=== PATIENT | male | born 1965 | race Caucasian/White ===

== ENCOUNTER → 2018-05-05 10:26 | Outpatient (CLI) | payer OTHER, SELFPAY ==
[2018-05-05 11:16] LABS: Erythrocyte Sedimentation Rate 25 mm/hr (0-20)
[2018-05-05 11:17] LABS: Absolute Lymphocyte Count 2.13 X10^3/ul (0.83-4.51); Absolute Neutrophil Count 4.9 X10^3/uL (2.0-7.7); Basophil# 0.03 X10^3/uL; Basophil% 0.4 % (0-1); Eosinophil# 0.21 X10^3/uL; Eosinophils% 2.6 % (0-5); Hematocrit 43.3 % (40-54); Lymphocyte # 2.13 X10^3/ul (4.0); Lymphocyte % 26.4 % (19-41); Mean Corp Hgb Conc 34.6 g/gl (32-36); Mean Corpuscular Hgb 29.6 pg (27.0-32.0); Mean Corpuscular Volume 85.6 fL (80-94); Mean Platelet Vol. 10.3 fl (6.2-12.0); Monocyte# 0.75 X10^3/uL; Monocyte% 9.3 % (0-10); Neutrophil # 4.93 X10^3/uL (2.7-7.7); Neutrophil % 61.1 % (47-70); Platelet Count 263 K/mm3 (150-450); RBC Distribution Width CV 14.7 % (11.6-14.6); RBC Distribution Width SD 45.3 fl (35.1-43.9); Red Blood Count 5.06 M/mm3 (4.6-6.2); White Blood Count 8.1 K/mm3 (4.4-11.0)
[2018-05-05 11:19] LABS: POSITIVE COUNT NO; POSITIVE DIFFERENTIAL NO; POSITIVE MORPHOLOGY NO
[2018-05-05 11:37] LABS: CRP 4.04 mg/L (0.0-3.0)
== END ==
PROVIDERS: Family Provider Family Medicine; PCP Family Medicine; Visit Provider Specialist
DX: M17.11 Unilateral primary osteoarthritis, right knee (principal)
CPT/HCPCS: 36415; 85025; 85652; 86140

== ENCOUNTER → 2019-02-09 08:22 | Outpatient (CLI) | payer OTHER, SELFPAY ==
[2016-01-24 08:13] VITALS: BMI 30.6
--- NOTE | 2019-02-09 08:36 | EKG12_ITS ---
Test Reason : PRE-OP Blood Pressure : / mmHG Vent. Rate : 097 BPM Atrial Rate : 097 BPM P-R Int : 160 ms QRS Dur : 088 ms QT Int : 318 ms P-R-T Axes : 057 -18 061 degrees QTc Int : 403 ms Normal sinus rhythm Normal ECG Confirmed by BRANDIE MEDEROS, JOEY ([id number]), slot editor CARLOS HANNAH ([id number] on 02/10/2019 4:05:34 PM Referred By: Troy Adam Confirmed By:JOEY DIEGO MD
[2019-02-09 08:55] LABS: Hematocrit 42.1 % (40-54); Hemoglobin 14.1 g/dl (13.0-16.5); Mean Corp Hgb Conc 33.5 g/gl (32-36); Mean Corpuscular Hgb 30.1 pg (27.0-32.0); Mean Corpuscular Volume 89.8 fL (80-94); Mean Platelet Vol. 9.8 fl (6.2-12.0); Platelet Count 273 K/mm3 (150-450); RBC Distribution Width CV 14.2 % (11.6-14.6); RBC Distribution Width SD 46.3 fl (35.1-43.9); Red Blood Count 4.69 M/mm3 (4.6-6.2); White Blood Count 8.4 K/mm3 (4.4-11.0)
[2019-02-09 08:56] LABS: Scan Indicated on CBC? Y/N NO
[2019-02-09 09:20] LABS: Anion Gap 6 (5-15); BUN 17 mg/dL (7-18); Calcium,Total 8.8 mg/dL (8.5-10.1); Chloride 104 mmol/L (98-107); EST Glomerular Filtration Rate 84 mL/min (>60); Est Glom Filt Rate - Afr Amer 101 mL/min (>60); Glucose 291 mg/dL (74-106); Potassium 4.5 mmol/L (3.5-5.1); Sodium Level 138 mmol/L (136-145)
[2019-02-09 09:28] LABS: Hemoglobin A1c 8.8 % (4.2-6.3)
== END ==
PROVIDERS: Family Provider Family Medicine; PCP Family Medicine; Referring Provider Physician Assistant Surgical; Visit Provider Physician Assistant Surgical
DX: Z01.818 Encounter for other preprocedural examination (principal); Z01.810 Encounter for preprocedural cardiovascular examination
CPT/HCPCS: 36415; 80048; 83036; 85027; 93005

== ENCOUNTER 2019-12-16 09:54 | Inpatient (IN) | payer OTHER, SELFPAY ==
[2019-11-25 10:08] VITALS: BP 127/77; PULSE 86; RESP 16; TEMP 36.8; O2SAT 97; BMI 31.0
[2019-11-25 10:52] LABS: Absolute Lymphocyte Count 2.68 X10^3/uL (0.83-4.51); Basophil# 0.04 X10^3/uL; Basophil% 0.4 % (0-1); Eosinophil# 0.21 X10^3/uL; Eosinophils% 1.9 % (0-5); Hematocrit 45.7 % (40-54); Hemoglobin 15.1 g/dL (13.0-16.5); Lymphocyte # 2.68 X10^3/ul (4.0); Lymphocyte % 24.8 % (19-41); Mean Corpuscular Hgb 28.8 pg (27.0-32.0); Mean Platelet Vol. 9.4 fl (6.2-12.0); Monocyte# 0.79 X10^3/uL; Monocyte% 7.3 % (0-10); NRBC Flagged by Analyzer 0 % (0-5); Neutrophil # 7.03 X10^3/uL (2.7-7.7); Neutrophil % 65.1 % (47-70); Platelet Count 274 K/mm3 (150-450); RBC Distribution Width CV 13.9 % (11.6-14.6); RBC Distribution Width SD 44.3 fl (35.1-43.9); Red Blood Count 5.25 M/mm3 (4.6-6.2); White Blood Count 10.8 K/mm3 (4.4-11.0)
[2019-11-25 11:04] LABS: Anion Gap 5 (5-15); BUN 12 mg/dL (7-18); BUN/Creat Ratio 13.7 RATIO (10-20); Chloride 103 mmol/L (98-107); Creatinine, Serum 0.88 mg/dL (0.70-1.30); EST Glomerular Filtration Rate 97 mL/min (>60); Est Glom Filt Rate - Afr Amer 117 mL/min (>60); Estimated Creatinine Clearance 104.58 ml/min; Glucose 79 mg/dL (74-106); Potassium 3.9 mmol/L (3.5-5.1); Sodium Level 134 mmol/L (136-145)
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
[2019-12-16] VITALS (15 sets, daily range): BP systolic 105–155; BP diastolic 72–84; PULSE 104–120; RESP 16–26; TEMP 36.4–37.5; O2SAT 93–98; BMI 31.0
[2019-12-16 10:30] LABS: Bedside Glucose 110 mg/dL (70-110)
[2019-12-16] MEDS: Scopolamine 1mg/72hr Patch 1 PATCH TRANSDERM. (10:42)
[2019-12-16] MEDS: Gabapentin 600 MG Tablet PO (10:42)
[2019-12-16] MEDS: Acetaminophen 500 MG Tablet 1000 MG PO ×2 (10:42→22:42)
[2019-12-16] MEDS: Celecoxib 200 MG Capsule 400 MG PO (10:42)
[2019-12-16] MEDS: Lactated Ringers 1,000 ML 999 ML IV (10:50)
[2019-12-16] MEDS: Cefazolin 2 GM in 0.9% Normal Saline 100 ML IV ×2 (12:07→15:43)
[2019-12-16] MEDS: Lactated Ringers 1,000 ML 125 ML IV ×3 (14:30→20:07)
--- NOTE | 2019-12-16 15:39 | PCM.OPRPT ---
Report of Operation Date of Procedure: 12/16/19 Pre-Operative Diagnosis: Painful left total knee arthroplasty, aseptic loosening Post-Operative Diagnosis: Painful left total knee arthroplasty, aseptic loosening Surgery/Procedure Performed:: Revision left total knee arthroplasty entire femoral and tibial components as well as patella. Description of Surgical Findings:: Stable knee with good patella tracking frame bender: Arvin Adam Type of Anesthesia:: Spinal Anesthesiologist: Teo Armstrong Special Medications: 2 g Ancef, 1 g TXA at incision, 1 g TXA closure, 10 mg Decadron, joint cocktail (5 mg Duramorph, 30 mL of 0.5% Ropivicaine, 1000 units of epinephrine, 30 mg of Toradol) Specimen's removed: 3 separate specimens were sent to microbiology Estimated Blood Loss (mL): 250 Fluids Replaced: 1400 ml crystalloid Description of Procedure: Implants used: Femur: [] Tibia: [] Poly: [] Patella: [] Brief history operative indications: 54-year-old male with left knee pain after total knee replacement. Patient had original partial knee replacement in 2011 followed by revision to total knee replacement in 2012. Subsequently had evidence of aseptic loosening on radiographs and progressive pain. Action was ruled out and after patient failed conservative treatment we elected to proceed with a revision left total knee replacement. Preoperative discussion included risks of surgery including but not short of infection, blood loss which could require transfusion, DVTs, PEs, nervous damage, infection, arthrofibrosis, general risk of anesthesia including loss of life. Patient demonstrates an understanding and was able to sign informed consent. Procedure: On the date of procedure patient's left lower extremity was marked in the preoperative area. The patient was then taken back to the operating room where the patient was placed on the table in the supine position. All bony prominences were identified a well-padded. Anesthesia assumed control of the C-spine and airway and remained controlled throughout the remainder of the procedure. A tourniquet was placed on the left upper thigh and the leg was prepped in a sterile fashion. The surgeon then scrubbed at this time. Upon reentering the room right lower extremity was draped in a standard orthopedic fashion. A timeout was then called and everyone agreed upon the side, the site, the procedure to be performed, patient's identity and antibiotics given. An Esmarch bandage was used to exsanguinate the extremity and the tourniquet was placed up to 250 mmHg with the knee in flexion. A midline skin incision was made using the previous incision and extending it proximally and distally to identify normal tissue planes. Medial and lateral flaps were developed appropriate releases. The standard medial parapatellar arthrotomy was made and the patella was subluxed laterally. At this time an aggressive synovectomy was performed re-creating the medial gutter first, then the suprapatellar pouch than the lateral gutter. Once this was completed the knee was flexed up an osteotome was used to remove the tibial polyethylene. The remainder of the synovium was debrided. The standard deep MCL release was done and the patella scar pad was resected and lateral releases were performed. Next our attention was directed to the femur. Wear flexible osteotomes and TPS saw were used to break up the implant cement interface. This was done both medially and laterally. After this is adequately lucent bone tamp was used to remove the femur component from the end of the bone. This was done with minimal bone loss. At this time attention was now directed towards the proximal tibia. Possible osteotome and TPS saw were then used to break up the proximal tibia implant interface and stacked osteotomes were used to remove the tibial implant. This was done with minimal bone loss. Our attention was then turned to the tibia where the intramedullary canal was reamed to 15 mm and intramedullary tibial cutting guide was used to make the appropriate tibial cut 90 degrees from the mechanical axis. A drop janny was then used to verify the cut. The proximal tibia was reamed for a size B:. We also elected to place a medial 5 mm tibial augment because patient had a medial uncontained tibial defect from previous surgery. A size 5 tibial base plate was selected. the knee was flexed and the tibial component was pinned into place and the boss reamer was used to ream the proximal medullary canal. The trial implant was impacted in its prepared position. Our attention was then turned back to the femur or the femur intramedullary canal was reamed to 17 mm. At this time a 100 mm x 17 mm intramedullary stem was placed on a 5 mm TC G distal cutting guide. The distal cutting guide was pinned in place at the appropriate joint line using the medial epicondyle to set the joint line. Once this was done the 11 mm tibial trial was put into place and the knee was flexed up to set the appropriate tibial rotation and balance the joint. Once we are happy with the balance of the joint a second pin was placed to hold the rotation in place. Once this was pinned in place anterior cut, anterior chamfer cut, posterior cut and posterior chamfer cuts were made. Based on these cuts we knew we would need a 10 mm distal and 5 mm posterior augment medially, and 10 mm distal and 5 mm posterior augment laterally. The box cutting guide was then pinned into place and the box cut was made using a reciprocating saw. The appropriate trials were then placed on the femur and tibia. A trial polyethylene was trialed to ensure proper balancing and stability of the knee. Patella tracking, was then verified and corrected appropriately as needed. Our attention was then directed to the patella. Patella was removed using a saw and bur to remove the pegs. At this time a 35 mm patella was prepared and the trial button was placed. Patellar tracking was again checked and deemed appropriate. At this time the tourniquet was let down. Hemostasis was obtained and final components were verified and opened, 6 liters of normal saline were irrigated throughout the joint under low-pressure lavage. Then the cement was mixed in a vacuum. Maris Simplex cement with tobramycin was used. The wound was copiously irrigated with normal saline. Prior to cementing the tourniquet was placed back up When the cement was ready the components were cemented into place starting with the tibia, femur with the knee in extension a press-fit patella was used and impacted into place. The trial poly component was placed and the knee was placed in full extension. All excess cement was removed in the process. Once the cement had cured the tracking, alignment and balance were verified and a size 11 mm TS polyethylene component was placed. Once the final components were placed the wound was lavaged with a chlorhexidine solution the wound was copiously irrigated with normal saline solution and the remainder of the periarticular injection was given. The wound was closed in a layer caballero fashion using #1 vicryl interrupted sutures for the arthrotomy, 2-0 interrupted Vicryl for the subcuticular layer and vik for final skin closure. A sterile compressive dressing was then placed. The patient was then awakened from anesthesia, transferred to the [facility] and transferred to the PACU for recovery. Post op plan DVT ppx: Xarelto due to previous DVT, thigh high compression stockings Follow up: in office in 2 weeks for wound check PT: to start POD #0 at hospital, outpatient PT should be arranged. Cultures: We will follow cultures, patient will be on doxycycline for 1 week as we follow cultures Patient will be on montelukast for 90 days due to multiple previous surgeries to help prevent scar tissue formation and arthrofibrosis. My physician assistant associate full professor was a vital part of this case. He was important in appropriate retraction during the case, and protection of soft tissues during bony cuts. His intimate knowledge of the case and my steps aided in safe and expedient completion of the procedure as well as appropriate position of the leg during the case. He was also vital in assisting with closure under my direct supervision. Grafts/Implants Used: [place] - Complications no intra-op complication - Admit VTE Documentation VTE Present on Admission: No VTE Mechan Device Prophylaxis: SCD's, Thigh High [place] Hose VTE Pharm Prophylaxis ordered?: Yes
--- NOTE | 2019-12-16 16:14 | RAD_ITS ---
STUDY: X-RAY - LEFT KNEE REASON FOR EXAM: Male, 54 years old. LEFT KNEE POST OP. TECHNIQUE: 3 view(s) of the knee. COMPARISON: None. FINDINGS: Status post left knee arthroplasty in approximate anatomic alignment. No acute fracture, dislocation or osseous destruction. Postsurgical changes are noted throughout the soft tissues. IMPRESSION: Status post left knee arthroplasty in approximate anatomic alignment.. Electronically Signed: Cirilo Flores, at 18:09 EST Tel , Service support , RAD/Knee 1 or 2 Views
[2019-12-16 16:31] LABS: Bedside Glucose 173 mg/dL (70-110)
[2019-12-16] MEDS: Cefazolin 1 GM/50 ML BAG IV (21:32)
[2019-12-16 22:21] LABS: Bedside Glucose 111 mg/dL (70-110)
[2019-12-16] MEDS: Senna/Docusate Sodium 1 Tablet 2 TABLET PO (22:41)
[2019-12-16] MEDS: Pravastatin 40 MG Tablet PO (22:42)
[2019-12-16] MEDS: Lisinopril 20 MG Tablet PO (22:43)
[2019-12-16] MEDS: Doxycycline 100 MG CAPSULE PO (22:43)
[2019-12-16] MEDS: Ketorolac 15 MG/ML Vial IV (22:46)
[2019-12-16] MEDS: oxyCODONE 5 MG Tablet PO (23:54)
[2019-12-17] VITALS (8 sets, daily range): BP systolic 125–144; BP diastolic 72–106; PULSE 107–118; RESP 16–18; TEMP 36.9–37.3; O2SAT 93–97
[2019-12-17] MEDS: Morphine 2 MG/ML Syringe IV ×2 (03:01→06:13)
[2019-12-17] MEDS: 0.9% Saline Lock 10 ML Syringe IV ×3 (03:02→14:39)
[2019-12-17] MEDS: oxyCODONE 5 MG Tablet PO ×5 (04:18→20:32)
[2019-12-17] MEDS: Cefazolin 1 GM/50 ML BAG IV (04:19)
[2019-12-17 05:42] LABS: Hematocrit 35.6 % (40-54); Hemoglobin 11.7 g/dL (13.0-16.5); Mean Corp Hgb Conc 32.9 g/dL (32-36); Mean Corpuscular Hgb 29.5 pg (27.0-32.0); Mean Corpuscular Volume 89.9 fL (80-94); Mean Platelet Vol. 9.7 fl (6.2-12.0); Platelet Count 226 K/mm3 (150-450); RBC Distribution Width CV 14.1 % (11.6-14.6); RBC Distribution Width SD 46.3 fl (35.1-43.9); Red Blood Count 3.96 M/mm3 (4.6-6.2); White Blood Count 12.4 K/mm3 (4.4-11.0)
[2019-12-17 05:50] LABS: Anion Gap 2 (5-15); BUN 16 mg/dL (7-18); BUN/Creat Ratio 19.4 RATIO (10-20); Calcium,Total 8.4 mg/dL (8.5-10.1); Chloride 103 mmol/L (98-107); Creatinine, Serum 0.82 mg/dL (0.70-1.30); EST Glomerular Filtration Rate 104 mL/min (>60); Est Glom Filt Rate - Afr Amer 126 mL/min (>60); Estimated Creatinine Clearance 112.24 ml/min; Glucose 162 mg/dL (74-106); Potassium 4.5 mmol/L (3.5-5.1); Sodium Level 135 mmol/L (136-145)
[2019-12-17] MEDS: Rivaroxaban 10 MG Tablet PO (06:02)
[2019-12-17] MEDS: Acetaminophen 500 MG Tablet 1000 MG PO ×3 (06:02→20:33)
[2019-12-17] MEDS: Ketorolac 15 MG/ML Vial IV ×2 (06:14→14:40)
[2019-12-17] MEDS: metFORMIN HCl 1,000 MG Tablet 1000 MG PO ×2 (07:49→16:25)
[2019-12-17] MEDS: Ensure Surgery 237 ML LIQUID PO ×2 (07:51→10:56)
[2019-12-17] MEDS: Insulin Lispro 100 UNIT/ML INSULN.PEN SC ×3 (07:51→16:24)
--- NOTE | 2019-12-17 10:40 | CASEMGMT ---
GRECIA [facility]DE Face to Face with patient for initial transition planning/care coordination assessment. RN CM introduced self and role at [facility]. Patient lying in bed, alert and oriented. Patient willing to participate in assessment and is able to answer all questions appropriately. Care providers, pharmacy, and demographics verified. Patient wishes to discharge home and is setup with outpatient therapy at [facility]. Patient states he has no further needs or concerns at this time. CM to follow for discharge planning needs that may arise. PCP: [facility] Specialists: renea Navarrete; Gerosn, psych; [facility]. Preferred Pharmacy: [facility] Insurance: [facility] Prescription Benefit: yes Living Will/HPOA: yes, Kaila Kate LNOK: Living Arrangements: Patient lives with in 1 story home with 1 step to enter the home. Transportation: DME/HHC: Patient has grab bars and walker, and is being setup with new crutches. Patient has outpatient therapy setup with [facility] for Saturday. Disposition Plan: Patient to discharge home with outpatient therapy, family support, and follow-up plans in place. Ching MAGALLANES, RN, CM
[2019-12-17] MEDS: FLUoxetine 20 MG Capsule PO (10:51)
[2019-12-17] MEDS: Famotidine 20 MG Tablet PO (10:51)
[2019-12-17] MEDS: Venlafaxine XR 37.5 MG Capsule PO (10:51)
[2019-12-17] MEDS: Doxycycline 100 MG CAPSULE PO ×2 (10:51→20:33)
[2019-12-17] MEDS: Senna/Docusate Sodium 1 Tablet 2 TABLET PO ×2 (10:52→20:34)
--- NOTE | 2019-12-17 11:08 | PN.ORTHO_ITS ---
Subjective: The patient was sitting in bed upon examination. Patient denies any chest pain, shortness of breath, dizziness, lightheadedness, nausea or vomiting, or calf pain. Patient states he continues to have increased pain in his postoperative left knee. He is complaining of pain laterally along the IT band. He states the numbness and tingling is improving since the spinal block. Patient is requesting nicotine patch. He did bring in his own nicotine patch from home which is 21 mg. Patient has had elevated blood pressure and tachycardia. He denies any chest pain or shortness of breath. His pain has been elevated and does not feel it is controlled on medications. Patient has been on chronic narcotics and takes [place] 10-325 mg at home. No adverse overnight events. Objective: Elevated blood pressure with mild tachycardia and afebrile. Denies any chest pain or shortness of breath. Patient is able to plantarflex and dorsiflex actively. Sensation is intact to light touch to saphenous, sural, superficial and deep peroneal, and tibial distribution. Dressing is clean dry and intact. Negative Homans bilaterally, negative signs and symptoms of DVT. Auscultation of the lungs and heart were performed. Patient was tachycardic but no appreciable murmur. There is no wheezing, rhonchi or rales appreciated on auscultation of the lungs. - Physical Exam Vitals/I&O's: Vital Signs Temp Pulse Resp BP Pulse Ox 99.1 F 109 H 16 133/106 H 93 12/17/19 07:28 12/17/19 07:28 12/17/19 07:28 12/17/19 07:28 12/17/19 08:38 Oxygen Flow Rate (L/min) 2 Oxygen Delivery Method Room Air Weight: 101 kg Body Mass Index (BMI) 31.0 Finger Stick Blood Glucose 173 Intake and Output for Last 24 Hours 12/15/19 12/16/19 12/17/19 23:59 23:59 23:59 Intake Total 2979.58 / 4665.00 4294.40 / 4294.40 Balance 2979.58 / 4665.00 4294.40 / 4294.40 General: Alert, Oriented x3, Cooperative Lungs: Clear to auscultation Cardiovascular: No murmurs, Tachycardic Microbiology Past 72 Hours 12/16/19 12:48 Tissue - Knee Gram Stain - Final 12/16/19 12:44 Tissue - Knee Gram Stain - Final Laboratory Results 12/16/19 16:24: POC Glucose 173 H 12/16/19 22:12: POC Glucose 111 H 12/17/19 05:08: WBC 12.4 H, RBC 3.96 L, Hgb 11.7 L, Hct 35.6 L, MCV 89.9, MCH 29.5, MCHC 32.9, RDW Std Deviation 46.3 H, RDW Coeff of Arjun 14.1, Plt Count 226, MPV 9.7 12/17/19 05:08: Sodium 135 L, Potassium 4.5, Chloride 103, Carbon Dioxide 30.0, Anion Gap 2 L, BUN 16, Creatinine 0.82, Estim Creat Clear Calc 112.24, Est GFR (MDRD) Af Amer 126, Est GFR (MDRD) Non-Af 104, BUN/Creatinine Ratio 19.4, Glucose 162 H, Calcium 8.4 L Current Medications Acetaminophen (Tylenol) 1,000 mg PO Q8 [facility] Last Admin: 12/17/19 06:02 Dose: 1,000 mg Documented by: Doxycycline Monohydrate (Doxycycline) 100 mg PO BID [facility] Last Admin: 12/17/19 10:51 Dose: 100 mg Documented by: Enteral Nutritional Formula (Ensure Surgery) 237 ml PO TIDCM [facility] Last Admin: 12/17/19 10:56 Dose: 237 ml Documented by: Famotidine (Pepcid) 20 mg PO DAILY [facility] Last Admin: 12/17/19 10:51 Dose: 20 mg Documented by: Fluoxetine HCl (Prozac) 20 mg PO DAILY [facility] Last Admin: 12/17/19 10:51 Dose: 20 mg Documented by: Sodium Chloride () 250 mls @ 15 mls/hr IV .[id number] PRN PRN Reason: Saline Flush Insulin Human Lispro (Humalog Kwikpen (Bkc)) 5 unit SC 0800,1200,1700 [facility] Last Admin: 12/17/19 07:51 Dose: 5 u Documented by: Ketorolac Tromethamine (Toradol (Bkc)) 15 mg IV Q6H PRN PRN PRN Reason: Pain Score 1-5/10 Stop: 12/18/19 15:37 Last Admin: 12/17/19 06:14 Dose: 15 mg Documented by: Lisinopril (Zestril) 20 mg PO QHS [facility] Last Admin: 12/16/19 22:43 Dose: 20 mg Documented by: Meloxicam (Mobic) 7.5 mg PO BID [facility] Last Admin: 12/17/19 07:49 Dose: 1,000 mg Documented by: Montelukast Sodium (Singulair) 10 mg PO DAILY@1700 [facility] Last Admin: 12/16/19 21:55 Dose: Not Given Documented by: Morphine Sulfate () 2 - 4 mg IV Q2H PRN PRN PRN Reason: Pain Score 6-10/10 Last Admin: 12/17/19 06:13 Dose: 4 mg Documented by: Nicotine (Nicoderm Cq (Pbkc)) 21 mg TRANSDERM. DAILY [facility] Ondansetron HCl (Zofran) 4 mg IV Q8H PRN PRN PRN Reason: NAUSEA Oxycodone HCl (Oxyir) 5 - 10 mg PO Q4H PRN PRN PRN Reason: Pain Score 4-10/10 Last Admin: 12/17/19 08:20 Dose: 10 mg Documented by: Pravastatin Sodium (Pravachol) 40 mg PO QHS [facility] Last Admin: 12/16/19 22:42 Dose: 40 mg Documented by: Promethazine HCl (Phenergan) 12.5 mg IM Q6H PRN PRN; Protocol PRN Reason: NAUSEA/VOMITING Rivaroxaban (Xarelto) 10 mg PO DAILY@0600 [facility] Last Admin: 12/17/19 06:02 Dose: 10 mg Documented by: Senna/Docusate Sodium (Senokot-S, Neda-Colace) 2 tablet PO BID [facility] Last Admin: 12/17/19 10:52 Dose: 2 tablet Documented by: Sodium Chloride () 10 - 40 ml IV UD PRN PRN Reason: SALINE FLUSH Last Admin: 12/17/19 06:15 Dose: 10 ml Documented by: Venlafaxine HCl (Effexor Xr) 37.5 mg PO DAILY [facility] Last Admin: 12/17/19 10:51 Dose: 37.5 mg Documented by: Medical Necessity - Tobacco Use Smoking Status: Current every day smoker Tobacco Use: Cigarettes, - Assessment/Plan 1. 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 Continue Pain Medications: Tylenol, oxycodone, and OxyIR. Pain medications are not controlling patient's pain. MS Contin 15 mg twice daily will be added for 4 days postoperatively. Patient is chronic pain medication patient. 3. DVT Prophylaxis: Xarelto 2 weeks postoperatively due to previous blood clot 4. PT/OT: Weightbearing as tolerated 5. H & H: 11.7/35.6, asymptomatic 6. Reactive leukocytosis: Currently 12.4, afebrile. Patient did receive Decadron intraoperatively 7. Nicotine dependence: Patient was given home dose of nicotine patch 21 mg. Patient did bring in his own patches but in order was given for hospital dose to be placed. 8. Encouraged Incentive Spirometry 9. Continue antibiotics while following cultures: Currently on doxycycline 1 week postoperatively 10. Disposition: Patient will require additional night stay due to pain control and elevated blood pressure. I do believe patient's heart rate and blood pressure is elevated due to pain control. MS Contin was added and I did discuss with him we will only keep him on this for 4 days postoperatively. We discussed chronic pain medication and postoperative pain control can be difficult with surgery. He voiced understanding. Patient has been on chronic narcotics and current pain medications are not controlling. Plan will be for possible discharge home tomorrow if pain is controlled and patient is medically stable.
[2019-12-17 11:26] LABS: Bedside Glucose 183 mg/dL (70-110)
[2019-12-17] MEDS: morphine SR 15 MG Tablet PO ×2 (11:40→20:36)
--- NOTE | 2019-12-17 14:12 | PCM.PN.HOSP ---
Subjective: 54-year-old male with a history of hypertension and diabetes presents for revision of his left knee. He has had he says 15 surgeries on that knee. Surgery was uneventful however were being consulted because his diastolic blood pressure slightly elevated and he was little bit tachycardic. Vitals/I&O's: Vital Signs Temp Pulse Resp BP Pulse Ox 98.5 F 118 H 18 144/85 H 96 12/17/19 13:30 12/17/19 13:30 12/17/19 13:30 12/17/19 13:30 12/17/19 13:30 Oxygen Flow Rate (L/min) 2 Oxygen Delivery Method Room Air Weight: 222 lb 10.67 oz Body Mass Index (BMI) 31.0 Finger Stick Blood Glucose 173 Intake and Output for Last 24 Hours 12/15/19 12/16/19 12/17/19 23:59 23:59 23:59 Intake Total 2979.58 / 4665.00 4294.40 / 4294.40 Balance 2979.58 / 4665.00 4294.40 / 4294.40 General: Alert, Oriented x3, Cooperative, No apparent distress HEENT: Atraumatic, PERRLA, EOMI, Normocephalic Oral: Moist Mucosa Neck: Supple, No JVD Lungs: Clear to auscultation, Normal air movement, No rhonchi, No wheeze, No rales Cardiovascular: Regular Rhythm, Normal S1, Normal S2, No murmurs, Tachycardic Abdomen: Soft, Non Tender, Non-Distended, No Hepato-splenomegaly Extremities: No edema, Capillary Refill Less than 3 Seconds Skin: No rashes, No breakdown, Incision - Dressing intact Neurological: Neuro grossly intact, Sensory exam intact to light touch and pain Psych/Mental Status: Normal Affect, Appropriate Microbiology Past 72 Hours 12/16/19 13:00 Tissue - Knee Gram Stain - Final 12/16/19 13:00 Tissue - Knee Wound Culture - Preliminary No growth-Final to follow 12/16/19 12:48 Tissue - Knee Gram Stain - Final 12/16/19 12:48 Tissue - Knee Wound Culture - Preliminary No growth-Final to follow 12/16/19 12:44 Tissue - Knee Gram Stain - Final 12/16/19 12:44 Tissue - Knee Wound Culture - Preliminary No growth-Final to follow Laboratory Results 12/16/19 16:24: POC Glucose 173 H 12/16/19 22:12: POC Glucose 111 H 12/17/19 05:08: WBC 12.4 H, RBC 3.96 L, Hgb 11.7 L, Hct 35.6 L, MCV 89.9, MCH 29.5, MCHC 32.9, RDW Std Deviation 46.3 H, RDW Coeff of Arjun 14.1, Plt Count 226, MPV 9.7 12/17/19 05:08: Sodium 135 L, Potassium 4.5, Chloride 103, Carbon Dioxide 30.0, Anion Gap 2 L, BUN 16, Creatinine 0.82, Estim Creat Clear Calc 112.24, Est GFR (MDRD) Af Amer 126, Est GFR (MDRD) Non-Af 104, BUN/Creatinine Ratio 19.4, Glucose 162 H, Calcium 8.4 L 12/17/19 07:46: POC Glucose 183 H Current Medications Acetaminophen (Tylenol) 1,000 mg PO Q8 [facility] Last Admin: 12/17/19 13:52 Dose: 1,000 mg Documented by: Doxycycline Monohydrate (Doxycycline) 100 mg PO BID [facility] Last Admin: 12/17/19 10:51 Dose: 100 mg Documented by: Famotidine (Pepcid) 20 mg PO DAILY [facility] Last Admin: 12/17/19 10:51 Dose: 20 mg Documented by: Fluoxetine HCl (Prozac) 20 mg PO DAILY [facility] Last Admin: 12/17/19 10:51 Dose: 20 mg Documented by: Sodium Chloride () 250 mls @ 15 mls/hr IV .[id number] PRN PRN Reason: Saline Flush Insulin Human Lispro (Humalog Kwikpen (Bk)) 5 unit SC 0800,1200,1700 [facility] Last Admin: 12/17/19 11:25 Dose: 5 u Documented by: Ketorolac Tromethamine (Toradol (Bkc)) 15 mg IV Q6H PRN PRN PRN Reason: Pain Score 1-5/10 Stop: 12/18/19 15:37 Last Admin: 12/17/19 06:14 Dose: 15 mg Documented by: Lisinopril (Zestril) 20 mg PO QHS [facility] Last Admin: 12/16/19 22:43 Dose: 20 mg Documented by: Meloxicam (Mobic) 7.5 mg PO BID [facility] Metformin HCl (Glucophage) 1,000 mg PO BIDCM [facility] Last Admin: 12/17/19 07:49 Dose: 1,000 mg Documented by: Montelukast Sodium (Singulair) 10 mg PO DAILY@1700 [facility] Last Admin: 12/16/19 21:55 Dose: Not Given Documented by: Morphine Sulfate (Ms Contin) 15 mg PO BID [facility] Last Admin: 12/17/19 11:40 Dose: 15 mg Documented by: Nicotine (Nicoderm Cq (Pbkc)) 21 mg TRANSDERM. DAILY [facility] Last Admin: 12/17/19 11:40 Dose: 21 mg Documented by: Nutritional Formula (Lactose Free) (Glucerna Shake) 120 ml PO TIDCM [facility] Ondansetron HCl (Zofran) 4 mg IV Q8H PRN PRN PRN Reason: NAUSEA Oxycodone HCl (Oxyir) 5 - 10 mg PO Q4H PRN PRN PRN Reason: Pain Score 4-10/10 Last Admin: 12/17/19 12:29 Dose: 10 mg Documented by: Pravastatin Sodium (Pravachol) 40 mg PO QHS [facility] Last Admin: 12/16/19 22:42 Dose: 40 mg Documented by: Promethazine HCl (Phenergan) 12.5 mg IM Q6H PRN PRN; Protocol PRN Reason: NAUSEA/VOMITING Rivaroxaban (Xarelto) 10 mg PO DAILY@0600 [facility] Last Admin: 12/17/19 06:02 Dose: 10 mg Documented by: Senna/Docusate Sodium (Senokot-S, Neda-Colace) 2 tablet PO BID [facility] Last Admin: 12/17/19 10:52 Dose: 2 tablet Documented by: Sodium Chloride () 10 - 40 ml IV UD PRN PRN Reason: SALINE FLUSH Last Admin: 12/17/19 06:15 Dose: 10 ml Documented by: Venlafaxine HCl (Effexor Xr) 37.5 mg PO DAILY [facility] Last Admin: 12/17/19 10:51 Dose: 37.5 mg Documented by: STROKE Vital Signs/Narrative: Vital Signs Temp Pulse Resp BP Pulse Ox 12/17/19 13:30 98.5 F 118 H 18 144/85 H 96 Medical Necessity - Tobacco Use Smoking Status: Current every day smoker Tobacco Use: Cigarettes, - Assessment/Plan 1. Revision of left total knee replacement status post 12/16/2019 -Continue with his current pain management, he has seen pain management as an outpatient for and he has been on chronic narcotics for him is pending to control will be challenging -Continue with the MS Contin as well as the oxycodone however I would hold off on making significant adjustments in his pain management during the acute healing process -Xarelto for anticoagulation -Continue with PT/OT 2. HTN/tachycardia/HLD -Blood pressure and tachycardia are likely secondary to pain -Continue with his lisinopril at 20 -Continue with pravastatin 3. DM 2 -Stable he is on his home metformin as well as his insulin, will continue both -Accu-Cheks 4. Anxiety/depression -Continue with Effexor and Prozac -Stable DVT: Xarelto Code Visit Inpatient E&M: 23319 Subs Hosp L2
[2019-12-17] MEDS: Montelukast 10 MG Tablet PO (16:25)
[2019-12-17] MEDS: Glucerna Shake 120 ML LIQUID PO (16:31)
[2019-12-17 16:36] LABS: Bedside Glucose 186 mg/dL (70-110)
[2019-12-17] MEDS: Pravastatin 40 MG Tablet PO (20:33)
[2019-12-17] MEDS: Lisinopril 20 MG Tablet PO (20:34)
[2019-12-18 00:06] LABS: Bedside Glucose 242 mg/dL (70-110)
[2019-12-18] MEDS: oxyCODONE 5 MG Tablet PO ×6 (00:24→22:05)
[2019-12-18 04:00] VITALS: BP 126/86; PULSE 112; RESP 16; TEMP 36.6; O2SAT 94
[2019-12-18] MEDS: Acetaminophen 500 MG Tablet 1000 MG PO ×3 (05:40→22:01)
[2019-12-18] MEDS: Rivaroxaban 10 MG Tablet PO (05:41)
[2019-12-18 05:53] LABS: Hematocrit 34.9 % (40-54); Hemoglobin 11.5 g/dL (13.0-16.5); Mean Corpuscular Hgb 28.6 pg (27.0-32.0); Mean Corpuscular Volume 86.8 fL (80-94); Mean Platelet Vol. 9.6 fl (6.2-12.0); Platelet Count 226 K/mm3 (150-450); RBC Distribution Width CV 13.8 % (11.6-14.6); RBC Distribution Width SD 44.1 fl (35.1-43.9); Red Blood Count 4.02 M/mm3 (4.6-6.2); White Blood Count 10.3 K/mm3 (4.4-11.0)
--- NOTE | 2019-12-18 07:23 | PN.ORTHO_ITS ---
Subjective: The patient was sitting in bed upon examination. Patient denies any chest pain, shortness of breath, dizziness, lightheadedness, nausea or vomiting, or calf pain. Patient continues to complain of pain in the left knee but he states it does feel slightly improved. The numbness is improving and he states he only has numbness in the big toe. He has difficult time with straight leg raise. Complaining of thigh discomfort which could be secondary to tourniquet. No adverse overnight events. Patient has continued to have mild tachycardia but d enies any chest pain, racing heart, shortness of breath. Blood pressure appears to be slightly improving. Medicine has been consulted due to the tachycardia and elevated blood pressure. Patient has already been in contact with his pain management physician and states she is already prescribed Percocet 10 mg / 325 mg. Objective: Vital signs stable and afebrile. Patient is able to plantarflex and dorsiflex actively. Sensation is intact to light touch to saphenous, sural, superficial and deep peroneal, and tibial distribution. Dressing is clean dry and intact. Negative Homans bilaterally, negative signs and symptoms of DVT. - Physical Exam Vitals/I&O's: Vital Signs Temp Pulse Resp BP Pulse Ox 97.8 F 112 H 16 126/86 H 94 12/18/19 04:00 12/18/19 04:00 12/18/19 04:00 12/18/19 04:00 12/18/19 04:00 Oxygen Flow Rate (L/min) 2 Oxygen Delivery Method Room Air Weight: 101 kg Body Mass Index (BMI) 31.0 Finger Stick Blood Glucose 173 Intake and Output for Last 24 Hours 12/16/19 12/17/19 12/18/19 23:59 23:59 23:59 Intake Total 2979.58 / 4665.00 4294.40 / 4294.40 Balance 2979.58 / 4665.00 4294.40 / 4294.40 General: Alert, Oriented x3, Cooperative Microbiology Past 72 Hours 12/16/19 13:00 Tissue - Knee Gram Stain - Final 12/16/19 13:00 Tissue - Knee Wound Culture - Preliminary No growth-Final to follow 12/16/19 12:48 Tissue - Knee Gram Stain - Final 12/16/19 12:48 Tissue - Knee Wound Culture - Preliminary No growth-Final to follow 12/16/19 12:44 Tissue - Knee Gram Stain - Final 12/16/19 12:44 Tissue - Knee Wound Culture - Preliminary No growth-Final to follow Laboratory Results 12/17/19 07:46: POC Glucose 183 H 12/17/19 11:23: POC Glucose 242 H 12/17/19 16:22: POC Glucose 186 H 12/18/19 05:32: WBC 10.3, RBC 4.02 L, Hgb 11.5 L, Hct 34.9 L, MCV 86.8, MCH 28.6, MCHC 33.0, RDW Std Deviation 44.1 H, RDW Coeff of Arjun 13.8, Plt Count 226, MPV 9.6 Current Medications Acetaminophen (Tylenol) 1,000 mg PO Q8 [facility] Last Admin: 12/18/19 05:40 Dose: 1,000 mg Documented by: Doxycycline Monohydrate (Doxycycline) 100 mg PO BID [facility] Last Admin: 12/17/19 20:33 Dose: 100 mg Documented by: Famotidine (Pepcid) 20 mg PO DAILY [facility] Last Admin: 12/17/19 10:51 Dose: 20 mg Documented by: Fluoxetine HCl (Prozac) 20 mg PO DAILY [facility] Last Admin: 12/17/19 10:51 Dose: 20 mg Documented by: Sodium Chloride () 250 mls @ 15 mls/hr IV .[id number] PRN PRN Reason: Saline Flush Insulin Human Lispro (Humalog Kwikpen (Bkc)) 5 unit SC 0800,1200,1700 [facility] Last Admin: 12/17/19 16:24 Dose: 5 u Documented by: Lisinopril (Zestril) 20 mg PO QHS [facility] Last Admin: 12/17/19 20:34 Dose: 20 mg Documented by: Meloxicam (Mobic) 7.5 mg PO BID [facility] Metformin [facility] ([facility]uc[facility]) [facility] Last Admin: 12/17/19 16:25 Dose: 1,000 mg Documented by: Montelukast Sodium (Singulair) 10 mg PO DAILY@1700 [facility] Last Admin: 12/17/19 16:25 Dose: 10 mg Documented by: Morphine Sulfate (Ms Contin) 15 mg PO BID [facility] Last Admin: 12/17/19 20:36 Dose: 15 mg Documented by: Nicotine (Nicoderm Cq (Pbkc)) 21 mg TRANSDERM. DAILY [facility] Last Admin: 12/17/19 11:40 Dose: 21 mg Documented by: Nutritional Formula (Lactose Free) (Glucerna Shake) 120 ml PO TIDCM [facility] Last Admin: 12/17/19 16:31 Dose: 120 ml Documented by: Ondansetron HCl (Zofran) 4 mg IV Q8H PRN PRN PRN Reason: NAUSEA Oxycodone HCl (Oxyir) 5 - 10 mg PO Q4H PRN PRN PRN Reason: Pain Score 4-10/10 Last Admin: 12/18/19 05:41 Dose: 5 mg Documented by: Pravastatin Sodium (Pravachol) 40 mg PO QHS [facility] Last Admin: 12/17/19 20:33 Dose: 40 mg Documented by: Promethazine HCl (Phenergan) 12.5 mg IM Q6H PRN PRN; Protocol PRN Reason: NAUSEA/VOMITING Rivaroxaban (Xarelto) 10 mg PO DAILY@0600 [facility] Last Admin: 12/18/19 05:41 Dose: 10 mg Documented by: Senna/Docusate Sodium (Senokot-S, Neda-Colace) 2 tablet PO BID [facility] Last Admin: 12/17/19 20:34 Dose: 2 tablet Documented by: Sodium Chloride () 10 - 40 ml IV UD PRN PRN Reason: SALINE FLUSH Last Admin: 12/17/19 14:39 Dose: 10 ml Documented by: Venlafaxine HCl (Effexor Xr) 37.5 mg PO DAILY [facility] Last Admin: 12/17/19 10:51 Dose: 37.5 mg Documented by: Medical Necessity - Tobacco Use Smoking Status: Current every day smoker Tobacco Use: Cigarettes, - Assessment/Plan 1. 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 Continue Pain Medications: Tylenol, oxycodone, and OxyIR. Patient required MS Contin due to increased pain. Patient has chronic pain management patient. Patient states he has already contacted his pain management doctor Dr. Pruitt. She is already given him a prescription for Percocet 10-325 mg. I explained to the patient that we will only do the MS Contin for an additional 3 days. Prior to getting the medication filled he is to contact the pain management doctor to make sure she is okay with adding this medication postoperatively due to the increased pain. He voiced understanding and will contact her prior to filling the medication. 3. DVT Prophylaxis: Xarelto 2 weeks postoperatively due to previous blood clot 4. PT/OT: Weightbearing as tolerated 5. H & H: 11.5/34.9, asymptomatic 6. Reactive leukocytosis: Resolved, currently 10.3, afebrile. Patient did receive Decadron intraoperatively 7. Nicotine dependence: Patient was given home dose of nicotine patch 21 mg. Patient did bring in his own patches but in order was given for hospital dose to be placed. 8. Encouraged Incentive Spirometry 9. Continue antibiotics while following cultures: Currently on doxycycline 1 week postoperatively 10. Continue postoperative medical management per medicine: Continue to follow hypertension and mild tachycardia. Will discuss with hospitalist. 11. Disposition: Plan will be for possible discharge home today if cleared by medicine. Patient has had some mild tachycardia and elevated blood pressure but denies any chest pain, shortness of breath, racing heart, calf pain. Prescriptions will be E scribed to right [facility]. We discu ssed in detail his narcotics and will be given a written prescription for the MS Contin. Prior to filling this prescription he is to contact his pain management doctor to see if she is okay with him using this due to the elevated pain levels. He is not to take Tylenol in addition to the Percocet. He will continue with Xarelto for DVT prophylaxis due to previous history of blood clot. He will follow-up per postop instructions. Patient does have outpatient physical therapy established. I have reviewed the [place] [employer] Reporting System (OARRS) report for this patient for refill pattern and other prescriber involvement as part of the appropriate surveillance for the provision of acute and chronic controlled medications. The report was requested and reviewed on the date of this entry and was considered in the prescribing process.
--- NOTE | 2019-12-18 07:41 | PCM.DC.TKR ---
Discharge Diet: 1800 Calorie Control Diet Discharge Activity: May Not Drive May shower in (days): 0 - Turn dressing away from water. Dressing must be intact to skin Ice area for (Minutes): 20 - Every 1-2 hours while awake Weight Bearing Status: Weight bearing as tolerated Elevate: Operative Extremity Additional Activity Instructions:: Wear elastic stockings for 2 weeks after your surgery. Call your doctor if your incision/area has: Continuous Slow Oozing, Sudden Increased Bleeding, Increased Pain/ Swelling, Increased Redness, Foul Smelling Discharge Call your doctor if you observe: Fever of 101 or Higher, Coldness, Increased Pain, Numbness or Tingling, Change in Color, Calf discomfort, Uncontrolled pain Remove Dressing in (days):: 2 - Okay to remove dressing on December 21, 2019 Additional Instructions: Follow orthopedic postop instructions Contact pain management doctor prior to filling the MS Contin. Continue with the Percocet that was prescribed by pain management Dr. Pruitt. Continue with antibiotics for 6 weeks postoperatively. DVT treatment: Hospitalist placed patient on Xarelto 15 mg twice daily for 3 weeks which will then be transitioned to 20 mg after that. Patient is to follow-up with his primary care physician for continued treatment of the bilateral pulmonary emboli. This is his second DVT following surgery. Blood pressure medications: Hospitalist also switched patient to metoprolol due to the tachycardia. Patient will continue with the metoprolol and stop the lisinopril. After following up with his PCP they can continue to adjust and treat his hypertensive medications. Allergies/Adverse Reactions: Allergies cyclobenzaprine HCl [From Flexeril] Adverse Reaction (Verified 12/16/19 18:35) anxious MAKES ANXIOUS Medications to take at Discharge Pravastatin [Pravachol] 40 mg PO QHS 01/17/16 metFORMIN HCl [Glucophage] 1,000 mg PO BIDCM 01/17/16 Desvenlafaxine Succinate [Pristiq] 50 mg PO DAILY 11/25/19 Fluoxetine HCl [Prozac] 20 mg PO DAILY 11/25/19 Insulin Glulisine [Apidra] 5 unit SQ TIDCM 11/25/19 Nicotine [Nicotine Patch] 1 ea TD DAILY 11/25/19 Doxycycline 100 mg PO BID 40 Days #80 cap 12/18/19 Montelukast [Singulair] 10 mg PO DAILY@1700 90 Days #90 tab 12/18/19 Senna/Docusate Sodium [Senokot-S] 2 tab PO BID #10 tab 12/18/19 morphine SR tablet [Ms Contin] 15 mg PO BID 3 Days #6 tab 12/18/19 Insulin Glargine [Lantus SoloStar Pen] 22 units SUBCUT QHS 12/19/19 Metoprolol Tartrate [Lopressor (beta zuleima)] 25 mg PO BID #42 tab 12/19/19 Rivaroxaban [Xarelto] 15 mg PO BIDCM #42 tab 12/19/19 The following prescriptions were given: Doxycycline 100 mg PO BID 40 Days #80 cap Transmission Status: Received by [facility] [facility] Metoprolol Tartrate [Lopressor (beta zuleima)] 25 mg PO BID #42 tab Transmission Status: Pending to [facility] morphine SR tablet [Ms Contin] 15 mg PO BID 3 Days #6 tab Prescription Printed Senna/Docusate Sodium [Senokot-S] 2 tab PO BID #10 tab Transmission Status: Received by [facility] [facility] Montelukast [Singulair] 10 mg PO DAILY@1700 90 Days #90 tab Transmission Status: Received by [facility] Rivaroxaban [Xarelto] 15 mg PO BIDCM #42 tab Transmission Status: Pending to [facility] [facility] Primary Care Physician: Mason Monahan III, MD [Primary Care Provider] - Please follow up with your Primary Care Physician in: Follow-up 1 week with PCP due to pulmonary emboli Test Results: Test results from this visit will be discussed in further detail at your follow-up appointment, if applicable. Please Follow Up With: [facility] When: 12/21/19 @ 8:00 am with Zohreh Please Follow Up With: Troy Adam PA-C When: 12/30/19 @ 9:15 am
[2019-12-18 08:59] LABS: Thyroid Stim Hormone (TSH) 1.23 uIU/mL (0.358-3.74)
[2019-12-18 09:23] VITALS: BP 122/73; PULSE 105; RESP 18; TEMP 36.2; O2SAT 96
[2019-12-18] MEDS: morphine SR 15 MG Tablet PO ×2 (09:24→22:02)
[2019-12-18] MEDS: Doxycycline 100 MG CAPSULE PO ×2 (09:25→22:00)
[2019-12-18] MEDS: Meloxicam 7.5 MG Tablet PO ×2 (09:25→22:00)
[2019-12-18] MEDS: metFORMIN HCl 1,000 MG Tablet 1000 MG PO ×2 (09:25→18:14)
[2019-12-18] MEDS: Senna/Docusate Sodium 1 Tablet 2 TABLET PO ×2 (09:25→22:00)
[2019-12-18] MEDS: FLUoxetine 20 MG Capsule PO (09:26)
[2019-12-18] MEDS: Venlafaxine XR 37.5 MG Capsule PO (09:26)
[2019-12-18] MEDS: Famotidine 20 MG Tablet PO (09:26)
--- NOTE | 2019-12-18 10:33 | PCM.PN.HOSP ---
Subjective: Patient seen and examined. Pain in knee is better controlled and he rates it at 5/10. He was having physical therapy at time of review and states pain has worsened slightly at that point. He admits to palpitations but denies any dizziness, shortness of breath, nausea vomiting or diarrhea. Patient has remained persistently tachycardic since admission; HR has been ranging from 105-120. It was thought to be due to pain. However when 1 pain is well controlled, patient remains tachycardic. Labs and vitals reviewed. Vitals/I&O's: Vital Signs Temp Pulse Resp BP Pulse Ox 97.1 F L 105 H 18 122/73 H 96 12/18/19 09:23 12/18/19 09:23 12/18/19 09:23 12/18/19 09:23 12/18/19 09:23 Oxygen Flow Rate (L/min) 2 Oxygen Delivery Method Room Air Weight: 222 lb 10.67 oz Body Mass Index (BMI) 31.0 Finger Stick Blood Glucose 173 Intake and Output for Last 24 Hours 12/16/19 12/17/19 12/18/19 23:59 23:59 23:59 Intake Total 2979.58 / 4665.00 4294.40 / 4294.40 Balance 2979.58 / 4665.00 4294.40 / 4294.40 General: Alert, Oriented x3, Cooperative, No apparent distress HEENT: Atraumatic, PERRLA, EOMI, Normocephalic Oral: Moist Mucosa Neck: Supple, No JVD, Negative Carotid Bruits Lungs: Clear to auscultation, Normal air movement, No rhonchi, No wheeze, No rales Cardiovascular: Regular rate, Regular Rhythm, Normal S1, Normal S2, No murmurs Abdomen: Bowel Sounds Present, Soft, Non Tender, Non-Distended, No Hepato-splenomegaly Extremities: No clubbing, No cyanosis, No edema, Capillary Refill Less than 3 Seconds Skin: No rashes, No breakdown Musculoskeletal: - - right knee dressing intact Lymphatic: No Cervical, Supraclavicular, or Inguinal Adenopathy Neurological: Cranial nerves II-XII grossly intact, Neuro grossly intact, Motor Exam 5/5 strength throughout Psych/Mental Status: Normal Affect, Appropriate, Alert and oriented to time, place, person, mood and affect Microbiology Past 72 Hours 12/16/19 13:00 Tissue - Knee Gram Stain - Final 12/16/19 13:00 Tissue - Knee Wound Culture - Preliminary No growth-Final to follow 12/16/19 12:48 Tissue - Knee Gram Stain - Final 12/16/19 12:48 Tissue - Knee Wound Culture - Preliminary No growth-Final to follow 12/16/19 12:44 Tissue - Knee Gram Stain - Final 12/16/19 12:44 Tissue - Knee Wound Culture - Preliminary No growth-Final to follow Laboratory Results 12/17/19 07:46: POC Glucose 183 H 12/17/19 11:23: POC Glucose 242 H 12/17/19 16:22: POC Glucose 186 H 12/18/19 05:32: WBC 10.3, RBC 4.02 L, Hgb 11.5 L, Hct 34.9 L, MCV 86.8, MCH 28.6, MCHC 33.0, RDW Std Deviation 44.1 H, RDW Coeff of Arjun 13.8, Plt Count 226, MPV 9.6 12/18/19 05:32: TSH 1.23 Current Medications Acetaminophen (Tylenol) 1,000 mg PO Q8 [facility] Last Admin: 12/18/19 05:40 Dose: 1,000 mg Documented by: Doxycycline Monohydrate (Doxycycline) 100 mg PO BID [facility] Last Admin: 12/18/19 09:25 Dose: 100 mg Documented by: Famotidine (Pepcid) 20 mg PO DAILY [facility] Last Admin: 12/18/19 09:26 Dose: 20 mg Documented by: Fluoxetine HCl (Prozac) 20 mg PO DAILY [facility] Last Admin: 12/18/19 09:26 Dose: 20 mg Documented by: Sodium Chloride () 250 mls @ 15 mls/hr IV .[id number] PRN PRN Reason: Saline Flush Insulin Human Lispro (Humalog Kwikpen (Bkc)) 5 unit SC 0800,1200,1700 [facility] Last Admin: 12/18/19 09:26 Dose: Not Given Documented by: Lisinopril (Zestril) 20 mg PO QHS [facility] Last Admin: 12/17/19 20:34 Dose: 20 mg Documented by: Meloxicam (Mobic) 7.5 mg PO BID [facility] Last Admin: 12/18/19 09:25 Dose: 7.5 mg Documented by: Metformin HCl (Glucophage) 1,000 mg PO BIDCM [facility] Last Admin: 12/18/19 09:25 Dose: 1,000 mg Documented by: Montelukast Sodium (Singulair) 10 mg PO DAILY@1700 [facility] Last Admin: 12/17/19 16:25 Dose: 10 mg Documented by: Morphine Sulfate (Ms Contin) 15 mg PO BID [facility] Last Admin: 12/18/19 09:24 Dose: 15 mg Documented by: Nicotine (Nicoderm Cq (Pbkc)) 21 mg TRANSDERM. DAILY [facility] Last Admin: 12/18/19 09:26 Dose: 21 mg Documented by: Nutritional Formula (Lactose Free) (Glucerna Shake) 120 ml PO TIDCM [facility] Last Admin: 12/18/19 09:26 Dose: Not Given Documented by: Ondansetron HCl (Zofran) 4 mg IV Q8H PRN PRN PRN Reason: NAUSEA Oxycodone HCl (Oxyir) 5 - 10 mg PO Q4H PRN PRN PRN Reason: Pain Score 4-10/10 Last Admin: 12/18/19 10:11 Dose: 10 mg Documented by: Pravastatin Sodium (Pravachol) 40 mg PO QHS [facility] Last Admin: 12/17/19 20:33 Dose: 40 mg Documented by: Promethazine HCl (Phenergan) 12.5 mg IM Q6H PRN PRN; Protocol PRN Reason: NAUSEA/VOMITING Rivaroxaban (Xarelto) 10 mg PO DAILY@0600 [facility] Last Admin: 12/18/19 05:41 Dose: 10 mg Documented by: Senna/Docusate Sodium (Senokot-S, Neda-Colace) 2 tablet PO BID [facility] Last Admin: 12/18/19 09:25 Dose: 2 tablet Documented by: Sodium Chloride () 10 - 40 ml IV UD PRN PRN Reason: SALINE FLUSH Last Admin: 12/17/19 14:39 Dose: 10 ml Documented by: Venlafaxine HCl (Effexor Xr) 37.5 mg PO DAILY [facility] Last Admin: 12/18/19 09:26 Dose: 37.5 mg Documented by: STROKE Vital Signs/Narrative: Vital Signs Temp Pulse Resp BP Pulse Ox 12/18/19 09:23 97.1 F L 105 H 18 122/73 H 96 Medical Necessity - Tobacco Use Smoking Status: Current every day smoker Tobacco Use: Cigarettes, - Assessment/Plan 1. Left total knee revision today is POD 2 pain is fairly well controlled on MS contin and oxycodone, per orthopedics management as per orthopedics incentive spirometer PT/OT on board 2. Sinus tachycardia Patient has been tachycardic since admission with heart rate ranging between 105 and 120. It was thought to be due to pain but pain control is improving but he still remains tachycardic. TSH checked is within normal limits at 1.2. He does have a history of DVT after surgery in 2013. will check D dimer- D dimer was elevated at 1.73, though this can also be explained by surgery Will order CTA of chest to rule out PE- CTA independently reviewed and was suspicious for PE. Discussed with Dr. Pollock and it showed PE in the right upper lobe branches of the pulmonary arteries. will start on therapeutic dose of xarelto- 15mg bic x 21 days, then to continue on 20mg daily. 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 Type 2 diabetes mellitus: On metformin and insulin glulisine 5 units 3 times daily with meals.. Accu-Cheks AC at bedtime. 4. Anxiety and depression: On Effexor and Prozac. Prophylaxis: now on therapeutic anticoagulation o/a of PE Code Visit Inpatient E&M: 12664 Subs Hosp L2
[2019-12-18 11:52] LABS: D-Dimer Quantitative (DVT/PE) 1.73 FEU/ug/m (0.27-0.49)
--- NOTE | 2019-12-18 11:54 | CT_ITS ---
STUDY: CTA CHEST REASON FOR EXAM: Male, 54 years old. ELEV DDI LUDWIN/TACHYCARDIA/RECENT KNEE SURGERY/HX OF PE RADIATION DOSAGE (If Supplied By Facility): CTDIvol = ( 13.35 ) mGy, DLP = ( 555.05 ) mGycm TECHNIQUE: The examination was performed with the intravenous administration of Isovue 370 100ml. Post-processing of the angiographic images was performed, with multiplanar reformation and 3D reconstruction. Individualized dose optimization techniques were used for this CT. COMPARISON: None. FINDINGS: Multiple intraluminal filling defects are seen in the branches of the right upper lobe and right lower lobe pulmonary arteries in keeping with the pulmonary emboli. Less numerous filling defects are also seen in the left upper lobe pulmonary arteries. Normal thoracic aorta and visualized great vessels. There is no demonstrated aortic dissection. Normal heart and pericardium. Normal mediastinum. There are calcified left hilar lymph nodes. Normal visualized trachea and bronchi. The lungs are well expanded. Minimal degree of groundglass appearance in the posterior aspect of the right middle lobe abutting the right major fissure. Normal pleura. Normal chest wall structures. Normal osseous structures. Normal visualized upper abdomen. CT/CTA Chest W/WO Contrast IMPRESSION: Bilateral pulmonary emboli. The referring physician has been notified. Electronically Signed: Luis Pollock, at 13:04 EST , Service support ,
[2019-12-18 14:21] LABS: Bedside Glucose 192 mg/dL (70-110)
[2019-12-18] MEDS: Insulin Lispro 100 UNIT/ML INSULN.PEN SC ×2 (14:21→18:14)
[2019-12-18 15:06] VITALS: BP 136/89; PULSE 117; RESP 18; TEMP 36.7; O2SAT 98
[2019-12-18] MEDS: Rivaroxaban 2.5 MG Tablet 5 MG PO (15:09)
--- NOTE | 2019-12-18 15:56 | CASEMGMT ---
GRECIA CAMPOVERDE NOTE: Anticipate pt will discharge home on Xarelto. Given Xarelto 30-day savings card and instructed on use. Pt voices understanding. Pt states all of his medications are covered under Worker's Comp and that he never has to pay for them, but states will take this in to the pharmacy when picking up his medications. Yodit MAGALLANES RN CM
[2019-12-18] MEDS: Glucerna Shake 120 ML LIQUID PO (18:14)
[2019-12-18] MEDS: Montelukast 10 MG Tablet PO (18:14)
[2019-12-18] MEDS: Rivaroxaban 15 MG Tablet PO (18:16)
[2019-12-18 21:10] VITALS: BP 125/73; PULSE 120; RESP 18; TEMP 37.1; O2SAT 96
[2019-12-18] MEDS: Pravastatin 40 MG Tablet PO (22:00)
[2019-12-18] MEDS: Lisinopril 20 MG Tablet PO (22:03)
[2019-12-19] MEDS: oxyCODONE 5 MG Tablet PO ×3 (02:29→10:37)
[2019-12-19 03:10] VITALS: BP 116/77; PULSE 110; RESP 20; TEMP 36.3; O2SAT 97
[2019-12-19] MEDS: Acetaminophen 500 MG Tablet 1000 MG PO (06:40)
[2019-12-19 06:51] LABS: Hematocrit 33.3 % (40-54); Hemoglobin 10.9 g/dL (13.0-16.5); Mean Corp Hgb Conc 32.7 g/dL (32-36); Mean Corpuscular Hgb 28.7 pg (27.0-32.0); Mean Corpuscular Volume 87.6 fL (80-94); Mean Platelet Vol. 9.6 fl (6.2-12.0); Platelet Count 223 K/mm3 (150-450); RBC Distribution Width CV 13.8 % (11.6-14.6); RBC Distribution Width SD 44.2 fl (35.1-43.9); White Blood Count 9.2 K/mm3 (4.4-11.0)
[2019-12-19 07:46] VITALS: BP 112/66; PULSE 107; RESP 18; TEMP 36.4; O2SAT 96
[2019-12-19] MEDS: Glucerna Shake 120 ML LIQUID PO (08:09)
[2019-12-19] MEDS: metFORMIN HCl 1,000 MG Tablet 1000 MG PO (08:18)
[2019-12-19] MEDS: Insulin Lispro 100 UNIT/ML INSULN.PEN SC ×2 (08:19→12:17)
[2019-12-19] MEDS: Rivaroxaban 15 MG Tablet PO (08:20)
[2019-12-19] MEDS: Doxycycline 100 MG CAPSULE PO (08:20)
[2019-12-19] MEDS: Venlafaxine XR 37.5 MG Capsule PO (08:22)
[2019-12-19] MEDS: Meloxicam 7.5 MG Tablet PO (08:22)
[2019-12-19] MEDS: Senna/Docusate Sodium 1 Tablet 2 TABLET PO (08:22)
[2019-12-19] MEDS: FLUoxetine 20 MG Capsule PO (08:22)
[2019-12-19] MEDS: Famotidine 20 MG Tablet PO (08:22)
[2019-12-19 08:31] LABS: Bedside Glucose 188 mg/dL (70-110)
--- NOTE | 2019-12-19 10:06 | PN_ITS ---
Subjective: Patient seen and examined. He complains of feeling his heart racing this morning but had resolved at time of review. Pain is well controlled. Review of systems is otherwise negative. Labs and vitals reviewed. He still remains tachycardic and heart rate was around 107 this morning. Vitals/I&O's: Vital Signs Temp Pulse Resp BP Pulse Ox 97.5 F L 107 H 18 112/66 96 12/19/19 07:46 12/19/19 07:46 12/19/19 07:46 12/19/19 07:46 12/19/19 07:46 Oxygen Flow Rate (L/min) 2 Oxygen Delivery Method Room Air Weight: 222 lb 10.67 oz Body Mass Index (BMI) 31.0 Finger Stick Blood Glucose 173 Intake and Output for Last 24 Hours 12/17/19 12/18/19 12/19/19 23:59 23:59 23:59 Intake Total 4294.40 / 4294.40 Balance 4294.40 / 4294.40 General: Alert, Oriented x3, Cooperative, No apparent distress HEENT: Atraumatic, PERRLA, EOMI, Normocephalic Oral: Moist Mucosa Neck: Supple, No JVD, Negative Carotid Bruits Lungs: Clear to auscultation, Normal air movement, No rhonchi, No wheeze, No rales Cardiovascular: Regular rate, Regular Rhythm, Normal S1, Normal S2, No murmurs Abdomen: Bowel Sounds Present, Soft, Non Tender, Non-Distended, No Hepato- splenomegaly Extremities: No clubbing, No cyanosis, No edema, Capillary Refill Less than 3 S econds Skin: No rashes, No breakdown Musculoskeletal: - - right knee dressing intact Lymphatic: No Cervical, Supraclavicular, or Inguinal Adenopathy Neurological: Cranial nerves II-XII grossly intact, Neuro grossly intact, Motor Exam 5/5 strength throughout Psych/Mental Status: Normal Affect, Appropriate, Alert and oriented to time, place, person, mood and affect Microbiology Past 72 Hours 12/16/19 12:44 Tissue - Knee Gram Stain - Final 12/16/19 12:44 Tissue - Knee Wound Culture - Preliminary No growth-Final to follow 12/16/19 13:00 Tissue - Knee Gram Stain - Final 12/16/19 13:00 Tissue - Knee Wound Culture - Preliminary No growth-Final to follow 12/16/19 12:48 Tissue - Knee Gram Stain - Final 12/16/19 12:48 Tissue - Knee Wound Culture - Preliminary No growth-Final to follow Laboratory Results 12/18/19 11:25: D-Dimer Quant (PE/DVT) 1.73 H* 12/18/19 14:10: POC Glucose 192 H 12/19/19 06:28: WBC 9.2, RBC 3.80 L, Hgb 10.9 L, Hct 33.3 L, MCV 87.6, MCH 28.7, MCHC 32.7, RDW Std Deviation 44.2 H, RDW Coeff of Arjun 13.8, Plt Count 223, MPV 9.6 12/19/19 08:11: POC Glucose 188 H Current Medications Acetaminophen (Tylenol) 1,000 mg PO Q8 [facility] Last Admin: 12/19/19 06:40 Dose: 1,000 mg Documented by: Doxycycline Monohydrate (Doxycycline) 100 mg PO BID [facility] Last Admin: 12/19/19 08:20 Dose: 100 mg Documented by: Famotidine (Pepcid) 20 mg PO DAILY [facility] Last Admin: 12/19/19 08:22 Dose: 20 mg Documented by: Fluoxetine HCl (Prozac) 20 mg PO DAILY [facility] Last Admin: 12/19/19 08:22 Dose: 20 mg Documented by: Sodium Chloride () 250 mls @ 15 mls/hr IV .[id number] PRN PRN Reason: Saline Flush Insulin Human Lispro (Humalog Kwikpen (Bkc)) 5 unit SC 0800,1200,1700 [facility] Last Admin: 12/19/19 08:19 Dose: 5 u Documented by: Meloxicam (Mobic) 7.5 mg PO BID [facility] Last Admin: 12/19/19 08:22 Dose: 7.5 mg Documented by: [facility] Admin: 12/19/19 08:18 Dose: 1,000 mg Documented by: Metoprolol Tartrate (Lopressor (Beta Ariadna)) 25 mg PO BID [facility] Montelukast Sodium (Singulair) 10 mg PO DAILY@1700 [facility] Last Admin: 12/18/19 18:14 Dose: 10 mg Documented by: Morphine Sulfate (Ms Contin) 15 mg PO BID [facility] Last Admin: 12/18/19 22:02 Dose: 15 mg Documented by: Nicotine (Nicoderm Cq (Pbkc)) 21 mg TRANSDERM. DAILY [facility] Last Admin: 12/19/19 08:22 Dose: 21 mg Documented by: Nutritional Formula (Lactose Free) (Glucerna Shake) 120 ml PO TIDCM [facility] Last Admin: 12/19/19 08:09 Dose: 120 ml Documented by: Ondansetron HCl (Zofran) 4 mg IV Q8H PRN PRN PRN Reason: NAUSEA Oxycodone HCl (Oxyir) 5 - 10 mg PO Q4H PRN PRN PRN Reason: Pain Score 4-10/10 Last Admin: 12/19/19 06:41 Dose: 10 mg Documented by: Pravastatin Sodium (Pravachol) 40 mg PO QHS [facility] Last Admin: 12/18/19 22:00 Dose: 40 mg Documented by: Promethazine HCl (Phenergan) 12.5 mg IM Q6H PRN PRN; Protocol PRN Reason: NAUSEA/VOMITING Rivaroxaban (Xarelto) 15 mg PO BIDCM [facility] Last Admin: 12/19/19 08:20 Dose: 15 mg Documented by: Senna/Docusate Sodium (Senokot-S, Neda-Colace) 2 tablet PO BID [facility] Last Admin: 12/19/19 08:22 Dose: 2 tablet Documented by: Sodium Chloride () 10 - 40 ml IV UD PRN PRN Reason: SALINE FLUSH Last Admin: 12/17/19 14:39 Dose: 10 ml Documented by: Venlafaxine HCl (Effexor Xr) 37.5 mg PO DAILY [facility] Last Admin: 12/19/19 08:22 Dose: 37.5 mg Documented by: STROKE Vital Signs/Narrative: Vital Signs Temp Pulse Resp BP Pulse Ox 12/19/19 07:46 97.5 F L 107 H 18 112/66 96 Medical Necessity - Tobacco Use Smoking Status: Current every day smoker Tobacco Use: Cigarettes, - Assessment/Plan 1. Left total knee revision * today is POD 3 * pain is well controlled * on MS contin and oxycodone, per orthopedics * management as per orthopedics * incentive spirometer * PT/OT on board * 2. Bilateral PE, likely provoked * Patient kept having persistent sinus tachycardia. D-dimer check was elevated which was to be expected in light of him recently having had surgery. * CTA done was positive for bilateral PE in the branches of the right upper and right lower lobe pulmonary artery branches and in the left upper lobe pulmonary arteries. * Patient currently on Xarelto treatment dose for PE. * PE was likely provoked by surgery and he does have a history of provoked PE after surgery. * 3. Sinus tachycardia * Patient still remains tachycardic. Heart rate was 107 this morning. * . Lisinopril and start patient on metoprolol 25 mg twice daily to help with blood pressure control and also tachycardia. * 3. Type 2 diabetes mellitus: On metformin and insulin glulisine 5 units 3 times daily with meals. Accu-Cheks AC at bedtime. 4. Hypertension: Blood pressure well controlled. We will switch lisinopril to metoprolol on account of sinus tachycardia. 5. Hyperlipidemia: On statin. 6. Anxiety and depression: On Effexor and Prozac. DVT Prophylaxis: now on therapeutic anticoagulation o/a of PE Disposition: Stable for DC home today from hospitalist standpoint. Code Visit Inpatient E&M: 08544 Subs Hosp L2
[2019-12-19 10:37] VITALS: BP 112/66; PULSE 107
[2019-12-19] MEDS: Metoprolol Tartrate 25 MG Tablet PO (10:37)
[2019-12-19] MEDS: morphine SR 15 MG Tablet PO (10:37)
--- NOTE | 2019-12-19 12:04 | PCM.PN.ORT ---
Subjective: The patient was sitting in bed with present upon examination. Patient denies any chest pain, shortness of breath, dizziness, lightheadedness, nausea or vomiting, or calf pain. Pain is controlled on medications. No adverse overnight events. Patient had a CTA yesterday due to continued high blood pressure and tachycardia which did reveal bilateral pulmonary emboli. Patient Xarelto was adjusted by the hospitalist. The hospitalist is also adjusting blood pressure medications and was instructed to stop the lisinopril and start metoprolol for the sinus tachycardia. Patient overall is doing well today. Has outpatient physical therapy scheduled for Saturday. - Physical Exam Vitals/I&O's: Vital Signs Temp Pulse Resp BP Pulse Ox 97.5 F L 107 H 18 112/66 96 12/19/19 07:46 12/19/19 10:37 12/19/19 07:46 12/19/19 10:37 12/19/19 07:46 Oxygen Flow Rate (L/min) 2 Oxygen Delivery Method Room Air Weight: 101 kg Body Mass Index (BMI) 31.0 Finger Stick Blood Glucose 173 Intake and Output for Last 24 Hours 12/17/19 12/18/19 12/19/19 23:59 23:59 23:59 Intake Total 4294.40 / 4294.40 Balance 4294.40 / 4294.40 General: Alert, Oriented x3, Cooperative, No apparent distress Microbiology Past 72 Hours 12/16/19 12:44 Tissue - Knee Gram Stain - Final 12/16/19 12:44 Tissue - Knee Wound Culture - Preliminary No growth-Final to follow 12/16/19 13:00 Tissue - Knee Gram Stain - Final 12/16/19 13:00 Tissue - Knee Wound Culture - Preliminary No growth-Final to follow 12/16/19 12:48 Tissue - Knee Gram Stain - Final 12/16/19 12:48 Tissue - Knee Wound Culture - Preliminary No growth-Final to follow Laboratory Results 12/18/19 14:10: POC Glucose 192 H 12/19/19 06:28: WBC 9.2, RBC 3.80 L, Hgb 10.9 L, Hct 33.3 L, MCV 87.6, MCH 28.7, MCHC 32.7, RDW Std Deviation 44.2 H, RDW Coeff of Arjun 13.8, Plt Count 223, MPV 9.6 12/19/19 08:11: POC Glucose 188 H Current Medications Acetaminophen (Tylenol) 1,000 mg PO Q8 [facility] Last Admin: 12/19/19 06:40 Dose: 1,000 mg Documented by: Doxycycline Monohydrate (Doxycycline) 100 mg PO BID [facility] Last Admin: 12/19/19 08:20 Dose: 100 mg Documented by: Famotidine (Pepcid) 20 mg PO DAILY [facility] Last Admin: 12/19/19 08:22 Dose: 20 mg Documented by: Fluoxetine HCl (Prozac) 20 mg PO DAILY [facility] Last Admin: 12/19/19 08:22 Dose: 20 mg Documented by: Sodium Chloride () 250 mls @ 15 mls/hr IV .[id number] PRN PRN Reason: Saline Flush Insulin Human Lispro (Humalog Kwikpen (Bkc)) 5 unit SC 0800,1200,1700 [facility] Last Admin: 12/19/19 08:19 Dose: 5 u Documented by: Meloxicam (Mobic) 7.5 mg PO BID [facility] Last Admin: 12/19/19 08:22 Dose: 7.5 mg Documented by: Metformin HCl (Glucophage) 1,000 mg PO BIDCM [facility] Last Admin: 12/19/19 08:18 Dose: 1,000 mg Documented by: Metoprolol Tartrate (Lopressor (Beta Ariadna)) 25 mg PO BID [facility] Last Admin: 12/19/19 10:37 Dose: 25 mg Documented by: Montelukast Sodium (Singulair) 10 mg PO DAILY@1700 [facility] Last Admin: 12/18/19 18:14 Dose: 10 mg Documented by: Morphine Sulfate (Ms Contin) 15 mg PO BID [facility] Last Admin: 12/19/19 10:37 Dose: 15 mg Documented by: Nicotine (Nicoderm Cq (Pbkc)) 21 mg TRANSDERM. DAILY [facility] Last Admin: 12/19/19 08:22 Dose: 21 mg Documented by: Nutritional Formula (Lactose Free) (Glucerna Shake) 120 ml PO TIDCM [facility] Last Admin: 12/19/19 08:09 Dose: 120 ml Documented by: Ondansetron HCl (Zofran) 4 mg IV Q8H PRN PRN PRN Reason: NAUSEA Oxycodone HCl (Oxyir) 5 - 10 mg PO Q4H PRN PRN PRN Reason: Pain Score 4-10/10 Last Admin: 12/19/19 10:37 Dose: 10 mg Documented by: Pravastatin Sodium (Pravachol) 40 mg PO QHS [facility] Last Admin: 12/18/19 22:00 Dose: 40 mg Documented by: Promethazine HCl (Phenergan) 12.5 mg IM Q6H PRN PRN; Protocol PRN Reason: NAUSEA/VOMITING [facility] Admin: 12/19/19 08:20 Dose: 15 mg Documented by: Senna/Docusate Sodium (Senokot-S, Neda-Colace) 2 tablet PO BID [facility] Last Admin: 12/19/19 08:22 Dose: 2 tablet Documented by: Sodium Chloride () 10 - 40 ml IV UD PRN PRN Reason: SALINE FLUSH Last Admin: 12/17/19 14:39 Dose: 10 ml Documented by: Venlafaxine HCl (Effexor Xr) 37.5 mg PO DAILY [facility] Last Admin: 12/19/19 08:22 Dose: 37.5 mg Documented by: Medical Necessity - Tobacco Use Smoking Status: Current every day smoker Tobacco Use: Cigarettes, - Assessment/Plan 1. S/P revision left total knee arthroplasty entire femoral and tibial components as well as patella POD #3 2. Continue Pain Medications: Tylenol, oxycodone, and OxyIR. Patient required MS Contin due to increased pain. Patient has chronic pain management patient. Patient states he has already contacted his pain management doctor Dr. Pruitt. She is already given him a prescription for Percocet 10-325 mg. I explained to the patient that we will only do the MS Contin for an additional 3 days. Prior to getting the medication filled he is to contact the pain management doctor to make sure she is okay with adding this medication postoperatively due to the increased pain. He voiced understanding and will contact her prior to filling the medication. 3. DVT Prophylaxis: Patient was switched to Xarelto 15 mg for the next 3 weeks which will be followed by Xarelto 20 mg. It was found patient had a pulmonary emboli bilaterally. He is now to schedule follow-up with his primary care physician Dr. Monahan for future management. Discussed with the patient that he may have to go on lifetime anticoagulation with this being his second DVT. 4. PT/OT: Weightbearing as tolerated 5. H & H: 10.9/33.3, asymptomatic 6. Reactive leukocytosis: Resolved 7. Nicotine dependence: Patient was given home dose of nicotine patch 21 mg. Patient did bring in his own patches but in order was given for hospital dose to be placed. 8. Encouraged Incentive Spirometry 9. Continue antibiotics while following cultures: Currently on doxycycline 1 week postoperatively. Patient did have 1 of 3 cultures come back positive for gram-positive cocci. Will continue with the doxycycline postoperatively. 10. Bilateral pulmonary embolism: Patient has been started on Xarelto 15 mg. 11. Continue postoperative medical management per medicine: Continue to follow hypertension and mild tachycardia. Hospitalist switched patient's medication from lisinopril to metoprolol due to the sinus tachycardia. Case was discussed with the hospitalist and she has cleared patient for discharge home. 12. Disposition: Plan will be for discharge home today. Patient has been cleared by medicine. Xarelto has been adjusted for therapeutic dose. Patient will follow-up with PCP for continued treatment of the DVT/pulmonary emboli. Patient will continue with postoperative pain medications as discussed before. He will contact the pain management doctor prior to getting the MS Contin filled. Metoprolol and Xarelto will be called into the primary pharmacy. Patient will follow-up per postop instructions. Outpatient physical therapy will begin on Saturday, December 21, 2019. I have reviewed the [place] Automated Rx Reporting System (OARRS) report for this patient for refill pattern and other prescriber involvement as part of the appropriate surveillance for the provision of acute and chronic controlled medications. The report was requested and reviewed on the date of this entry and was considered in the prescribing process.
--- NOTE | 2019-12-19 12:20 | PCM.DC.SUM ---
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 Subsequently patient had aseptic loosening on radiographs and progressive pain. Patient failed conservative measures. After failing conservative measures, the patient opted to proceed with a revision left total knee replacement. The patient underwent the above-stated procedure on December 16, 2019. Patient did receive perioperative antibiotics. Intraoperatively was uneventful. For details please see dictated operative note. The patient was placed in thigh-high teds, bilateral SCDs, remained stable in recovery. Patient was admitted to the 3rd floor at [facility]. Patient's pain medications needed to be adjusted in which MS Contin was added and alongside extra strength Tylenol and oxycodone. Patient has long history of chronic pain management in the past. Patient also continued to have hypertension with tachycardia. Postoperative day 2 CTA of the chest was ordered which did reveal bilateral pulmonary emboli. Patient was then switched over to therapeutic dose of Xarelto 15 mg. Hospitalist recommends 3-week treatment of Xarelto at 15 mg followed by Xarelto 20 mg thereafter. Patient will follow-up with the primary care physician Dr. Monahan for continued management. Hospitalist also switched patient's blood pressure medication from lisinopril to metoprolol to help with tachycardia. Patient participated in physical therapy. Patient was discharged on postoperative day #3 to home. Patient was given medications stated below. Patient will follow up with [facility] per postop instructions for reassessment. - Physical Exam Vitals/I&O's: Vital Signs Temp Pulse Resp BP Pulse Ox 97.5 F L 107 H 18 112/66 96 12/19/19 07:46 12/19/19 10:37 12/19/19 07:46 12/19/19 10:37 12/19/19 07:46 Oxygen Flow Rate (L/min) 2 Oxygen Delivery Method Room Air Weight: 101 kg Body Mass Index (BMI) 31.0 Finger Stick Blood Glucose 173 Intake and Output for Last 24 Hours 12/17/19 12/18/19 12/19/19 23:59 23:59 23:59 Intake Total 4294.40 / 4294.40 Balance 4294.40 / 4294.40 Microbiology Past 72 Hours 12/16/19 12:44 Tissue - Knee Gram Stain - Final 12/16/19 12:44 Tissue - Knee Wound Culture - Preliminary No growth-Final to follow 12/16/19 13:00 Tissue - Knee Gram Stain - Final 12/16/19 13:00 Tissue - Knee Wound Culture - Preliminary No growth-Final to follow 12/16/19 12:48 Tissue - Knee Gram Stain - Final 12/16/19 12:48 Tissue - Knee Wound Culture - Preliminary No growth-Final to follow Laboratory Results 12/18/19 14:10: POC Glucose 192 H 12/19/19 06:28: WBC 9.2, RBC 3.80 L, Hgb 10.9 L, Hct 33.3 L, MCV 87.6, MCH 28.7, MCHC 32.7, RDW Std Deviation 44.2 H, RDW Coeff of Arjun 13.8, Plt Count 223, MPV 9.6 12/19/19 08:11: POC Glucose 188 H Current Medications Acetaminophen (Tylenol) 1,000 mg PO Q8 [facility] Last Admin: 12/19/19 06:40 Dose: 1,000 mg Documented by: Doxycycline Monohydrate (Doxycycline) 100 mg PO BID [facility] Last Admin: 12/19/19 08:20 Dose: 100 mg Documented by: Famotidine (Pepcid) 20 mg PO DAILY [facility] Last Admin: 12/19/19 08:22 Dose: 20 mg Documented by: Fluoxetine HCl (Prozac) 20 mg PO DAILY [facility] Last Admin: 12/19/19 08:22 Dose: 20 mg Documented by: Sodium Chloride () 250 mls @ 15 mls/hr IV .[id number] PRN PRN Reason: Saline Flush Insulin Human Lispro (Humalog Kwikpen (Bkc)) 5 unit SC 0800,1200,1700 [facility] Last Admin: 12/19/19 12:17 Dose: 5 u Documented by: Meloxicam (Mobic) 7.5 mg PO BID [facility] Last Admin: 12/19/19 08:22 Dose: 7.5 mg Documented by: Metformin [facility] ([facility]ophage) [facility] Last Admin: 12/19/19 08:18 Dose: 1,000 mg Documented by: Metoprolol Tartrate (Lopressor (Beta Ariadna)) 25 mg PO BID [facility] Last Admin: 12/19/19 10:37 Dose: 25 mg Documented by: Montelukast Sodium (Singulair) 10 mg PO DAILY@1700 [facility] Last Admin: 12/18/19 18:14 Dose: 10 mg Documented by: Morphine Sulfate (Ms Contin) 15 mg PO BID [facility] Last Admin: 12/19/19 10:37 Dose: 15 mg Documented by: Nicotine (Nicoderm Cq (Pbkc)) 21 mg TRANSDERM. DAILY [facility] Last Admin: 12/19/19 08:22 Dose: 21 mg Documented by: Nutritional Formula (Lactose Free) (Glucerna Shake) 120 ml PO TIDCM [facility] Last Admin: 12/19/19 08:09 Dose: 120 ml Documented by: Ondansetron HCl (Zofran) 4 mg IV Q8H PRN PRN PRN Reason: NAUSEA Oxycodone HCl (Oxyir) 5 - 10 mg PO Q4H PRN PRN PRN Reason: Pain Score 4-10/10 Last Admin: 12/19/19 10:37 Dose: 10 mg Documented by: Pravastatin Sodium (Pravachol) 40 mg PO QHS [facility] Last Admin: 12/18/19 22:00 Dose: 40 mg Documented by: Promethazine HCl (Phenergan) 12.5 mg IM Q6H PRN PRN; Protocol PRN Reason: NAUSEA/VOMITING Rivaroxaban ([facility]arelto) [facility] Last Admin: 12/19/19 08:20 Dose: 15 mg Documented by: Senna/Docusate Sodium (Senokot-S, Neda-Colace) 2 tablet PO BID [facility] Last Admin: 12/19/19 08:22 Dose: 2 tablet Documented by: Sodium Chloride () 10 - 40 ml IV UD PRN PRN Reason: SALINE FLUSH Last Admin: 12/17/19 14:39 Dose: 10 ml Documented by: Venlafaxine HCl (Effexor Xr) 37.5 mg PO DAILY [facility] Last Admin: 12/19/19 08:22 Dose: 37.5 mg Documented by: Discharge Diet: 1800 Calorie Control Diet Discharge Activity: May Not Drive May shower in (days): 0 - Turn dressing away from water. Dressing must be intact to skin Ice area for (Minutes): 20 - Every 1-2 hours while awake Weight Bearing Status: Weight bearing as tolerated Keep extremity elevated above heart level: Operative Extremity Additional Activity Instructions:: Wear elastic stockings for 2 weeks after your surgery. Call your doctor if your incision/area has: Continuous Slow Oozing, Sudden Increased Bleeding, Increased Pain/ Swelling, Increased Redness, Foul Smelling Discharge Call your doctor if you observe: Fever of 101 or Higher, Coldness, Increased Pain, Numbness or Tingling, Change in Color, Calf discomfort, Uncontrolled pain Remove Dressing in (days):: 2 - Okay to remove dressing on December 21, 2019 Home Medications: Medications to take at Discharge Pravastatin [Pravachol] 40 mg PO QHS 01/17/16 metFORMIN HCl [Glucophage] 1,000 mg PO BIDCM 01/17/16 Desvenlafaxine Succinate [Pristiq] 50 mg PO DAILY 11/25/19 Fluoxetine HCl [Prozac] 20 mg PO DAILY 11/25/19 Insulin Glulisine [Apidra] 5 unit SQ TIDCM 11/25/19 Nicotine [Nicotine Patch] 1 ea TD DAILY 11/25/19 Doxycycline 100 mg PO BID 40 Days #80 cap 12/18/19 Montelukast [Singulair] 10 mg PO DAILY@1700 90 Days #90 tab 12/18/19 Senna/Docusate Sodium [Senokot-S] 2 tab PO BID #10 tab 12/18/19 morphine SR tablet [Ms Contin] 15 mg PO BID 3 Days #6 tab 12/18/19 Insulin Glargine [Lantus SoloStar Pen] 22 units SUBCUT QHS 12/19/19 Metoprolol Tartrate [Lopressor (beta ariadna)] 25 mg PO BID #42 tab 12/19/19 Rivaroxaban [Xarelto] 15 mg PO BIDCM #42 tab 12/19/19 Following Prescrptions Were Given to Patient: Doxycycline 100 mg PO BID 40 Days #80 cap Transmission Status: Received by [facility] Metoprolol Tartrate [Lopressor (beta ariadna)] 25 mg PO BID #42 tab Transmission Status: Pending to [facility] morphine SR tablet [Ms Contin] 15 mg PO BID 3 Days #6 tab Prescription Printed Senna/Docusate Sodium [Senokot-S] 2 tab PO BID #10 tab Transmission Status: Received by [facility] Montelukast [Singulair] 10 mg PO DAILY@1700 90 Days #90 tab Transmission Status: Received by [facility] Rivaroxaban [Xarelto] 15 mg PO BIDCM #42 tab Transmission Status: Pending to [facility] Primary Care Physician: Mason Monahan III, MD [Primary Care Provider] - Please follow up with your Primary Care Physician in: Follow-up 1 week with PCP due to pulmonary emboli Please Follow Up With: [facility] When: 12/21/19 @ 8:00 am with Zohreh Please Follow Up With: Troy Adam PA-C When: 12/30/19 @ 9:15 am Additional Instructions: Follow orthopedic postop instructions Contact pain management doctor prior to filling the MS Contin. Continue with the Percocet that was prescribed by pain management Dr. Pruitt. Continue with antibiotics for 6 weeks postoperatively. DVT treatment: Hospitalist placed patient on Xarelto 15 mg twice daily for 3 weeks which will then be transitioned to 20 mg after that. Patient is to follow-up with his primary care physician for continued treatment of the bilateral pulmonary emboli. This is his second DVT following surgery. Blood pressure medications: Hospitalist also switched patient to metoprolol due to the tachycardia. Patient will continue with the metoprolol and stop the lisinopril. After following up with his PCP they can continue to adjust and treat his hypertensive medications. Medical Necessity - Tobacco Use Smoking Status: Current every day smoker Tobacco Use: Cigarettes, - Meaningful Use Info Meaningful Use Diagnoses (Choose all that apply): None applicable
[2019-12-19 13:10] VITALS: BP 112/66; PULSE 107; RESP 18; TEMP 36.4; O2SAT 96
[2019-12-20 00:31] LABS: Bedside Glucose 199 mg/dL (70-110)
== END 2019-12-19 13:10 | disposition home or self-care (01) | DRG 468 ==
LOC: ACINP 09:54 → MS3 12-17 07:22
PROVIDERS: Student in an Organized Health Care Education/Training Program; Admitting Provider Specialist; Family Provider Family Medicine; PCP Family Medicine; Referring Provider Specialist; Visit Provider Specialist
PROC: 0SPD0JZ Removal of Synthetic Substitute from Left Knee Joint, Open Approach (ICD-10-PCS; principal; 2019-12-16 11:50)
DX: T84.84XA Pain due to internal orthopedic prosthetic devices, implants and grafts, initial encounter (principal); I26.99 Other pulmonary embolism without acute cor pulmonale; T84.033A Mechanical loosening of internal left knee prosthetic joint, initial encounter; F32.9 Major depressive disorder, single episode, unspecified; E11.9 Type 2 diabetes mellitus without complications; Z86.718 Personal history of other venous thrombosis and embolism; F17.210 Nicotine dependence, cigarettes, uncomplicated; Z79.891 Long term (current) use of opiate analgesic; Z79.4 Long term (current) use of insulin; Z79.899 Other long term (current) drug therapy; E78.5 Hyperlipidemia, unspecified; D72.828 Other elevated white blood cell count; I10 Essential (primary) hypertension; F41.9 Anxiety disorder, unspecified; R00.0 Tachycardia, unspecified
CPT/HCPCS: 36415; 71275; 73560; 80048; 82962; 84443; 85025; 85027; 85379; 87015; 87070; 87075; 87081; 87102; 87116; 87205; 87206; 97110; 97116; 97161; 97166; 97530; 97535; 99251; C1776; J7120; Q9967; A4216; G0463; J2405; J3490

== ENCOUNTER → 2020-08-11 | Outpatient (CLI) | payer OTHER, SELFPAY ==
[2020-07-29 11:11] VITALS: BMI 30.1
--- NOTE | 2020-08-11 15:42 | PFTCOMP ---
COMPLETE PULMONARY FUNCTION TEST INTERPRETATION Brief HPI: Patient is a 55 year old male, currently under the care of myself, who presents to [facility] for complete pulmonary function tests secondary to diagnosis of bilateral PE. Respiratory therapist reports good effort and reproducible results. Interpretation: Forced expiration spirometry shows a severe large airways obstructive ventilatory defect with an FEV1 of 43% predicted. There is no significant bronchodilator response by strict ATS criteria. Spirograms are of good quality and plateau slowly, indicating slowly emptying areas of the lungs. The respiratory flow volume loop shows decreased expiratory flow rates at all lung volumes consistent with airway obstruction. Lung volumes by body plethysmography show an elevated total lung capacity at 8.51 L, 121% predicted. FRC and RV are elevated out of proportion. Lung volume measurements are consistent with hyperinflation and air-trapping. Diffusion capacity by carbon monoxide is normal at 88% predicted. The airway resistance is elevated. No previous pulmonary function tests were available for review. Impression: Irreversible severe large airways obstructive ventilatory defect resulting in air trapping with hyperinflation
== END | disposition home or self-care (01) ==
LOC: PSN 07:55
PROVIDERS: PCP Family Medicine; Referring Provider Internal Medicine Critical Care Medicine; Visit Provider Internal Medicine Critical Care Medicine
DX: T84.81XA Embolism due to internal orthopedic prosthetic devices, implants and grafts, initial encounter (principal)
CPT/HCPCS: 94060; 94726; 94729

== ENCOUNTER 2021-02-10 08:00 | Outpatient (RCR) | payer OTHER, SELFPAY ==
[2020-07-29 11:11] VITALS: BMI 30.1
--- NOTE | 2021-01-06 08:55 | HP.PTEVAL ---
Patient's Visit Information MIKI COLMENARES is a 55 year old M referred to Physical Therapy by Dr. Sung Navarrete MD with a diagnosis of Knee sprains, meniscal tear, chondromalacia. Date of Evaluation: 01/06/21 Physical Therapist: Mike Sims, DPT, OCS, CSCS - Visit Plan Frequency: 3-5x/week Duration: 4-6 Weeks Plan: 3-5x/week x 4-6 weeks for work conditioning [id number] at least two hours each for... quad, LE, postural and general strength adn CV strength program withotu increasing knee pain. L knee ROM. quad stretching. 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 Scheduled 3x/week to start but may increase per tolerance to 4-5x week as January approaches. - Subjective Havent worked in 10 years due to 13 knee surgeries adn 4 knee replacements. They keep coming loose. Has 3 TKA in left adn partial in R. Last surgery was one year ago in L knee and needed janny taken out in tibia. Had pulmonary empbolism at the time. L knee feeling good. Much atrophy in quad. Weak. R quad is atrophy and more painful. SORe daily most of time when doing something. Sitting is 4/10 and steps are 7/10. Can walk it off quickly. Sleep is interrupted as has a hard time getting comfortable on right knee. Legs very tired adn hurt, not a sharp pain. Feels like legs weigh 100# each. 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 Does some leg lifts at home for exercise. Basic ADLs getting done at home with minimal problems. Biggest thing is wakness in legs and steps which are painful in the right knee and squatting to get up off floor. Can't bend knees to pick stuff off the ground. Looking to go back to work but they will find him a dofferent vocation after he goes through work conditioning. Has standing one hour day restriction for work. 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 - Pain R knee Pain Intensity (Out of 10): 4 Pain Intensity Range: 0, 7 - Objective Walks I without obvious gait deficits today. Trasnfers without UE I bed and chair. Steps are wisam and some pain on R ascending and worse descending. Hesitant and weak to push body weight up or lower slowly. quads tight B but HS, gastroc, piriformis and ITB are all ok. Hip and ankle aROM WFL adn without pain. 112 L knee flexion. 128 R knee flexion. 0 ext B , no quad lag with SLR B. reflexes 2/3 patella and achilles. Sensation LE WNL to gross light touch. Hard for patient to bend at knees to strip picker box with proper technique due to knee pain and weakness putting extra stress ont he back. Strength knees ext B 4- and flexion 4/5. Hip abd and ext 4- and flexion 4. ankles 4+ B. Many different scars from incisions on L knee. Patella seem to be moving well B. Weakness in quads specifically adn legs generally is main deficit along with quad tightness B. - Balance Scores Functional Gait Assessment Score: 28 % Disability: 6.6700 - Goals Goal 1:: Tolerate 2-3 hours of exercise without increased pain to get to FCE if needed. Goal Time Frame: 4-6 Weeks Goal 2:: Pt feel 75% stronger in LE and ascend and descend steps without hesitation. Goal Time Frame: 4-6 Weeks Goal 3:: squat to strip picker box from floor with good technique without pain Goal Time Frame: 4-6 Weeks Goal 4:: LEFS score of 60/80 Goal Time Frame: 4-6 Weeks - Rehabilitation Potential Physical Therapy Diagnosis: Long history of B knee pain and weakness. Rehabilitation Potential: Fair - Anticipated Interventions Patient/Client Instruction: Educate patient on: Condition, Plan of Care For the Purpose of:: To decrease pain, To increase ROM, To improve muscle performance and motor function Therapeutic Exercise to Include: Strength training, Postural training, Flexibilty training, Gait and locomotor training For the Purpose of:: To decrease pain, To increase ROM, To improve muscle performance and motor function, To increase tolerance to activity/condition/position, To improve ability of physical actions for home/community/work/leisure Thank you for the opportunity to evaluate your patient. For Medicare and Medicare HMO plans, please review the plan of care and approve it. It will need to be FAXED BACK to us at [phone] for Medicare purposes. For Medicare only, by signing this I certify the plan of care. Please let me know if there are questions or concerns regarding this plan of care. Physician Signature: Date:
--- NOTE | 2021-02-10 10:10 | HP.PTDCSUM_ITS ---
It has been my pleasure to treat MIKI COLMENARES referred by Dr. Sung Navarrete MD, with the diagnosis of Knee sprains, meniscal tear, chondromalacia for a total of 13 visit(s). Discharge Date: 02/10/21 Please see the following information for a summary of their discharge status. Subjective: Workout has felt good. 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 Strength in legs is i mproving. Knees can hurt at times. Working hard. Got down on knees yesterday. Pain in knees up to 10. Much better overall. R knee still can be weak on steps. Straightening R knee sometimes clunks. Still get s numbnes sin last three fingers on R UE at times if he puts his hand under his head at night especially or with some of the UE exercises in gym. Started as some pain in upper back and R scapula. 310 intermittently and worse with posture being poor or driving. Has appointment with doctor for middle of February. 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 Plans to continue ex at [facility] adn feels comfortable doing that. R knee Pain Intensity (Out of 10): 5 % Improvement: 50 Objective/Function: Cervical aROM 60 R rotation and 65 L no pain. extension is 50 degrees adn slight R neck pain. - c/s compression test. strength UE symmtericala dn without myotomal problems. Sensation UE WNL to gross light touch today. reflexes bi and tri are 2/3. + Tinel's on R ulnar nerve elbow, tender there also. Consistent with complaints of last 3 digit numbness with elbow bent activities/positions. Pt to have this checked out by doctor in February. Knee ROM is functional. Some clunks on R knee with full extension intermittently but improved pain adn stronger. R knee 4+/5 adn L knee 4 ext. Flexion is 4+ B. Trasnfers are I chair and mat. Steps are slow and functionally wek L descending but safe and steady. Overall made good progress. He says Solid [employer]el Machine Operator says he is now done with work conditioning. He would benefit from continued ex in community gym and may go to his local recreation center to continue. Goal 1:: Tolerate 2-3 hours of exercise without increased pain to get to [facility] if needed. Goal Progress: Goal Met, LE Goal 2:: Pt feel 75% stronger in LE and ascend and descend steps without hesitation. Goal Progress: 50% Goal 3:: squat to grain picker box from floor with good technique without pain Goal Progress: Goal Met Goal 4:: LEFS score of 60/80 Goal Progress: improving. Plan: d/c. Discharge Comments: Pt says he is done with work conditioning according to candle molder machine jadielcih is consistent with approval timing. He would benefit from continuing wrokout in community gym and seems willing. If there are questions or concerns regarding this patient's physical therapy, please feel free to call me at [phone]. Thank you for the referral of this patient. Sincerely, Mike Sims, DPT, OCS, CSCS
== END 2021-02-10 19:00 | disposition home or self-care (01) ==
LOC: PT 08:00
PROVIDERS: PCP Family Medicine; Referring Provider Specialist; Visit Provider Specialist
DX: S83.242D Other tear of medial meniscus, current injury, left knee, subsequent encounter (principal); S83.92XD Sprain of unspecified site of left knee, subsequent encounter; M94.262 Chondromalacia, left knee; M23.42 Loose body in knee, left knee; M17.12 Unilateral primary osteoarthritis, left knee; M65.862 Other synovitis and tenosynovitis, left lower leg; S83.282D Other tear of lateral meniscus, current injury, left knee, subsequent encounter
CPT/HCPCS: 97162

== ENCOUNTER 2022-02-14 13:40 | Outpatient (CLI) | payer OTHER, SELFPAY ==
--- NOTE | 2022-02-14 15:11 | NEURO ---
NCS and/or EMG Patient Report Ordering Doctor: Yehuda Live DATE OF SERVICE: 02/14/22 Yehuda presents for electrodiagnostic testing of the right upper limb. Reports numbness and tingling in the first 4 digits of the right hand. Electrodiagnostic findings: Right median motor nerve demonstrates prolonged distal latency with reduced amplitude and reduced conduction velocity. Normal right ulnar motor response. Absent right median sensory latency at the wrist and palm. Borderline prolonged right ulnar sensory latency. On needle EMG, all muscles tested in the right upper limb, as well as right cervical paraspinals showed no evidence of denervation with normal motor unit action potentials. Electrodiagnostic impression: This is an abnormal study in the right upper limb. 1. Electrodiagnostic findings demonstrate right-sided median mononeuropathy. This is consistent with a moderate right carpal tunnel syndrome.
== END 2022-02-14 23:59 | disposition home or self-care (01) ==
PROVIDERS: PCP Family Medicine; Referring Provider Orthopaedic Surgery; Visit Provider Orthopaedic Surgery
DX: M47.22 Other spondylosis with radiculopathy, cervical region (principal); R20.2 Paresthesia of skin
CPT/HCPCS: 95886; 95910

== ENCOUNTER 2022-04-24 08:12 | Emergency (ER) | payer OTHER, SELFPAY ==
[2022-04-24 08:13] VITALS: BP 115/77; PULSE 110; RESP 18; TEMP 36.6; O2SAT 98; BMI 21.2
--- NOTE | 2022-04-24 08:41 | CT_ITS ---
STUDY: CT ABDOMEN AND PELVIS WITH CONTRAST REASON FOR EXAM: Male, 56 years old. Abdominal pain and left lower quadrant swelling . Weight loss. -- IV PO Contrast RADIATION DOSAGE (If Supplied By Facility): CTDIvol = ( 7.66 ) mGy, DLP = ( 430.41 ) mGycm TECHNIQUE: Transaxial images were obtained from the dome of the diaphragm to the symphysis pubis with oral contrast. Oral and amp; IV Readi-CAT and amp; 100mL Isovue-300 was administered. Sagittal and coronal images were reconstructed. Individualized dose optimization techniques were used for this CT. COMPARISON: None. FINDINGS: The visualized lung bases are unremarkable. The visualized portions of the heart are within normal limits. Normal liver. Normal gallbladder and extrahepatic biliary system. There are multiple benign calcified granulomata of the spleen. Normal pancreas. Normal bilateral adrenal glands. Normal right kidney. Normal left kidney. Normal visualized stomach. Normal small intestine. Normal colon. The appendix is visualized and appears normal. There is scattered atherosclerotic calcification of the abdominal aorta, without a demonstrated aneurysm. Normal inferior vena cava. Normal retroperitoneum. Normal urinary bladder. There are prostatic calcifications. There is evidence of prior right inguinal hernia repair with a mesh. Normal osseous structures. CT/Abdomen/Pelvis WITH Contrast IMPRESSION: No acute abnormality is seen. Electronically Signed: Luis Pollock MD at 11:00 EDT ,
--- NOTE | 2022-04-24 08:44 | EDS_ITS ---
HPI HPI - GI History of Present Illness Chief Complaint: Abd Pain Detail of Chief Complaint: Abdominal swelling and constipation Informant: patient Narrative Narrative: Patient presents to the emergency department with complaint of swelling to the left lower quadrant of his abdomen that he noticed several days ago. Patient states that he was at [facility] last week and was admitted for 4 days for unexplained weight loss and wasting of his thigh muscles. Patient had been diabetic and came off all his medications because his A1c had normalized and his blood sugars were stable however subsequently was found last week to be again with elevated A1c's and significant signs of diabetes. No etiology for the weight loss was otherwise found. Patient tells me he had scans and evaluations for cancer which all were unremarkable. Patient is on rivaroxaban for history of PEs. Patient also in pain management and does take hydrocodone for pain which she has been on for a long time and no adjustments in his medications of been made. Patient has been taken MiraLAX. Patient is having watery stools but no formed stools. Patient describes pain in his left lower quadrant with bending and certain movements related to the swelling that he noted in that area. Prior similar symptoms: No PFSH PFSH Medical History (Updated 04/24/22 @ 11:[address] Abram Key, DO) Acute venous embolism and thrombosis of deep vessels of distal lower extremity Diabetes mellitus type 2, uncomplicated Family history not obtainable due to adoption Hyperlipidemia Injury of left deep peroneal nerve Migraine variant, intractable Osteoarthritis Proteinuria Pulmonary embolism Home Medications metformin 1,000 mg tablet 1,000 mg PO BIDCM diabetes 01/17/16 [History Last Taken Unknown] pravastatin 40 mg tablet 40 mg PO QHS cholesterol 01/17/16 [History Last Taken Unknown] desvenlafaxine succinate 50 mg tablet,extended release 24 hr 50 mg PO DAILY depression 11/25/19 [History Last Taken Unknown] insulin glulisine U-100 100 unit/mL subcutaneous solution 5 unit SQ TIDCM diabetes 11/25/19 [History Last Taken Unknown] sennosides 8.6 mg-docusate sodium 50 mg tablet 2 tab PO BID #10 tabs 12/18/19 [Rx Last Taken Unknown] insulin glargine 100 unit/mL (3 mL) subcutaneous pen 22 units subcut QHS diabetes 12/19/19 [History Last Taken Unknown] metoprolol tartrate 25 mg tablet 25 mg PO BID #42 tabs 12/19/19 [Rx Last Taken Unknown] fluoxetine 20 mg capsule 40 mg PO DAILY depression 01/06/20 [History Last Taken Unknown] hydrocodone 7.5 mg-acetaminophen 750 mg tablet tab PO 01/06/20 [History Last Taken Unknown] rivaroxaban 20 mg tablet (Xarelto) 20 mg PO DAILY #30 tabs 07/29/20 [Rx Last Taken Unknown] umeclidinium 62.5 mcg-vilanterol 25 mcg/actuation powdr for inhalation (Anoro Ellipta) 1 inh inhalation QDAY #60 ea 02/10/21 [Rx Last Taken Unknown] Allergy/AdvReac Type Severity Reaction Status Date / Time cyclobenzaprine HCl AdvReac anxious Verified 04/24/22 08:15 [From Flexeril] Surgical History (Reviewed 02/10/21 @ 11:15 by Hanna Mason THERAPY ADMINISTRATIVE ASSISTANT, THERAPY ADMINISTRATIVE ASSISTANT-C) H/O hernia repair History of total knee replacement (TKR) Social History (Updated 02/10/21 @ 14:01 by Hanna Mason THERAPY ADMINISTRATIVE ASSISTANT, THERAPY ADMINISTRATIVE ASSISTANT-C) Smoking Status: Current every day smoker tobacco type: cigarettes Tobacco: How many years used: 15 alcohol intake: current alcohol intake frequency: a few times a month ROS ROS ED Review of Systems ROS Unobtainable: other Constitutional Constitutional ED: Reports lethargy; Denies chills, fever(s), sweats or weight loss Eyes Eyes: Denies blurry vision, change in vision or diplopia ENT ENT ED: Denies rhinorrhea or sore throat Cardiovascular Cardiovascular: Reports chest pain and racing heartbeat; Denies orthopnea Respiratory/Chest Respiratory/Chest: Reports dyspnea and dyspnea on exertion; Denies cough, orthopnea or sputum Gastrointestinal Gastrointestinal: Reports abdominal pain and constipation; Denies diarrhea, nausea or vomiting Genitourinary Genitourinary ED: Denies dysuria, hematuria or urinary frequency Musculoskeletal Musculoskeletal: Denies arthralgias, back pain, myalgias or neck pain Integumentary Denies abscess, Abrasions or rash Neurologic Neurologic: Denies headache(s) or weakness Psychiatric Psychiatric: Denies anxiety, depression or suicidal thoughts Endocrine Endocrinology: Denies polydipsia, polyphagia or polyuria Hematologic/Lymphatic Hematologic/Lymphatic: Denies easy bleeding, easy bruising or lymphadenopathy Allergic/Immunologic Allergic/Immunologic ED: Denies mouth swelling, tongue swelling or urticaria EXAM Physical Exam Const Vital Signs: 04/24/22 08:13 04/24/22 10:46 Temperature 97.9 F Temperature Source Temporal Pulse Rate 110 H 94 Respiratory Rate 18 14 Blood Pressure 115/77 113/71 Blood Pressure Mean 89 85 Pulse Ox 98 98 Oxygen Delivery Method Room Air Room Air Positive well nourished and well developed General Appearance ED: well developed and NAD HEENT Reports TM's clear and moist mucous membranes normocephalic and atraumatic; Negative for trauma or tenderness Tympanic Membrane ED: Yes TM's clear Eyes PERRL and EOMs intact bilaterally General Eye ED: Negative for pale conjunctiva or scleral icterus Neck no lymphadenopathy, supple and no JVD General: Negative for tenderness Chest Wall inspection of chest normal and palpation of chest normal Chest: Negative for tenderness Resp normal respiratory effort and clear to auscultation bilaterally Effort and Inspection: Negative for respiratory distress or pain with movement Auscultation: Negative for rhonchi, wheezes or diminished lung sounds Cardio regular rate, regular rhythm, S1 normal heart sound, S2 normal heart sound and no murmurs Peripheral Pulses: pulses 2+ throughout GI normal to inspection, nondistended, normoactive bowel sounds, soft to palpation, non-distended and no masses GI Narrative: Patient does have asymmetry noted to the left abdominal wall with some soft tissue swelling over the left lateral abdominal wall. Area is minimally tender and is not consistent with a hernia. There is no erythema or warmth noted. There is no ecchymosis or bruising noted. There is no rebound, rigidity, or peritoneal signs. Rectal exam was performed and there was no evidence of rectal impaction he had some small amount of brown stool that was soft within the rectal vault. Back/Spine no CVA tenderness and no thoracic nor lumbar tenderness Extremity normal to inspection General Extremety ED: Negative for edema General Extremity: Negative for edema Neuro oriented x3, CN's II-XII intact bilaterally, no sensory deficits noted and gait normal Sensorium / Orientation: awake, alert, oriented to person, oriented to place and oriented to time Motor Exam: strength 5/5 throughout and strength abnormal Psych mental status grossly normal Skin no rashes or lesions noted and no wounds MDM MDM MDM Narrative Medical decision making narrative: IV line established on arrival. Lab work was normal. CT scan with IV and p.o. contrast essentially showed nothing acute. On my interpretation I did note he had significant amount of stool through the right side of the colon and left colon as well. At this point I discussed with patient potentially doing a so apsuds enema versus using magnesium citrate at home. Patient does not want to do the enema and would prefer the magnesium citrate to see if things get get moving more. Patient advised to follow-up with his primary care physician within next 3 to 5 days. He is to return if worsening abdominal pain, fever, vomiting, or condition should worsen anyway. Lab Data Attestation: I reviewed the patient's lab results. Labs: Laboratory Results - last 24 hr 04/24/22 04/24/22 04/24/22 08:30 08:30 08:46 WBC 9.1 RBC 4.91 Hgb 14.6 Hct 44.0 MCV 89.6 MCH 29.7 MCHC 33.2 RDW Std Deviation 46.4 H RDW Coeff of Arjun 14.1 Plt Count 320 MPV 9.6 Immature Gran % (Auto) 0.300 Neut % (Auto) 65.7 Lymph % (Auto) 26.3 Brooke % (Auto) 6.6 Eos % (Auto) 0.8 Baso % (Auto) 0.3 Absolute Neuts (auto) 6.0 Absolute Lymphs (auto) 2.40 Nucleated RBC % 0 Sodium 138 Potassium 4.2 Chloride 103 Carbon Dioxide 30.0 Anion Gap 5 BUN 18 Creatinine 0.78 Estim Creat Clear Calc 102.80 Est GFR (MDRD) Af Amer 132 Est GFR (MDRD) Non-Af 109 BUN/Creatinine Ratio 23.0 H Glucose 150 H Lactic Acid 1.5 Calcium 9.6 Total Bilirubin 0.70 AST 10 L ALT 20 Alkaline Phosphatase 87 Total Protein 6.9 Albumin 3.3 Globulin 3.6 Albumin/Globulin Ratio 0.9 Radiography Diagnostic Testing: Clinical Impression(s) from Imaging Studies Abdomen/Pelvis CT 04/24/22 08:41 IMPRESSION: No acute abnormality is seen. Electronically Signed: Luis Pollock MD at 11:00 EDT , Discharge Plan Triage Chief Complaint: Abd Pain ED Provider: Abram Key Dx/Rx/DC Orders Clinical Impression: Constipation, Abdominal pain Instructions: Abdominal Pain, ED Constipation (Adult) Prescriptions: No Action hydrocodone 7.5 mg-acetaminophen 750 mg tablet 7.5-750 mg tablet PO Xarelto 20 mg tablet 20 mg PO DAILY Qty: 30 11RF Rx Instructions: must administer with evening meal Anoro Ellipta 62.5-25 mcg/actuation blister with device 1 inh INHALATION QDAY Qty: 60 3RF pravastatin 40 MG tablet 40 mg PO QHS Label Comments: TYPE II DIABETES metformin 1,000 MG tablet 1,000 mg PO BIDCM insulin glulisine U-100 100 UNIT/ML solution 5 unit SQ TIDCM desvenlafaxine succinate 50 MG tablet 50 mg PO DAILY sennosides-docusate sodium 1 TABLET tablet 2 tab PO BID Qty: 10 0RF Rx Instructions: Take until first bowel movement, then as needed insulin glargine 100 UNITS/ML insulin pen 22 units subcut QHS metoprolol tartrate 25 MG tablet 25 mg PO BID Qty: 42 0RF fluoxetine 20 mg capsule 40 mg PO DAILY Primary Care Provider: Kale Rodríguez Referrals: Kale Rodríguez DO [Primary Care Provider] - 3-5 Days Disposition Disposition: Home, Self Care
[2022-04-24] MEDS: 0.9% Normal Saline 1,000 ML 125 ML IV (08:50)
[2022-04-24 09:03] LABS: Basophil# 0.03 X10^3/uL; Basophil% 0.3 % (0-1); Eosinophil# 0.07 X10^3/uL; Eosinophils% 0.8 % (0-5); Hemoglobin 14.6 g/dL (13.0-16.5); Lymphocyte % 26.3 % (19-41); Mean Corp Hgb Conc 33.2 g/dL (32-36); Mean Corpuscular Hgb 29.7 pg (27.0-32.0); Mean Corpuscular Volume 89.6 fL (80-94); Mean Platelet Vol. 9.6 fl (6.2-12.0); Monocyte% 6.6 % (0-10); NRBC Flagged by Analyzer 0 % (0-5); Neutrophil % 65.7 % (47-70); Platelet Count 320 K/mm3 (150-450); RBC Distribution Width CV 14.1 % (11.6-14.6); RBC Distribution Width SD 46.4 fl (35.1-43.9); Red Blood Count 4.91 M/mm3 (4.6-6.2); White Blood Count 9.1 K/mm3 (4.4-11.0)
[2022-04-24 09:16] LABS: ALB/GLOB Ratio 0.9 RATIO (0.9-2.4); AST(SGOT) 10 U/L (15-37); Alanine Aminotransfer ALT/SGPT 20 U/L (16-61); Albumin, Serum 3.3 g/dL (3.2-5.0); Alkaline Phosphatase 87 U/L (45-117); Anion Gap 5 (5-15); BUN 18 mg/dL (7-18); Calcium,Total 9.6 mg/dL (8.5-10.1); Chloride 103 mmol/L (98-107); Creatinine, Serum 0.78 mg/dL (0.70-1.30); EST Glomerular Filtration Rate 109 mL/min (>60); Est Glom Filt Rate - Afr Amer 132 mL/min (>60); Globulin 3.6 g/dL (2.2-4.2); Glucose 150 mg/dL (74-106); Potassium 4.2 mmol/L (3.5-5.1); Protein, Total 6.9 g/dL (6.4-8.2); Sodium Level 138 mmol/L (136-145)
[2022-04-24 09:33] LABS: Lactic Acid 1.5 mmol/L (0.4-1.9)
[2022-04-24 10:46] VITALS: BP 113/71; PULSE 94; RESP 14; O2SAT 98
[2022-04-24] MEDS: Magnesium Citrate 300 ML PO (11:39)
== END 2022-04-24 11:45 | disposition home or self-care (01) ==
PROVIDERS: Emergency Provider Emergency Medicine; PCP Family Medicine; Visit Provider Emergency Medicine
DX: K59.00 Constipation, unspecified (principal); E11.9 Type 2 diabetes mellitus without complications; F17.210 Nicotine dependence, cigarettes, uncomplicated; R19.00 Intra-abdominal and pelvic swelling, mass and lump, unspecified site; R10.9 Unspecified abdominal pain; E78.5 Hyperlipidemia, unspecified; Z86.718 Personal history of other venous thrombosis and embolism; Z86.711 Personal history of pulmonary embolism
CPT/HCPCS: 74177; 80053; 83605; 85025; 96360; 96361; 99283; J7030; Q9967; A4216

== ENCOUNTER 2022-05-30 16:01 | Emergency (ER) | payer OTHER, SELFPAY ==
[2022-05-30 16:02] VITALS: BP 75/60; PULSE 125; RESP 16; TEMP 36; O2SAT 98; BMI 21.2
[2022-05-30 16:07] VITALS: BP 105/74; PULSE 118; RESP 18; O2SAT 96
--- NOTE | 2022-05-30 16:21 | EKG12_ITS ---
Test Reason : Blood Pressure : / mmHG Vent. Rate : 091 BPM Atrial Rate : 091 BPM P-R Int : 154 ms QRS Dur : 092 ms QT Int : 330 ms P-R-T Axes : 065 032 058 degrees QTc Int : 405 ms Normal sinus rhythm Normal ECG Confirmed by BRISA MEDEROS, GAYLE ([id number]), dictionary editor MEGAN TITUS ([id number]) on 05/31/2022 1:27:52 PM Referred By: Confirmed By:GAYLE LEDEZMA MD
[2022-05-30] MEDS: 0.9% Normal Saline 1,000 ML 1000 ML IV (16:27)
[2022-05-30 16:35] LABS: Absolute Lymphocyte Count 1.88 X10^3/uL (0.83-4.51); Absolute Neutrophil Count 5.1 X10^3/uL (2.0-7.7); Basophil# 0.02 X10^3/uL; Basophil% 0.3 % (0-1); Eosinophil# 0.02 X10^3/uL; Eosinophils% 0.3 % (0-5); Hematocrit 42.6 % (40-54); Hemoglobin 14.7 g/dL (13.0-16.5); Lymphocyte # 1.88 X10^3/ul (0.83-4.51); Lymphocyte % 24.7 % (19-41); Mean Corp Hgb Conc 34.5 g/dL (32-36); Mean Corpuscular Hgb 29.6 pg (27.0-32.0); Mean Corpuscular Volume 85.9 fL (80-94); Mean Platelet Vol. 9.4 fl (6.2-12.0); Monocyte# 0.58 X10^3/uL; Monocyte% 7.6 % (0-10); NRBC Flagged by Analyzer 0 % (0-5); Neutrophil # 5.08 X10^3/uL (2.7-7.7); Neutrophil % 66.7 % (47-70); Platelet Count 282 K/mm3 (150-450); RBC Distribution Width CV 13.5 % (11.6-14.6); RBC Distribution Width SD 42.4 fl (35.1-43.9); Red Blood Count 4.96 M/mm3 (4.6-6.2); White Blood Count 7.6 K/mm3 (4.4-11.0)
--- NOTE | 2022-05-30 16:38 | EDS_ITS ---
HPI History of Present Illness Chief Complaint: Hypotension Informant: patient Narrative Narrative: Patient is a 56 year old male with histroy of IDDM and chronic pain. Patient has had a 90 pound weight loss over the last year and was actually admitted at [facility] for evaluation of this at the end of March. Patient notes has had decreased appetite and is going through episodes of constipation where then he has to take large amount of laxatives and then he has significant diarrhea for the 24 hours. He has not seen GI. He notes he is not been eating or drinking much over the past few days he is up and feeling well. He is feeling constipated again and feels that there is fullness and ache of the left side of his abdomen. Patient was seen in our ER April 24 for the same fullness and constipation on the left side of his abdomen. He had a CT of his abdomen and pelvis which showed no acute process and was discharged home with MiraLAX. Patient initially went to urgent care today because he has been feeling lightheaded and dizzy for couple days and is having tingling sensation over his abdomen. Urgent care found him to be hypotensive and sent him to the emergency room for further evaluation. Patient has no acute complaints at this time [facility] Medical History (Updated 05/30/22 @ 20:[address] Gilda Smion, DO) Acute venous embolism and thrombosis of deep vessels of distal lower extremity Diabetes mellitus type 2, uncomplicated Family history not obtainable due to adoption Hyperlipidemia Injury of left deep peroneal nerve Migraine variant, intractable Osteoarthritis Proteinuria Pulmonary embolism Home Medications insulin glargine 100 unit/mL (3 mL) subcutaneous pen 22 units subcut QHS d iabetes 12/19/19 [History Last Taken Unknown] umeclidinium 62.5 mcg-vilanterol 25 mcg/actuation powdr for inhalation (Anoro Ellipta) 1 inh inhalation QDAY #60 ea 02/10/21 [Rx Last Taken Unknown] gabapentin 300 mg capsule 300 mg PO QHS 05/30/22 [History Last Taken Unknown] insulin lispro 100 unit/mL subcutaneous solution (Humalog U-100 Insulin) 10 unit subcut TID 05/30/22 [History Last Taken Unknown] lactulose 10 gram/15 mL oral solution (Enulose) 15 ml PO DAILY #237 mL 05/30/22 [Rx Last Taken Unknown] metoclopramide HCl 5 mg tablet (Reglan) 5 mg PO Q8 #30 tabs 05/30/22 [Rx Last Taken Unknown] oxycodone-acetaminophen 10 mg-325 mg tablet 1 tab PO Q6H PRN Pain 05/30/22 [History Last Taken Unknown] Allergy/AdvReac Type Severity Reaction Status Date / Time cyclobenzaprine HCl AdvReac anxious Verified 04/24/22 08:15 [From Flexeril] Surgical History H/O hernia repair History of total knee replacement (TKR) Social History (Updated 02/10/21 @ 14:01 by Hanna Mason APPLICATION SUPPORT CONSULTANT, APPLICATION SUPPORT CONSULTANT-C) Smoking Status: Current every day smoker tobacco type: cigarettes Tobacco: How many years used: 15 alcohol intake: current alcohol intake frequency: a few times a month ROS ROS ED Constitutional Constitutional ED: Reports weight loss; Denies chills or fever(s) Eyes Eyes: Denies change in vision ENT ENT ED: Denies rhinorrhea or sore throat Cardiovascular Cardiovascular: Denies chest pain or palpitations Respiratory/Chest Respiratory/Chest: Denies cough Gastrointestinal Gastrointestinal: Reports abdominal pain and constipation; Denies diarrhea, nausea or vomiting Genitourinary Genitourinary ED: Denies dysuria, hematuria or urinary frequency Musculoskeletal Musculoskeletal: Reports back pain; Denies arthralgias or myalgias Integumentary Denies rash Neurologic Neurologic: Denies headache(s) or weakness Psychiatric Psychiatric: Denies anxiety EXAM Physical Exam Const Vital Signs: 05/30/22 16:02 05/30/22 16:07 05/30/22 18:18 Temperature 96.8 F L Temperature Source Temporal Pulse Rate 125 H 118 H 87 Respiratory Rate 16 18 13 Blood Pressure 75/60 L 105/74 156/97 H Blood Pressure Mean 65 84 116 Pulse Ox 98 96 98 Oxygen Delivery Method Room Air Room Air Room Air Positive well developed Constitutional Narrative: Thin General Appearance ED: well developed and NAD HEENT Reports dry mucous membranes Negative for trauma Mouth ED: Yes dry mucous membranes Mouth: dry mucous membranes Eyes PERRL and EOMs intact bilaterally Neck supple and no JVD Chest Wall inspection of chest normal Resp normal respiratory effort and clear to auscultation bilaterally Cardio regular rate, regular rhythm and no murmurs GI normal to inspection, nondistended, normoactive bowel sounds, non-tender, non- distended and no masses Back/Spine no CVA tenderness Extremity normal to inspection General Extremety ED: Negative for edema or tenderness General Extremity: Negative for edema Neuro oriented x3 and no sensory deficits noted Motor Exam: strength 5/5 throughout Psych mental status grossly normal Skin no rashes or lesions noted and no wounds General Skin Exam: Negative for jaundice MDM MDM MDM Narrative Medical decision making narrative: Patient is evaluated for low blood pressure. He has had issues with constipation and sounds like he has been abusing laxatives. Additionally he is hypotensive in the emergency room and is given a liter of IV fluids. He has no further hypotension and states he feels much better. Work-up is largely negative. His CBC, CMP, troponin and lactate are normal. He does not have findings consistent with shock. He is hyperglycemic with a glucose of 242 however he has a normal anion gap. Urinalysis does show 5 ketones so is possible he is mildly dehydrated. Patient's abdominal discomfort and constipation is chronic. He is already had a CT of this which did not show any acute process. I do not think this needs to be repeated. I do question if he has gastroparesis especially given his history of diabetes mellitus. Will be started on Reglan as well as lactulose to help with his constipation. Is given referral for GI. Is counseled to follow-up with his primary care doctor as well. Patient verbalizes agreement understand this plan. Discharged home in stable and improved condition. Lab Data Attestation: I reviewed the patient's lab results. Labs: Laboratory Results - last 24 hr 05/30/22 05/30/22 05/30/22 16:20 16:20 16:20 WBC 7.6 RBC 4.96 Hgb 14.7 Hct 42.6 MCV 85.9 MCH 29.6 MCHC 34.5 RDW Std Deviation 42.4 RDW Coeff of Arjun 13.5 Plt Count 282 MPV 9.4 Immature Gran % (Auto) 0.400 Neut % (Auto) 66.7 Lymph % (Auto) 24.7 Pepin % (Auto) 7.6 Eos % (Auto) 0.3 Baso % (Auto) 0.3 Absolute Neuts (auto) 5.1 Absolute Lymphs (auto) 1.88 Nucleated RBC % 0 Sodium 136 Potassium 3.8 Chloride 104 Carbon Dioxide 26.0 Anion Gap 6 BUN 13 Creatinine 0.78 Estim Creat Clear Calc 102.80 Est GFR (MDRD) Af Amer 133 Est GFR (MDRD) Non-Af 110 BUN/Creatinine Ratio 16.6 Glucose 242 H Lactic Acid 1.5 Calcium 9.6 Total Bilirubin 0.80 AST 6 L ALT 19 Alkaline Phosphatase 88 Troponin I High Sens 4 Total Protein 7.1 Albumin 3.5 Globulin 3.6 Albumin/Globulin Ratio 1.0 Lipase 37 L Urine Color Urine Clarity Urine pH Ur Specific [place] Urine Protein Urine Glucose (UA) Urine Ketones Urine Occult Blood Urine Nitrite Urine Bilirubin Urine Urobilinogen Ur Leukocyte Esterase Urine RBC Urine WBC Ur Squamous Epith Cells Urine Bacteria Hyaline Casts Urine Mucus 05/30/22 18:30 WBC RBC Hgb Hct MCV MCH MCHC RDW Std Deviation RDW Coeff of Arjun Plt Count MPV Immature Gran % (Auto) Neut % (Auto) Lymph % (Auto) Pep[place] % (Auto) Eos % (Auto) Baso % (Auto) Absolute Neuts (auto) Absolute Lymphs (auto) Nucleated RBC % Sodium Potassium Chloride Carbon Dioxide Anion Gap BUN Creatinine Estim Creat Clear Calc Est GFR (MDRD) Af Amer Est GFR (MDRD) Non-Af BUN/Creatinine Ratio Glucose Lactic Acid Calcium Total Bilirubin AST ALT Alkaline Phosphatase Troponin I High Sens Total Protein Albumin Globulin Albumin/Globulin Ratio Lipase Urine Color Yellow Urine Clarity Clear Urine pH 7.0 Ur Specific [place] 1.010 Urine Protein 30 H Urine Glucose (UA) 50 H Urine Ketones 5 H Urine Occult Blood Negative Urine Nitrite Negative Urine Bilirubin Negative Urine Urobilinogen Normal Ur Leukocyte Esterase Negative Urine RBC 0 SEEN Urine WBC 0 SEEN Ur Squamous Epith Cells 0 SEEN Urine Bacteria 0 SEEN Hyaline Casts 5-10 SEEN Urine Mucus 0 SEEN Rhythm Strip Rhythm Strip: Sinus Rhythm Rate: 91 Ectopy: None EKG Initial EKG: Attestation: I personally reviewed and interpreted this EKG as follows: Interpretation: Sinus Rhythm Comments: Normal sinus rhythm at a rate of 91 Normal axis Normal intervals Normal ST segments Discharge Plan Triage Chief Complaint: Hypotension Other Complaint: Abd Pain ED Provider: Gilda Simon Dx/Rx/DC Orders Clinical Impression: Dehydration, Chronic constipation, Abdominal pain, Low BP Instructions: ED Constipation (Adult), ED Dehydration (Adult) Prescriptions: New lactulose [Enulose] 10 gram/15 mL solution 15 ml PO DAILY Qty: 237 0RF Rx Instructions: can take up to 3 times a day for constipation metoclopramide HCl [Reglan] 5 mg tablet 5 mg PO Q8 Qty: 30 0RF Rx Instructions: before meals No Action Anoro Ellipta 62.5-25 mcg/actuation blister with device 1 inh INHALATION QDAY Qty: 60 3RF insulin glargine 100 UNITS/ML insulin pen 22 units subcut QHS oxycodone-acetaminophen 10-325 mg Tablet 1 tab PO Q6H PRN (Reason: Pain) gabapentin 300 mg capsule 300 mg PO QHS insulin lispro [Humalog U-100 Insulin] 100 unit/mL solution 10 unit subcut TID Primary Care Provider: Klae Rodríguez Referrals: Kale Rodríguez DO [Primary Care Provider] - FriendKana DO [Med Staff - Active Staff] - As soon as possible Activity Restrictions/Additional Instructions: I suspect you are dehydrated which is why you are having low blood pressures. Make sure you are drinking plenty of fluids. You were given IV fluids in the ER. You been prescribed medication to help with your bowel movements as well as hopefully to improve your bowel transit. If you find these medicines helpful, please follow-up with your primary care doctor as well as GI for further treatment and evaluation. Disposition Disposition: Home, Self Care Discharge Date/Time: 05/30/22 20:43
[2022-05-30 16:57] LABS: AST(SGOT) 6 U/L (15-37); Alanine Aminotransfer ALT/SGPT 19 U/L (16-61); Albumin, Serum 3.5 g/dL (3.2-5.0); Alkaline Phosphatase 88 U/L (45-117); Anion Gap 6 (5-15); BUN 13 mg/dL (7-18); BUN/Creat Ratio 16.6 RATIO (10-20); Calcium,Total 9.6 mg/dL (8.5-10.1); Chloride 104 mmol/L (98-107); Creatinine, Serum 0.78 mg/dL (0.70-1.30); EST Glomerular Filtration Rate 110 mL/min (>60); Est Glom Filt Rate - Afr Amer 133 mL/min (>60); Globulin 3.6 g/dL (2.2-4.2); Glucose 242 mg/dL (74-106); Lipase 37 U/L (73-393); Potassium 3.8 mmol/L (3.5-5.1); Protein, Total 7.1 g/dL (6.4-8.2); Sodium Level 136 mmol/L (136-145); Troponin-I HS 4 pg/mL (3.0-78.0)
[2022-05-30 17:04] LABS: Lactic Acid 1.5 mmol/L (0.4-1.9)
[2022-05-30 18:18] VITALS: BP 156/97; PULSE 87; RESP 13; O2SAT 98
[2022-05-30 18:38] LABS: Bacteria 0 SEEN /hpf (None Seen); Mucous, Urine 0 SEEN /hpf (<or=2+); Red Blood Cells-Urine 0 SEEN /hpf (0-5); Squamous Epithelial Cells - UA 0 SEEN /hpf (0-5); White Blood Cells 0 SEEN /hpf (0-5)
[2022-05-30 18:44] LABS: Color, Urine Yellow (Yellow); Glucose, Dipstick 50 mg/dl (Normal); Ketone-Dipstick 5 mg/dl (Negative); Leukocyte Esterase-Dipstick Negative /ul (Negative); Nitrite-Dipstick Negative (Negative); Occult Blood-Urine Negative /ul (Negative); Protein-Dipstick 30 mg/dl (Negative); Urine Bilirubin Dipstick Negative (Negative); Urine Clarity Clear (Clear); Urine Urobilinogen Normal (Normal)
[2022-05-30 18:58] LABS: Hyaline Cast 5-10 SEEN /lpf (0-5)
== END 2022-05-30 20:43 | disposition home or self-care (01) ==
LOC: ED 16:48
PROVIDERS: Emergency Provider Emergency Medicine; PCP Family Medicine; Visit Provider Emergency Medicine
DX: K59.09 Other constipation (principal); E11.65 Type 2 diabetes mellitus with hyperglycemia; Z79.4 Long term (current) use of insulin; E86.0 Dehydration; G89.29 Other chronic pain; F55.2 Abuse of laxatives; F17.210 Nicotine dependence, cigarettes, uncomplicated; I95.9 Hypotension, unspecified; M19.90 Unspecified osteoarthritis, unspecified site; Z79.899 Other long term (current) drug therapy
CPT/HCPCS: 80053; 81001; 83605; 83690; 84484; 85025; 93005; 96360; 99283

== ENCOUNTER 2025-01-21 10:27 | Inpatient (IN) | payer OTHER, SELFPAY ==
[2025-01-21] VITALS (8 sets, daily range): BP systolic 125–162; BP diastolic 85–106; PULSE 78–92; RESP 14–20; TEMP 36.1–36.9; O2SAT 95–100; BMI 23.5; BMI 23.3
--- NOTE | 2025-01-21 10:53 | RAD_ITS ---
EXAM: XR Right Foot Complete, 3 or More Views CLINICAL INDICATION: INFECTION TECHNIQUE: Frontal, lateral and oblique views of the right foot. COMPARISON: No relevant prior studies available. FINDINGS: BONES/JOINTS: No obvious radiographic evidence of osteomyelitis. However, if clinical suspicion remains high, further evaluation with 3 phase bone scan or MRI is recommended. No acute fracture. No dislocation. No erosive changes to the osseous structures. SOFT TISSUES: Soft tissue swelling. No radiopaque foreign body. RAD/Foot min 3 Views IMPRESSION: No obvious radiographic evidence of osteomyelitis. However, if clinical suspici on remains high, further evaluation with 3 phase bone scan or MRI is recommended. Reading [facility]
[2025-01-21 11:17] LABS: Erythrocyte Sedimentation Rate 88 mm/hr (0-20)
[2025-01-21 11:20] LABS: Absolute Lymphocyte Count 1.71 X10^3/uL (0.83-4.51); Absolute Neutrophil Count 9.6 X10^3/uL (2.0-7.7); Basophil# 0.04 X10^3/uL; Basophil% 0.3 % (0-1); Eosinophil# 0.11 X10^3/uL; Eosinophils% 0.9 % (0-5); Hematocrit 38.5 % (40-54); Lymphocyte # 1.71 X10^3/ul (0.83-4.51); Lymphocyte % 13.7 % (19-41); Mean Corp Hgb Conc 33.8 g/dL (32-36); Mean Corpuscular Hgb 29.4 pg (27.0-32.0); Mean Corpuscular Volume 87.1 fL (80-94); Monocyte# 1.02 X10^3/uL; Monocyte% 8.2 % (0-10); NRBC Flagged by Analyzer 0 % (0-5); Neutrophil # 9.55 X10^3/uL (2.7-7.7); Neutrophil % 76.4 % (47-70); Platelet Count 421 K/mm3 (150-450); RBC Distribution Width CV 13.6 % (11.6-14.6); RBC Distribution Width SD 43.8 fl (35.1-43.9); Red Blood Count 4.42 M/mm3 (4.6-6.2); White Blood Count 12.5 K/mm3 (4.4-11.0)
--- NOTE | 2025-01-21 11:26 | EX.ED.DYSGE1 ---
HPI History of Present Illness Chief Complaint: Wound Narrative Narrative: Chief complaint and HPI: Right foot infection. 59-year-old diabetic male with past medical history of knee replacements, HLD presents for evaluation of right foot infection. Patient is on insulin for his diabetes. He states he has never followed with a manager talent. He denies peripheral neuropathy. Patient states he has had a ongoing callus on the plantar surface of his right foot. He states in October the callus fell out. He states yesterday he noticed swelling and purulent drainage from the foot. He states the day it became more erythematous. He denies any fever, chills, pain, nausea, vomiting. Review of systems: See HPI Medications: As listed on the chart Allergies: As listed on the chart PFSH: Per chart Vital signs: As listed on the chart. Reviewed. Physical exam: Gen: A&O x3, NAD Head: Normocephalic, atraumatic Eyes: No sclera icterus, conjunctiva clear ENT: Moist mucous membranes CV: RRR, no murmurs, no peripheral edema Resp: Lungs CTA BL, no w/r/c GI: Abd soft, non-distended, non-tender, no r/r/g Musc: Full ROM, no deformity, right lower extremity is swollen, erythematous, warm-mostly around the first toe-erythema is streaking up the foot-there is a small opening in the skin that is draining purulent material-foot is nontender, DP/PT pulses palpable, compartments soft, good capillary refill, No crepitus or bullae Skin: Warm, dry Neuro: Alert, oriented, grossly intact, sensation intact Psych: Cooperative, appropriate mood and affect [facility] Medical History (Updated 01/21/25 @ 16:[address] Yehuda Staples, DPRosalio) Osteoarthritis Pulmonary embolism Family history not obtainable due to adoption Proteinuria Migraine variant, intractable Injury of left deep peroneal nerve Hyperlipidemia Diabetes mellitus type 2, uncomplicated Acute venous embolism and thrombosis of deep vessels of distal lower extremity Home Medications ?Medication ?Instructions ?Recorded ?Last Taken ?Type insulin glargine 100 unit/mL (3 22 units subcut QHS diabetes 12/19/19 01/20/25 History mL) subcutaneous pen gabapentin 300 mg capsule 600 mg PO BID 05/30/22 01/21/25 History insulin lispro 100 unit/mL 10 unit subcut TID 05/30/22 Unknown History subcutaneous solution (Humalog U-100 Insulin) acetaminophen 325 mg tablet 650 mg PO Q12H PRN pain 01/21/25 01/21/25 History buprenorphine HCl 450 mcg buccal 450 mcg buccal Q12H 01/21/25 01/21/25 History film ([place]) Allergy/AdvReac Type Severity Reaction Status Date / Time cyclobenzaprine HCl (From AdvReac anxious Verified 01/21/25 10:28 Flexeril) Surgical History H/O hernia repair History of total knee replacement (TKR) Social History (Updated 02/10/21 @ 14:01 by Hanna Mason LIFE SCIENCES DIRECTOR, LIFE SCIENCES DIRECTOR-C) Smoking Status: Former smoker Tobacco: How many years used: 15 alcohol intake: current alcohol intake frequency: a few times a month EXAM Physical Exam Const Vital Signs: 01/21/25 10:27 01/21/25 11:27 01/21/25 12:00 Temperature 96.9 F L 96.9 F L 98.1 F Temperature Source Temporal Temporal Oral Pulse Rate 78 78 90 Respiratory Rate 14 14 15 Blood Pressure 150/87 H 150/87 H 142/87 H Blood Pressure Mean 108 108 105 Pulse Ox 98 98 100 Oxygen Delivery Method Room Air Room Air Room Air MDM MDM MDM Narrative Medical decision making narrative: 59-year-old diabetic male with past medical history of knee replacements, HLD presents for evaluation of right foot infection. Patient is a diabetic. Differential diagnosis includes but is not limited to cellulitis, osteomyelitis, hyperglycemia, electrolyte abnormality. Patient states he is not in any pain therefore pain medicine not given. NS bolus, Zosyn, vancomycin ordered. Infectious workup ordered including x-ray of the foot. CBC with leukocytosis of 12.5. No anemia. BMP with signs of dehydration but no JOVITA. Hyperglycemia. ESR 88. CRP 147. Lactic acid negative. X-ray of the foot was personally viewed and interpreted by me, ED physician. No fracture or dislocation. Per radiology no obvious evidence of osteomyelitis. Recommend MRI if high suspicion. I spoke with podiatry Dr. Staples. Agrees with admission and continuing antibiotics. Will see the patient in consult. Recommended obtaining culture from purulence. Hospital admission with MRI. Culture ordered. Dr. Sherman accepted admission and was made aware of MRI to be ordered. Patient was updated of all the results of her and understand the plan. Impression: 1. Right diabetic foot cellulitis 2. Hyperglycemia, history of DM 3. Dehydration Lab Data Labs: Laboratory Results - last 24 hr 01/21/25 11:00 WBC 12.5 H RBC 4.42 L Hgb 13.0 Hct 38.5 L MCV 87.1 MCH 29.4 MCHC 33.8 RDW Std Deviation 43.8 RDW Coeff of Arjun 13.6 Plt Count 421 MPV 9.0 Immature Gran % (Auto) 0.500 Neut % (Auto) 76.4 H Lymph % (Auto) 13.7 L [place] % (Auto) 8.2 Eos % (Auto) 0.9 Baso % (Auto) 0.3 Absolute Neuts (auto) 9.6 H Absolute Lymphs (auto) 1.71 Nucleated RBC % 0 ESR 88 H Sodium 130 L Potassium 4.6 Chloride 94 L Carbon Dioxide 26.9 Anion Gap 9 BUN 12 Creatinine 0.80 Estim Creat Clear Calc 108.51 Est GFR (MDRD) Non-Af 103 BUN/Creatinine Ratio 15.4 Glucose 310 H Lactic Acid 1.0 Calcium 9.2 C-React Prot Ext Range 147.00 H Radiography Diagnostic Testing: Clinical Impression(s) from Imaging Studies Foot X-Ray 01/21/25 10:53 IMPRESSION: No obvious radiographic evidence of osteomyelitis. However, if clinical suspicion remains high, further evaluation with 3 phase bone scan or MRI is recommended. Reading Location: [facility] Discharge Plan Disposition Disposition: Acute Care Hospital [facility] Discharge Date/Time: 01/21/25 14:38
[2025-01-21 11:46] LABS: Anion Gap 9 (5-15); BUN 12 mg/dL (4-19); BUN/Creat Ratio 15.4 RATIO (10-20); Calcium,Total 9.2 mg/dL (7.6-11.0); Carbon Dioxide 26.9 mmol/L (21.0-32.0); Chloride 94 mmol/L (98-108); EST Glomerular Filtration Rate 103 (>60); Estimated Creatinine Clearance 108.51 ml/min (50-250); Glucose 310 mg/dL (70-99); Potassium 4.6 mmol/L (3.3-5.1); Sodium Level 130 mmol/L (133-145)
[2025-01-21] MEDS: 0.9% Normal Saline (1000mL) 1,000 ML 1000 ML IV (11:49)
[2025-01-21] MEDS: Piperacil/Tazobactam 4.5 GM in 0.9% Normal Saline (100mL MB+) 100 ML IV (11:49)
--- NOTE | 2025-01-21 12:52 | HP.PCM.HOS_ITS ---
HPI - General General Date of Admission: 01/21/25 Date of Service: 01/21/25 Chief Complaint: Right heel wound HPI Narrative MIKI COLMENARES, is a 59 M who presented to the emergency department [facility] on 01/21/2025 with chief complaint of right heel diabetic foot wound. Patient had a callus there that had slowly transition to wound. He states it was opened in September and it close but feels like it possibly just closed superficially and may be undermining during that process. He said recently opened back up and has been more problematic with drainage and irritation. He had no fever or chills. He does not follow routinely with a communications manager. Patient reports that he prior to presentation ER worsening swelling and purulent drainage from the foot. He said it also became erythematous. Patient is a diabetic at baseline is on insulin. Vital signs on presentation showed a temperature of 96.9, heart rate 78, respiratory rate 14, blood pressure was 150/87 and pulse ox was 98% room air. CBC on presentation showed a white count of 12.5. Hemoglobin is normal. There is a left shift with a 76.4% neutrophilia. Chemistry panel showed mild hyponatremia however he was markedly hyperglycemic on presentation with a blood sugar of 310. Lactic acid was 1.0. CRP was elevated 147 and ESR was 88. Foot x-ray showed no obvious radiographic evidence of osteomyelitis but did show soft tissue swelling and no foreign object. He was given vancomycin and Zosyn emergency department and admitted to medical surgical. FORMERLY [facility], [facility]–1983 Medical History Osteoarthritis Pulmonary embolism Family history not obtainable due to adoption Proteinuria Migraine variant, intractable Injury of left deep peroneal nerve Hyperlipidemia Diabetes mellitus type 2, uncomplicated Acute venous embolism and thrombosis of deep vessels of distal lower extremity Home Medications ?Medication ?Instructions ?Recorded ?Last Taken ?Type insulin glargine 100 unit/mL (3 22 units subcut QHS di abetes 12/19/19 01/20/25 History mL) subcutaneous pen gabapentin 300 mg capsule 600 mg PO BID 05/30/2201/21 History insulin lispro 100 unit/mL 10 unit subcut TID 05/30/22 Unknown History subcutaneous solution (Humalog U-100 Insulin) acetaminophen 325 mg tablet 650 mg PO Q12H PRN pain 01/21/25 History buprenorphine HCl 450 mcg buccal 450 mcg buccal Q12H 0 01/21/25 01/21/25 History film (Belbuca) Allergy/AdvReac Type Severity Reaction Status Date / Time cyclobenzaprine HCl (From AdvReac anxious Verified 01/21/25 10:28 Flexeril) Family History (Updated 01/21/25 @ 19:[address] Miroslava Sherman DO) Other COPD (chronic obstructive pulmonary disease) Diabetes Hypertension Surgical History (Updated 01/21/25 @ 19:[address] Miroslava Sherman, ) H/O hernia repair History of total knee replacement (TKR) Social History (Updated 01/21/25 @ 19:[address] Miroslava Sherman DO) household members: spouse housing: house Smoking Status: Former smoker quit date: 01/07/25 Tobacco: How many years used: 15 alcohol intake: current alcohol intake frequency: a few times a month ROS Constitutional Constitutional: Denies anorexia, change in weight, chills, fatigue, fever(s), malaise, night sweats, weakness or other Eyes Eyes: Denies blurry vision, change in eye color, change in vision, discharge from eye(s), double vision, erythema, eye pain, loss of vision or other ENT HEENT: Denies abnormal hearing, dysphagia, ear pain, epistaxis, headache(s), hearing loss, nasal congestion, nasal discharge, post nasal drip, sinus pressure, sore throat or other Cardiovascular Cardiovascular: Denies chest pain, claudication, dyspnea on exertion, edema, lightheadedness, orthopnea, palpitations, paroxysmal nocturnal dyspnea, rapid heart rate, syncope or other Respiratory/Chest Respiratory/Chest: Denies cough, dyspnea, excessive phlegm production, hemoptysis, productive cough, shortness of breath at rest, shortness of breath with exertion, wheezing or other Gastrointestinal Gastrointestinal: Denies abdominal pain, coffee ground emesis, constipation, diarrhea, dyspepsia, hematemesis, hematochezia, loose stools, melena, nausea, vomiting or other Genitourinary Genitourinary: Denies burning urination, difficulty urinating, dysuria, hematuria, nocturia, urinary frequency, urinary hesitancy, urinary incontinence, urinary urgency or other Musculoskeletal Musculoskeletal: Reports back pain, joint pain and joint stiffness; Denies arthralgias, joint swelling, myalgias, neck pain or other Integumentary Integumentary: Reports new lesions and wounds; Denies dry skin, jaundice, lesions, pruritus, rash or other Neurologic Neurologic: Denies abnormal gait, abnormal speech, confusion, disequilibrium, dizziness, focal weakness, headache(s), numbness, paresthesias, seizure-like activity, seizures, syncope, tingling, tremor(s) or other Psychiatric Psychiatric: Denies anxiety, depression, homicidal ideation, suicidal ideation or other Endocrine Endocrinology: Denies change in body appearance, cold intolerance, excessive sweating, heat intolerance, polydipsia, polyuria or other Hematologic/Lymphatic Hematologic/Lymphatic: Denies anemia, easy bleeding, easy bruising, lymphadenopathy or other Allergic/Immunologic Allergic/Immunologic: Denies rhinitis, hives, eczemia, asthma or other Vital Signs Vital Signs Vital Signs: 01/21/25 10:27 01/21/25 11:27 01/21/25 12:00 Temperature 96.9 F L 96.9 F L 98.1 F Temperature Source Temporal Temporal Oral Pulse Rate 78 78 90 Respiratory Rate 14 14 15 Blood Pressure 150/87 H 150/87 H 142/87 H Blood Pressure Mean 108 108 105 Pulse Ox 98 98 100 Oxygen Delivery Method Room Air Room Air Room Air Weight Weight: 76.5 kg Body Mass Index (BMI) 23.5 Physical Exam Const alert, oriented x3, no apparent distress, average body habitus, healthy appearing and well nourished Constitutional Narrative: Very pleasant, middle-aged, white male, lying in bed flat, appears comfortable currently, nontoxic General Appearance: cooperative HEENT normocephalic, head/scalp atraumatic, hearing grossly normal bilaterally and moist oral mucous membranes HEENT Narrative: Dentition is poor, Mallampati is 2, no thrush Resp normal respiratory effort, no retractions, no use of accessory muscles and clear to auscultation bilaterally Resp Narrative: Diffusely diminished but clear Auscultation: Negative for rales, rhonchi or wheezes Cardio regular rate, regular rhythm, S1 normal heart sound, S2 normal heart sound, no murmurs, no rub, no gallops and no clicks GI normal to inspection, nondistended, normoactive bowel sounds, soft to palpation and non-tender Extremity no clubbing, cyanosis or edema Extremity Narrative: Right lower extremity with postoperative dressing in place. Cap refill good. Neuro oriented x3, moves all extremities and no focal motor deficits Speech: speech normal Psych affect normal Psych Narrative: Very pleasant, eye contact is good and patient interacts appropriately Results Lab / Micro Data 01/21/25 11:00 01/21/25 11:00 Labs: Laboratory Results - last 24 hr 01/21/25 11:00: WBC 12.5 H, RBC 4.42 L, Hgb 13.0, Hct 38.5 L, MCV 87.1, MCH 29.4, MCHC 33.8, RDW Std Deviation 43.8, RDW Coeff of Arjun 13.6, Plt Count 421, MPV 9.0, Immature Gran % (Auto) 0.500, Neut % (Auto) 76.4 H, Lymph % (Auto) 13.7 L, Metcalfe % (Auto) 8.2, Eos % (Auto) 0.9, Baso % (Auto) 0.3, Absolute Neuts (auto) 9.6 H, Absolute Lymphs (auto) 1.71, Nucleated RBC % 0, ESR 88 H, Sodium 130 L, Potassium 4.6, Chloride 94 L, Carbon Dioxide 26.9, Anion Gap 9, BUN 12, Creatinine 0.80, Estim Creat Clear Calc 108.51, Est GFR (MDRD) Non-Af 103, BUN/Creatinine Ratio 15.4, Glucose 310 H, Lactic Acid 1.0, Calcium 9.2, C-React Prot Ext Range 147.00 H Imaging Radiology Impression Foot X-Ray 01/21/25 10:53 IMPRESSION: No obvious radiographic evidence of osteomyelitis. However, if clinical suspicion remains high, further evaluation with 3 phase bone scan or MRI is recommended. Reading Location: [facility] Assessment & Plan Assessment/Plan (1) Diabetic foot ulcer: (2) Hyperglycemia due to type 2 diabetes mellitus: (3) Leukocytosis: (4) Tobacco abuse: PLAN: Plan Right foot diabetic foot ulcer -Check MRI to rule out osteomyelitis with markedly elevated ESR and CRP -Vascular studies per podiatry -Cultures -Vancomycin and Zosyn -Weightbearing per podiatry -Podiatry consult -Wound care consult -ID consult Leukocytosis -Suspect secondary to the above -Management per above Hyponatremia -Pseudohyponatremia due to hyperglycemia on presentation DM-2 with hyperglycemia Can check hemoglobin A1c -Continue home insulin with glargine 22 units at at bedtime -SSI with Accu-Cheks as ordered -Carb controlled diet History of DVT -Provoked after knee surgery -Not currently anticoagulated -Monitor Osteoarthritis -Status post 5 total knee arthroplasties -Patient had some med failure issues but no infection -Has chronic pain and sees pain management -Continue home buprenorphine -As needed oxycodone available Neuropathy -Continue home gabapentin History of hyperlipidemia -Patient is currently not on any medication -Recommend outpatient follow-up Elevated blood pressure -Patient does not have documented history of hypertension -Will monitor blood pressures and if remains elevated add HARSHAD inhibitor or ARB given his history of diabetes as this will be of benefit with renal protection Tobacco abuse Patient quit 2 weeks ago -Nicotine patches available -Encouraged ongoing cessation DVT prophylaxis -Enoxaparin 40 mg daily CODE STATUS -Full code as verified on admission Charges/Coding Visit Charges Inpatient E&M: 69608 Init Hosp L2
[2025-01-21] MEDS: Vancomycin HCl 2,000 MG in 0.9% Normal Saline (500mL Bag) 500 ML 250 MG IV (12:55)
--- NOTE | 2025-01-21 13:22 | CASEMGMT ---
Care Management Face to Face with patient for initial transition planning/care coordination assessment in the ED.? This sql report writer introduced self and role at [facility]. Patient alert and oriented. Patient willing to participate in assessment and is able to answer all questions appropriately.? Care providers, pharmacy, and demographics verified. Admitting Diagnosis: Diabetic foot ulcer Other diagnosis history: osteoarthritis, diabetes, acute venous embolism PCP: none, was given [facility] provider list Specialists: ?Pain management center, [facility] Preferred Pharmacy: [facility] Insurance: [employer] Prescription Benefit: yes Living Will/HPOA: ?yes LNOK: Living Arrangements: Lives with in ran home, 2 steps to enter. Patient is independent with ADLs and IADLs Transportation: Patient drives DME: walker, wheelchair HHC: ?none SNF/Rehab: none Community Resources: none Behavioral Health History: none Patient goals: Patient wishes to discharge home, denies need for home health care at this time. Patient denies any further needs or concerns at this time. Disposition Plan: admission to acute; RN CM/SW to follow for discharge planning needs that may arise. Xenia Valera, DEAN OF FACULTY, [employer]ISH[employer]
--- NOTE | 2025-01-21 14:58 | PHA.PHARE_ITS ---
Consult Antibiotic Management Pharmacy has been consulted to manage selected antibiotic: Vancomycin Type of Intervention Type of Consult: New start Suspected Infection Suspected Infection: Skin/Soft tissue Prior Doses of Antibiotics Prior Doses of Antibiotics Received/Current Regimen: Vancomycin 2000 mg IV x 1 given 01/22 @ 1030, patient also on piperacillin/tazoba ctam 3.375 grams Q8H Labs Labs: Sodium 130 mmol/L (133-145) L 01/21/25 11:00 Potassium 4.6 mmol/L (3.3-5.1) 01/21/25 11:00 Chloride 94 mmol/L (98-108) L 01/21/25 11:00 Carbon Dioxide 26.9 mmol/L (21.0-32.0) 01/21/25 11:00 Anion Gap 9 (5-15) 01/21/25 11:00 BUN 12 mg/dL (4-19) 01/21/25 11:00 Creatinine 0.80 mg/dL (0.70-1.20) 01/21/25 11:00 Est GFR (MDRD) Non-Af 103 (>60) 01/21/25 11:00 BUN/Creatinine Ratio 15.4 RATIO (10-20) 01/21/25 11:00 Glucose 310 mg/dL (70-99) H 01/21/25 11:00 Dosing Weight Weight used for dosin kg Estimated Creatinine Clearance Estimated Creatinine Clearance: ~ 109 Goal Trough Goal Trough: 15-20 mcg/mL Pharmacy Plan for Drug Dosing Pharmacy Plan for Drug Dosing: Vancomycin 2000 mg IV x 1 followed by 1000 mg IV Q8H Pharmacy Service will continue to monitor and adjust dosing as required. Follow-Up Labs Follow-Up Labs: Trough: Vancomycin Date/Time Labs Ordered Labs to be done on [date and time ordered]: 01/22/25 @ 1030
--- NOTE | 2025-01-21 15:18 | WOUNDNOTE ---
wound photo: right plantar foot
--- NOTE | 2025-01-21 15:19 | WOUNDNOTE ---
wound photo: right dorsal foot
--- NOTE | 2025-01-21 15:33 | ART_ITS ---
Reason For Study Reason For Study: Ulcer Procedure A bilateral lower extremity continuous wave Doppler with analog waveform analysis,segmental pressures,and ankle brachial indexes without exercise. Left Segmental Pressures Left posterior tibial artery = 131mmHg. Left dorsalis pedis artery = 134mmHg. Left digit = 112 mmHg. The left dorsalis pedis waveforms are triphasic. The left posterior tibial artery waveforms are triphasic. Right Segmental Pressures Right brachial= 118mmHg. Right posterior tibial artery = 129mmHg. Right dorsalis pedis artery = 147mmHg. Right digit = 96 mmHg. The right dorsalis pedis waveforms are triphasic. The right posterior tibial artery waveforms are triphasic. Indices The right ankle brachial index by the dorsalis pedis is 1.25. The right ankle brachial index by the posterior tibial artery is 1.09. The right digital-brachial index is 0.81. The left ankle brachial index by the dorsalis pedis is 1.14. The left ankle brachial index by the posterior tibial artery is 1.11. The left digital-brachial index is 0.95. VL/Lower Ext Art Exam w/o Exercis Interpretation Summary Triphasic Doppler waveforms are noted at ankle level bilaterally. Pulse-volume recordings appear satisfactory at all levels bilaterally. Resting ankle-brachial indices are normal bilaterally. Digi octavio-brachial indices are normal bilaterally. There is no evidence of significant arterial occlusive disease in the lower ext remities bilaterally. Ordering Physician: Yehuda Staples Performed By: Ching Rodrigues RVT
--- NOTE | 2025-01-21 15:39 | MRI_ITS ---
EXAM: MRI of the right foot without and with intravenous contrast. CLINICAL HISTORY: Right foot infection, near the plantar and dorsal aspect of the 1st metatarsal head. Swelling and drainage. COMPARISON: Right foot radiographs 01/21/2025 TECHNIQUE: Multiplanar, multisequence MRI images of the right foot were obtained without and with intravenous contrast. 15 cc Clariscan IV contrast was administered. FINDINGS: The nonweightbearing alignment of the tarsal bones is maintained. The Lisfranc ligament is intact. Moderate degenerative changes of the included tarsal metatarsal joints. Moderate degenerative changes of the interphalangeal and MTP joints, greatest involving the 1st MTP joint. The major flexor and extensor tendons are intact. There is moderately extensive abnormal increased STIR signal involving the soft tissues and subcutaneous fat of the mid to distal right foot. 7 mm transverse dimension wound/soft tissue defect plantar right foot, near the head of the 1st metatarsal. There is some patchy abnormal increased T2/stir signal involving the proximal 3rd and 4th metatarsals, without discrete fracture line. There is moderate abnormal marrow edema involving the proximal phalanx of the 1st toe, and mild patchy marrow edema of the distal 1st metatarsal. The bones of the remaining toes appear normal in signal. On the postcontrast images, there is diffuse patchy enhancement of the soft tissues and subcutaneous fat of the mid to distal right foot, greatest involving the plantar aspect. There is abnormal peripherally enhancing fluid collection involving the soft tissues/deep subcutaneous fat near the head of the 1st metatarsal on images 5-9 of the sagittal postcontrast images. The area of peripherally enhancing fluid signal extends to and may involve the flexor hallucis longus tendon sheath. There is also abnormal probable sinus tract extending from a small superficial abscess medial plantar aspect of the right foot to the medial skin surface on images 18-20 of the axial postcontrast images. There is some patchy abnormal enhancement of the proximal phalanx right 1st toe. There is also a serpiginous probable small abscess involving the dorsal subcutaneous tissues/fat near a soft tissue wound of the 1st MTP joint (images 10-11 sagittal postcontrast images measuring 2 cm AP x 7 cm craniocaudad. MRI/Lower Ext No Joint W/WO Cont IMPRESSION: Diffuse abnormal edema/enhancement of the mid to distal right foot, concerning for cellulitis/infection. There is probable osteomyelitis involving the proximal phalanx right 1st toe as well as the dista l 1st metatarsal. There are soft tissue wounds of the dorsal and plantar soft tissues as well as a sinus tract extending to the medial skin surface of the distal right foot. There are peripherally enhancing probable abscesses of the dorsal and plantar aspects of the right foot near the 1st MTP joint, greatest at the plantar aspect. The suspected kamini ntar abscess near the 1st MTP joint appears to extend to and partially involve the sheath or tendon of the flexor hallucis lo ngus. Reading [facility]
--- NOTE | 2025-01-21 16:47 | PCM.CONS.GEN ---
Assessment & Plan Assessment/Plan (1) Cellulitis of foot, right: (2) Diabetic polyneuropathy: (3) Type 2 diabetes mellitus with foot ulcer: PLAN: Plan Evaluation performed. Reviewed diagnostic data. There is diabetic ulcer with abscess formation right foot. Reviewed right foot xrays from today - no gas in tissues, no evidence of osteomyelitis. MRI has been ordered right foot for further evaluation. Ordered LEAS for further evaluation of LE arterial flow. A culture of right foot wound has been obtained and results pending - patient is on Vancomycin and Zosyn. Discussed debridement of ulceration and incision and drainage of right foot with patient today which was completed bedside today as noted below. No weightbearing right foot. Keep right foot elevated. Podiatry will continue to follow, thank you for consultation. Right foot ulcer debridement and incision and drainage: Discussed with patient in detail, reviewed possible benefits and risks, and alternative options. Patient elected to proceed with the procedure, the consent form was reviewed with him and he freely signed it. After consent was obtained the skin was cleansed with 70% isopropyl alcohol right foot, using a 10 blade the ulceration was debrided down to and including fascia layer sub 1st metatarsal phalangeal joint (MTPJ) in excisional fashion, area debrided measured 1cm x 0.8cm including fascia layer, also there is visible abscess to dorsal and medial 1st MTPJ which was incised using a 10 blade, there was immediate purulence that was released, all of this drained out and the loculations of the abscess were broken up using a hemostat, the abscess extended to the fascia layer, did not probe to bone. The sites were flushed with normal saline solution, a gauze, kerlix and natalia dressing was applied. Keep clean, dry and intact, ok to re-inforce with gauze and kerlix as needed by nursing. Patient tolerated well with no complications. No anesthesia was needed due to patient's peripheral neuroapthy. He was resting in his hospital bed the entire time, A+Ox3 and NAD. HPI Consult Data Date of Consult: 01/21/25 HPI Narrative Reason for Consultation: Right foot infection HPI Narrative: MIKI COLMENARES, is a 59 M who presents with wound, drainage, redness and infection right foot. He relates he developed a callus on the bottom of his right foot, relates it fell off 2 months ago, relates there is a wound there, relates just recently foot became swollen and red, and there is drainage coming out. He has diabetes but does not follow with physician currently, relates he has not had a ha1c test in awhile. 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 He relates he is an his can help him out but she travels a lot and gone for a week at a time. He denies any pain to his foot. He has been admitted for further management. He has been started on IV antibiotics Vancomycin and Zosyn. He relates to history of multiple knee surgeries. [facility] Medical History (Updated 01/21/25 @ 16:[address] Miki Staples, MARLEE) Osteoarthritis Pulmonary embolism Family history not obtainable due to adoption Proteinuria Migraine variant, intractable Injury of left deep peroneal nerve Hyperlipidemia Diabetes mellitus type 2, uncomplicated Acute venous embolism and thrombosis of deep vessels of distal lower extremity Home Medications ?Medication ?Instructions ?Recorded ?Last Taken ?Type insulin glargine 100 unit/mL (3 22 units subcut QHS diabetes 12/19/19 01/20/25 History mL) subcutaneous pen gabapentin 300 mg capsule 600 mg PO BID 05/30/22 01/21/25 History insulin lispro 100 unit/mL 10 unit subcut TID 05/30/22 Unknown History subcutaneous solution (Humalog U-100 Insulin) acetaminophen 325 mg tablet 650 mg PO Q12H PRN pain 01/21/25 01/21/25 History buprenorphine HCl 450 mcg buccal 450 mcg buccal Q12H 01/21/25 01/21/25 History film (Belbuca) Allergy/AdvReac Type Severity Reaction Status Date / Time cyclobenzaprine HCl (From AdvReac anxious Verified 01/21/25 10:28 Flexeril) Surgical History H/O hernia repair History of total knee replacement (TKR) Social History (Updated 02/10/21 @ 14:01 by Hanna Mason [employer], [employer]-C) Smoking Status: Former smoker Tobacco: How many years used: 15 alcohol intake: current alcohol intake frequency: a few times a month Physical Exam Const alert, oriented x3 and no apparent distress Constitutional Narrative: Right foot with sub 1st metatarsal head ulceration probing to fascia layer, there is nonviable tissue to and including fascia layer, there is significant erythema and edema to foot, there is visible abscess formation to dorsal 1st MTPJ and to medial forefoot as well with purulent drainage, there is no POP c/w peripheral neuropathy right foot, DP and PT pulses intact right foot with CFT < 3 seconds to all toes. Left foot: no open lesions, no cellulitis, no erythema, no ecchymosis, no visible abscess, CFT < 2 seconds and pedal pulses are intact, sensation decreased c/w chronic peripheral neuropathy. Calf soft and supple bilateral lower extremity with no calf edema. Lab / Micro Data 01/21/25 11:00 01/21/25 11:00 Labs: Laboratory Results - last 24 hr 01/21/25 11:00: WBC 12.5 H, RBC 4.42 L, Hgb 13.0, Hct 38.5 L, MCV 87.1, MCH 29.4, MCHC 33.8, RDW Std Deviation 43.8, RDW Coeff of Arjun 13.6, Plt Count 421, MPV 9.0, Immature Gran % (Auto) 0.500, Neut % (Auto) 76.4 H, Lymph % (Auto) 13.7 L, Dawes % (Auto) 8.2, Eos % (Auto) 0.9, Baso % (Auto) 0.3, Absolute Neuts (auto) 9.6 H, Absolute Lymphs (auto) 1.71, Nucleated RBC % 0, ESR 88 H, Sodium 130 L, Potassium 4.6, Chloride 94 L, Carbon Dioxide 26.9, Anion Gap 9, BUN 12, Creatinine 0.80, Estim Creat Clear Calc 108.51, Est GFR (MDRD) Non-Af 103, BUN/Creatinine Ratio 15.4, Glucose 310 H, Lactic Acid 1.0, Calcium 9.2, C-React Prot Ext Range 147.00 H Micro: Microbiology 01/21/25 13:01 Wound - Right Foot Skin and Soft Tissue MRSA/MSSA (PCR - Final Staphylococcus aureus Imaging Radiology Impression Foot X-Ray 01/21/25 10:53 IMPRESSION: No obvious radiographic evidence of osteomyelitis. However, if clinical suspicion remains high, further evaluation with 3 phase bone scan or MRI is recommended. Reading [facility]
[2025-01-21] MEDS: Insulin Lispro 100 UNIT/ML INSULN.PEN SC ×2 (16:49→20:47)
[2025-01-21 16:55] LABS: Bedside Glucose 191 mg/dL (74-106)
[2025-01-21] MEDS: 0.9% Normal Saline (100mL Bag) 100 ML 15 ML IV (18:49)
[2025-01-21] MEDS: Gabapentin 600 MG Tablet PO (18:49)
[2025-01-21] MEDS: Vancomycin IV 1,000 MG/200 ML BAG 200 MG IV (18:50)
[2025-01-21] MEDS: 0.9% Saline Lock 10 ML Syringe IV (18:50)
[2025-01-21] MEDS: Acetaminophen 325 MG Tablet 650 MG PO (18:53)
[2025-01-21] MEDS: Insulin Glargine-YFGN 100 UNIT/ML Pen 22 UNIT SC (20:47)
[2025-01-21] MEDS: Piperacil/Tazobactam 3.375 GM in 0.9% Normal Saline (50mL MB+) 50 ML IV (20:48)
[2025-01-21 22:04] LABS: Bedside Glucose 179 mg/dL (74-106)
[2025-01-22] MEDS: oxyCODONE 5 MG Tablet PO (01:39)
[2025-01-22 02:01] VITALS: BP 128/73; PULSE 85; RESP 16; TEMP 36.6; O2SAT 97
[2025-01-22] MEDS: Vancomycin IV 1,000 MG/200 ML BAG 200 MG IV ×3 (03:23→22:31)
[2025-01-22] MEDS: 0.9% Saline Lock 10 ML Syringe IV ×2 (03:23→06:07)
[2025-01-22] MEDS: Gabapentin 600 MG Tablet PO ×2 (06:06→17:13)
[2025-01-22 06:07] LABS: Absolute Lymphocyte Count 1.79 X10^3/uL (0.83-4.51); Absolute Neutrophil Count 6.1 X10^3/uL (2.0-7.7); Basophil# 0.04 X10^3/uL; Basophil% 0.4 % (0-1); Eosinophil# 0.17 X10^3/uL; Eosinophils% 1.9 % (0-5); Hematocrit 35.6 % (40-54); Hemoglobin 11.9 g/dL (13.0-16.5); Lymphocyte # 1.79 X10^3/ul (0.83-4.51); Mean Corp Hgb Conc 33.4 g/dL (32-36); Mean Corpuscular Hgb 29.1 pg (27.0-32.0); Monocyte# 0.77 X10^3/uL; Monocyte% 8.6 % (0-10); NRBC Flagged by Analyzer 0 % (0-5); Neutrophil # 6.12 X10^3/uL (2.7-7.7); Neutrophil % 68.5 % (47-70); Platelet Count 398 K/mm3 (150-450); RBC Distribution Width CV 13.6 % (11.6-14.6); RBC Distribution Width SD 43.3 fl (35.1-43.9); Red Blood Count 4.09 M/mm3 (4.6-6.2); White Blood Count 8.9 K/mm3 (4.4-11.0)
[2025-01-22] MEDS: Piperacil/Tazobactam 3.375 GM in 0.9% Normal Saline (50mL MB+) 50 ML IV ×3 (06:07→23:52)
[2025-01-22] MEDS: Acetaminophen 325 MG Tablet 650 MG PO ×2 (06:14→17:14)
[2025-01-22 06:34] LABS: Bedside Glucose 133 mg/dL (74-106)
[2025-01-22 06:52] LABS: Phosphorus 3.2 mg/dL (2.7-4.5)
[2025-01-22 07:02] LABS: ALB/GLOB Ratio 0.8 RATIO (0.9-2.4); AST(SGOT) 10 U/L (<=37); Alanine Aminotransfer ALT/SGPT 12 U/L (<=46); Albumin, Serum 3.2 g/dL (3.5-5.0); Alkaline Phosphatase 99 U/L (40-129); Anion Gap 10 (5-15); BUN 8 mg/dL (4-19); BUN/Creat Ratio 11.9 RATIO (10-20); Calcium,Total 8.9 mg/dL (7.6-11.0); Carbon Dioxide 23.9 mmol/L (21.0-32.0); Chloride 101 mmol/L (98-108); Creatinine, Serum 0.63 mg/dL (0.70-1.20); EST Glomerular Filtration Rate 111 (>60); Estimated Creatinine Clearance 137.78 ml/min (50-250); Glucose 158 mg/dL (70-99); Potassium 4.1 mmol/L (3.3-5.1); Protein, Total 7.2 g/dL (5.9-8.4); Sodium Level 135 mmol/L (133-145); Total Bilirubin 0.27 mg/dL (0.00-1.30)
[2025-01-22 07:10] LABS: Hemoglobin A1c 12.2 % (<=5.6)
--- NOTE | 2025-01-22 07:10 | PN.HOSP_ITS ---
Reason for Visit Reason for Visit: Right diabetic foot wound Subjective Subjective No issues overnight. We reviewed his MRI. Current plan is for conservative management if at all possible he would like, sparing therapy if at all possible. Objective Data Objective Data Vital Signs: Vital Signs Temp Pulse Resp BP Pulse Ox O2 Del Method 98 F 85 16 128/73 H 97 Room Air 01/22/25 02:01 01/22/25 02:01 01/22/25 02:01 01/22/25 02:01 01/22/25 02:01 01/22/25 02:01 Oxygen Delivery Method Room Air Weight: 75.9 kg Body Mass Index (BMI) 23.3 Intake & Output: Intake and Output for Last 24 Hours 01/20/25 01/21/25 01/22/25 23:59 23:59 23:59 Intake Total 1855.00 / 1855.00 314.75 / 314.75 Output Total 700 / 700 450 / 450 Balance 1155.00 / 1155.00 -135.25 / -135.25 Lab / Micro Data 01/22/25 05:20 01/22/25 05:20 Labs: Laboratory Results - last 24 hr 01/21/25 11:00: WBC 12.5 H, RBC 4.42 L, Hgb 13.0, Hct 38.5 L, MCV 87.1, MCH 29.4, MCHC 33.8, RDW Std Deviation 43.8, RDW Coeff of Arjun 13.6, Plt Count 421, MPV 9.0, Immature Gran % (Auto) 0.500, Neut % (Auto) 76.4 H, Lymph % (Auto) 13.7 L, Christian % (Auto) 8.2, Eos % (Auto) 0.9, Baso % (Auto) 0.3, Absolute Neuts (auto) 9.6 H, Absolute Lymphs (auto) 1.71, Nucleated RBC % 0, ESR 88 H, Sodium 130 L, Potassium 4.6, Chloride 94 L, Carbon Dioxide 26.9, Anion Gap 9, BUN 12, Creatinine 0.80, Estim Creat Clear Calc 108.51, Est GFR (MDRD) Non-Af 103, BUN/Creatinine Ratio 15.4, Glucose 310 H, Lactic Acid 1.0, Calcium 9.2, C-React Prot Ext Range 147.00 H 01/21/25 16:29: POC Glucose 191 H 01/21/25 20:45: POC Glucose 179 H 01/22/25 05:20: WBC 8.9, RBC 4.09 L, Hgb 11.9 L, Hct 35.6 L, MCV 87.0, MCH 29.1, MCHC 33.4, RDW Std Deviation 43.3, RDW Coeff of Arjun 13.6, Plt Count 398, MPV 9.0, Immature Gran % (Auto) 0.600, Neut % (Auto) 68.5, Lymph % (Auto) 20.0, Christian % (Auto) 8.6, Eos % (Auto) 1.9, Baso % (Auto) 0.4, Absolute Neuts (auto) 6.1, Absolute Lymphs (auto) 1.79, Nucleated RBC % 0, Sodium 135, Potassium 4.1, Chloride 101, Carbon Dioxide 23.9, Anion Gap 10, BUN 8, Creatinine 0.63 L, Estim Creat Clear Calc 137.78, Est GFR (MDRD) Non-Af 111, BUN/Creatinine Ratio 11.9, G lucose 158 H, Calcium 8.9, Phosphorus 3.2, Magnesium 2.0, Total Bilirubin 0.27, AST 10, ALT 12, Alkaline Phosphatase 99, Total Protein 7.2, Albumin 3.2 L, Globulin 4.0, Albumin/Globulin Ratio 0.8 L 01/22/25 06:08: POC Glucose 133 H Micro: Microbiology 01/21/25 13:01 Wound - Right Foot Gram Stain - Final 01/21/25 13:01 Wound - Right Foot Skin and Soft Tissue MRSA/MSSA (PCR - Final Staphylococcus aureus Radiography Diagnostic Testing: Radiology Impression Foot X-Ray 01/21/25 10:53 IMPRESSION: No obvious radiographic evidence of osteomyelitis. However, if clinical suspicion remains high, further evaluation with 3 phase bone scan or MRI is recommended. Reading Location: [facility] Lower Extremity MRI 01/21/25 15:39 IMPRESSION: Diffuse abnormal edema/enhancement of the mid to distal right foot, concerning for cellulitis/infection. There is probable osteomyelitis involving the proximal phalanx right 1st toe as well as the distal 1st metatarsal. There are soft tissue wounds of the dorsal and plantar soft tissues as well as a sinus tract extending to the medial skin surface of the distal right foot. There are peripherally enhancing probable abscesses of the dorsal and plantar aspects of the right foot near the 1st MTP joint, greatest at the plantar aspect. The suspected plantar abscess near the 1st MTP joint appears to extend to and partially involve the sheath or tendon of the flexor hallucis longus. Reading [facility] Physical Exam Const alert, oriented x3, no apparent distress, average body habitus, healthy appearing and well nourished Constitutional Narrative: Very pleasant, middle-aged, white male, lying in bed flat, appears comfortable currently, nontoxic General Appearance: cooperative HEENT normocephalic, head/scalp atraumatic and moist oral mucous membranes HEENT Narrative: Dentition is poor, Mallampati is 2, no thrush Resp normal respiratory effort, no retractions, no use of accessory muscles and clear to auscultation bilaterally Resp Narrative: Diffusely diminished but clear Auscultation: Negative for rales, rhonchi or wheezes Cardio regular rate, regular rhythm, S1 normal heart sound, S2 normal heart sound, no murmurs, no rub, no gallops and no clicks GI normal to inspection, nondistended, normoactive bowel sounds, soft to palpation and non-tender Extremity no clubbing, cyanosis or edema Extremity Narrative: Right lower extremity with postoperative dressing in place-wound care pictures reviewed Neuro oriented x3, moves all extremities and no focal motor deficits Speech: speech normal Psych affect normal Psych Narrative: Very pleasant, eye contact is good and patient interacts appropriately Assessment & Plan Assessment/Plan (1) Diabetic foot ulcer: (2) Hyperglycemia due to type 2 diabetes mellitus: (3) Leukocytosis: (4) Tobacco abuse: PLAN: Plan Right foot diabetic foot ulcer -MRI is suggestive of further abscess and osteomyelitis of the first toe--> current plan is watchful waiting hopeful for conservative management success -Vascular studies are still pending read but have been performed -Cultures showing MSSA thus far -Continue vancomycin and Zosyn for now on till more finalized cultures are available -Patient is to be nonweightbearing until further instructed by podiatry -Podiatry is following-appreciate input -Wound care is following-appreciate care -ID is following appreciate input Leukocytosis -Resolved Hyponatremia -Resolved DM-2 with hyperglycemia -Hemoglobin A1c is 12.2 -Fasting blood sugar this morning is 158 -Continue 22 units at at bedtime of basal insulin -SSI with Accu-Cheks as ordered -May need to add prandial insulin depending on trends -Carb controlled diet History of DVT -Provoked after knee surgery -Not currently anticoagulated -Monitor Osteoarthritis -Status post 5 total knee arthroplasties -Patient had some med failure issues but no infection -Has chronic pain and sees pain management -Continue home buprenorphine -As needed oxycodone available Neuropathy -Continue home gabapentin History of hyperlipidemia -Patient is currently not on any medication -Recommend outpatient follow-up Elevated blood pressure -Blood pressures are overall better today -Continue to monitor for antihypertensive needs Tobacco abuse -Patient quit 2 weeks ago -Nicotine patches available -Encouraged ongoing cessation DVT prophylaxis -Enoxaparin 40 mg daily CODE STATUS -Full code as verified on admission Charges/Coding Visit Charges Inpatient E&M: 12741 Subs Hosp L2
--- NOTE | 2025-01-22 07:36 | PN_ITS ---
Subjective Subjective Patient was seen this morning for follow up on his right foot. He is resting in bed watching TV. He has no new complaints, WBC normal today, no fever. Objective Data Objective Data Vital Signs: Vital Signs Temp Pulse Resp BP Pulse Ox O2 Del Method 98 F 85 16 128/73 H 97 Room Air 01/22/25 02:01 01/22/25 02:01 01/22/25 02:01 01/22/25 02:01 01/22/25 02:01 01/22/25 02:01 Oxygen Delivery Method Room Air Weight: 75.9 kg Body Mass Index (BMI) 23.3 Intake & Output: Intake and Output for Last 24 Hours 01/20/25 01/21/25 01/22/25 23:59 23:59 23:59 Intake Total 1855.00 / 1855.00 314.75 / 314.75 Output Total 700 / 700 450 / 450 Balance 1155.00 / 1155.00 -135.25 / -135.25 Lab / Micro Data 01/22/25 05:20 01/22/25 05:20 Labs: Laboratory Results - last 24 hr 01/21/25 11:00: WBC 12.5 H, RBC 4.42 L, Hgb 13.0, Hct 38.5 L, MCV 87.1, MCH 29.4, MCHC 33.8, RDW Std Deviation 43.8, RDW Coeff of Arjun 13.6, Plt Count 421, MPV 9.0, Immature Gran % (Auto) 0.500, Neut % (Auto) 76.4 H, Lymph % (Auto) 13.7 L, [place] % (Auto) 8.2, Eos % (Auto) 0.9, Baso % (Auto) 0.3, Absolute Neuts (auto) 9.6 H, Absolute Lymphs (auto) 1.71, Nucleated RBC % 0, ESR 88 H, Sodium 130 L, Potassium 4.6, Chloride 94 L, Carbon Dioxide 26.9, Anion Gap 9, BUN 12, Creatinine 0.80, Estim Creat Clear Calc 108.51, Est GFR (MDRD) Non-Af 103, BUN/Creatinine Ratio 15.4, Glucose 310 H, Lactic Acid 1.0, Calcium 9.2, C-React Prot Ext Range 147.00 H 01/21/25 16:29: POC Glucose 191 H 01/21/25 20:45: POC Glucose 179 H 01/22/25 05:20: WBC 8.9, RBC 4.09 L, Hgb 11.9 L, Hct 35.6 L, MCV 87.0, MCH 29.1, MCHC 33.4, RDW Std Deviation 43.3, RDW Coeff of Arjun 13.6, Plt Count 398, MPV 9.0, Immature Gran % (Auto) 0.600, Neut % (Auto) 68.5, Lymph % (Auto) 20.0, [place] % (Auto) 8.6, Eos % (Auto) 1.9, Baso % (Auto) 0.4, Absolute Neuts (auto) 6.1, Absolute Lymphs (auto) 1.79, Nucleated RBC % 0, Sodium 135, Potassium 4.1, Chloride 101, Carbon Dioxide 23.9, Anion Gap 10, BUN 8, Creatinine 0.63 L, Estim Creat Clear Calc 137.78, Est GFR (MDRD) Non-Af 111, BUN/Creatinine Ratio 11.9, G lucose 158 H, Hemoglobin A1c 12.2, Calcium 8.9, Phosphorus 3.2, Magnesium 2.0, Total Bilirubin 0.27, AST 10, ALT 12, Alkaline Phosphatase 99, Total Protein 7.2, Albumin 3.2 L, Globulin 4.0, Albumin/Globulin Ratio 0.8 L 01/22/25 06:08: POC Glucose 133 H Micro: Microbiology 01/21/25 13:01 Wound - Right Foot Gram Stain - Final 01/21/25 13:01 Wound - Right Foot Skin and Soft Tissue MRSA/MSSA (PCR - Final Staphylococcus aureus Radiography Diagnostic Testing: Radiology Impression Foot X-Ray 01/21/25 10:53 IMPRESSION: No obvious radiographic evidence of osteomyelitis. However, if clinical suspicion remains high, further evaluation with 3 phase bone scan or MRI is recommended. Reading Location: [facility] Lower Extremity MRI 01/21/25 15:39 IMPRESSION: Diffuse abnormal edema/enhancement of the mid to distal right foot, concerning for cellulitis/infection. There is probable osteomyelitis involving the proximal phalanx right 1st toe as well as the distal 1st metatarsal. There are soft tissue wounds of the dorsal and plantar soft tissues as well as a sinus tract extending to the medial skin surface of the distal right foot. There are peripherally enhancing probable abscesses of the dorsal and plantar aspects of the right foot near the 1st MTP joint, greatest at the plantar aspect. The suspected plantar abscess near the 1st MTP joint appears to extend to and partially involve the sheath or tendon of the flexor hallucis longus. Reading Location: [facility] Physical Exam Const alert, oriented x3 and no apparent distress Constitutional Narrative: Right foot: ulcer sub 1st met head, open incision dorsal and medial 1st MTPJ, there is some purulence but much less than yesterday, erythema and edema is improved, no visible abscess, no maloder, no streaking - overall foot appears improved today, no evidence of acute ischemia, pedal pulses intact, no POP or pain on ROM to foot or ankle. Calf soft and supple with no calf pain bilateral. Assessment & Plan Assessment/Plan (1) Cellulitis of foot, right: (2) Diabetic polyneuropathy: (3) Type 2 diabetes mellitus with foot ulcer: PLAN: Plan Evaluation performed. Reviewed diagnostic data. Reviewed right foot MRI images and radiology report. There is evidence of osteomyelitis to right 1st toe and distal 1st metatarsal, and abscess. This was discussed with patient. Today clinically his right foot does appear improved. Bedside debridement and I+D was completed. Discussed options for osteomyelitis and remaining infection - discussed antibiotics, wound care, and surgical options (amputation). He would like to proceed with attempts at limb salvage at this time, clinically foot is improved today, at this time we can continue to monitor and treat without surgery but he understands we may need to proceed with amputation. Ordered LEAS for further evaluation of LE arterial flow. A culture of right foot wound has been obtained and results pending - patient is on Vancomycin and Zosyn. No weightbearing right foot. Keep right foot elevated. Podiatry will continue to follow
--- NOTE | 2025-01-22 08:29 | WOUNDNOTE ---
Dr Staples had been in this am to see patient. dressing was changed. will plan to change dressing again this afternoon.
[2025-01-22 09:07] VITALS: BP 107/69; PULSE 79; RESP 18; TEMP 36.9; O2SAT 97
[2025-01-22] MEDS: Enoxaparin 40 MG/0.4 ML Syringe SC (09:15)
--- NOTE | 2025-01-22 10:16 | PCM.CONS.GEN ---
Assessment & Plan Assessment/Plan (1) Cellulitis of foot, right: PLAN: Diabetic foot infection with osteo - wound cx pending, podiatry following. PCR (+) MSSA. Cont empiric vanc/zosyn. Will follow, thank you (2) Diabetic polyneuropathy: (3) Osteomyelitis: HPI Consult Data Date of Consult: 01/22/25 HPI Narrative Reason for Consultation: foot infection HPI Narrative: MIKI COLMENARES, is a 59 M with DM neuropathy, presented with one week R heel progressive wound infection with redness, swelling, mild drainage. No pain. Did have some associated nausea and loss of appetite. No known inciting events. No recent abx. Came to ED, admitted on vanc/zosyn, feeling better this AM. Had bedside I&D by Dr. Staples. Full ROS performed and neg except as noted above. [facility] Medical History Osteoarthritis Pulmonary embolism Family history not obtainable due to adoption Proteinuria Migraine variant, intractable Injury of left deep peroneal nerve Hyperlipidemia Diabetes mellitus type 2, uncomplicated Acute venous embolism and thrombosis of deep vessels of distal lower extremity Home Medications ?Medication ?Instructions ?Recorded ?Last Taken ?Type insulin glargine 100 unit/mL (3 22 units subcut QHS diabetes 12/19/19 01/20/25 History mL) subcutaneous pen gabapentin 300 mg capsule 600 mg PO BID 05/30/22 01/21/25 History insulin lispro 100 unit/mL 10 unit subcut TID 05/30/22 Unknown History subcutaneous solution (Humalog U-100 Insulin) acetaminophen 325 mg tablet 650 mg PO Q12H PRN pain 01/21/25 01/21/25 History buprenorphine HCl 450 mcg buccal 450 mcg buccal Q12H 01/21/25 01/21/25 History film ([place]) Allergy/AdvReac Type Severity Reaction Status Date / Time cyclobenzaprine HCl (From AdvReac anxious Verified 01/21/25 10:28 Flexeril) Family History (Updated 01/21/25 @ 19:[address] Miroslava Sherman DO) Other COPD (chronic obstructive pulmonary disease) Diabetes Hypertension Surgical History (Updated 01/21/25 @ 19:[address] Miroslava Sherman DO) H/O hernia repair History of total knee replacement (TKR) Social History (Updated 01/21/25 @ 19:[address] Miroslava Sherman, DO) household members: spouse housing: house Smoking Status: Former smoker quit date: 01/07/25 Tobacco: How many years used: 15 alcohol intake: current alcohol intake frequency: a few times a month Physical Exam Const alert, oriented x3 and no apparent distress General Appearance: cooperative HEENT normocephalic and head/scalp atraumatic Eyes PERRL and EOMs intact bilaterally Neck supple and No nodes Resp normal air movement and clear to auscultation bilaterally Cardio regular rate and regular rhythm GI soft to palpation, non-tender and non-distended Extremity General Extremity: Negative for edema Skin Skin Narrative: R foot wrapped Neuro CN's II-XII intact bilaterally Lab / Micro Data Attestation: I reviewed the patient's lab results. 01/22/25 05:20 01/22/25 05:20 Labs: Laboratory Results - last 24 hr 01/21/25 11:00: WBC 12.5 H, RBC 4.42 L, Hgb 13.0, Hct 38.5 L, MCV 87.1, MCH 29.4, MCHC 33.8, RDW Std Deviation 43.8, RDW Coeff of Arjun 13.6, Plt Count 421, MPV 9.0, Immature Gran % (Auto) 0.500, Neut % (Auto) 76.4 H, Lymph % (Auto) 13.7 L, [place] % (Auto) 8.2, Eos % (Auto) 0.9, Baso % (Auto) 0.3, Absolute Neuts (auto) 9.6 H, Absolute Lymphs (auto) 1.71, Nucleated RBC % 0, ESR 88 H, Sodium 130 L, Potassium 4.6, Chloride 94 L, Carbon Dioxide 26.9, Anion Gap 9, BUN 12, Creatinine 0.80, Estim Creat Clear Calc 108.51, Est GFR (MDRD) Non-Af 103, BUN/Creatinine Ratio 15.4, Glucose 310 H, Lactic Acid 1.0, Calcium 9.2, C-React Prot Ext Range 147.00 H 01/21/25 16:29: POC Glucose 191 H 01/21/25 20:45: POC Glucose 179 H 01/22/25 05:20: WBC 8.9, RBC 4.09 L, Hgb 11.9 L, Hct 35.6 L, MCV 87.0, MCH 29.1, MCHC 33.4, RDW Std Deviation 43.3, RDW Coeff of Arjun 13.6, Plt Count 398, MPV 9.0, Immature Gran % (Auto) 0.600, Neut % (Auto) 68.5, Lymph % (Auto) 20.0, [place] % (Auto) 8.6, Eos % (Auto) 1.9, Baso % (Auto) 0.4, Absolute Neuts (auto) 6.1, Absolute Lymphs (auto) 1.79, Nucleated RBC % 0, Sodium 135, Potassium 4.1, Chloride 101, Carbon Dioxide 23.9, Anion Gap 10, BUN 8, Creatinine 0.63 L, Estim Creat Clear Calc 137.78, Est GFR (MDRD) Non-Af 111, BUN/Creatinine Ratio 11.9, Glucose 158 H, Hemoglobin A1c 12.2, Calcium 8.9, Phosphorus 3.2, Magnesium 2.0, Total Bilirubin 0.27, AST 10, ALT 12, Alkaline Phosphatase 99, Total Protein 7.2, Albumin 3.2 L, Globulin 4.0, Albumin/Globulin Ratio 0.8 L 01/22/25 06:08: POC Glucose 133 H Micro: Microbiology 01/21/25 13:01 Wound - Right Foot Gram Stain - Final 01/21/25 13:01 Wound - Right Foot Skin and Soft Tissue MRSA/MSSA (PCR - Final Staphylococcus aureus Imaging Radiology Impression Foot X-Ray 01/21/25 10:53 IMPRESSION: No obvious radiographic evidence of osteomyelitis. However, if clinical suspicion remains high, further evaluation with 3 phase bone scan or MRI is recommended. Reading Location: [facility] Lower Extremity MRI 01/21/25 15:39 IMPRESSION: Diffuse abnormal edema/enhancement of the mid to distal right foot, concerning for cellulitis/infection. There is probable osteomyelitis involving the proximal phalanx right 1st toe as well as the distal 1st metatarsal. There are soft tissue wounds of the dorsal and plantar soft tissues as well as a sinus tract extending to the medial skin surface of the distal right foot. There are peripherally enhancing probable abscesses of the dorsal and plantar aspects of the right foot near the 1st MTP joint, greatest at the plantar aspect. The suspected plantar abscess near the 1st MTP joint appears to extend to and partially involve the sheath or tendon of the flexor hallucis longus. Reading Location: [facility]
[2025-01-22 11:30] LABS: Bedside Glucose 168 mg/dL (74-106)
[2025-01-22] MEDS: Insulin Lispro 100 UNIT/ML INSULN.PEN SC ×3 (12:27→23:03)
[2025-01-22 12:47] LABS: Vancomycin, Trough Level 14.8 ug/mL (5.0-15.0)
--- NOTE | 2025-01-22 13:07 | WOUNDNOTE ---
wound photo: right foot
--- NOTE | 2025-01-22 13:08 | WOUNDNOTE ---
wound photo: right plantar foot
--- NOTE | 2025-01-22 13:08 | WOUNDNOTE ---
wound photo: right dorsal foot
--- NOTE | 2025-01-22 13:40 | PCM.RX.CS ---
Consult Antibiotic Management Pharmacy has been consulted to manage selected antibiotic: Vancomycin Type of Intervention Type of Consult: Follow-up Suspected Infection Suspected Infection: Skin/Soft tissue Prior Doses of Antibiotics Prior Doses of Antibiotics Received/Current Regimen: Vancomycin 1000 mg Q8H last dose given 01/22 @ 0323 Labs Labs: Sodium 135 mmol/L (133-145) 01/22/25 05:20 Potassium 4.1 mmol/L (3.3-5.1) 01/22/25 05:20 Chloride 101 mmol/L (98-108) 01/22/25 05:20 Carbon Dioxide 23.9 mmol/L (21.0-32.0) 01/22/25 05:20 Anion Gap 10 (5-15) 01/22/25 05:20 BUN 8 mg/dL (4-19) 01/22/25 05:20 Creatinine 0.63 mg/dL (0.70-1.20) L 01/22/25 05:20 Est GFR (MDRD) Non-Af 111 (>60) 01/22/25 05:20 BUN/Creatinine Ratio 11.9 RATIO (10-20) 01/22/25 05:20 Glucose 158 mg/dL (70-99) H 01/22/25 05:20 Vancomycin Trough 14.8 ug/mL (5.0-15.0) 01/22/25 10:12 Microbiology Microbiology: Microbiology 01/21/25 13:01 Wound - Right Foot Gram Stain - Final 01/21/25 13:01 Wound - Right Foot Wound Culture - Preliminary 01/21/25 13:01 Wound - Right Foot Skin and Soft Tissue MRSA/MSSA (PCR - Final Staphylococcus aureus Dosing Weight Weight used for dosin kg Estimated Creatinine Clearance Estimated Creatinine Clearance: ~ 138 Goal Trough Goal Trough: 15-20 mcg/mL Pharmacy Plan for Drug Dosing Pharmacy Plan for Drug Dosing: Vancomycin trough = 14.8, continue current dosing, trough tomorrow. Pharmacy Service will continue to monitor and adjust dosing as required. Follow-Up Labs Follow-Up Labs: Trough: Vancomycin Date/Time Labs Ordered Labs to be done on [date and time ordered]: 01/23 @ 0105
[2025-01-22 15:49] VITALS: BP 124/78; PULSE 85; RESP 18; TEMP 37.1; O2SAT 98
[2025-01-22 16:49] LABS: Bedside Glucose 221 mg/dL (74-106)
[2025-01-22 20:53] VITALS: BP 136/84; PULSE 79; RESP 15; TEMP 36.8; O2SAT 98
[2025-01-22] MEDS: Insulin Glargine-YFGN 100 UNIT/ML Pen 22 UNIT SC (23:04)
[2025-01-22 23:23] LABS: Bedside Glucose 279 mg/dL (74-106)
[2025-01-23 03:38] VITALS: BP 104/63; PULSE 83; RESP 15; TEMP 36.6; O2SAT 95
[2025-01-23] MEDS: Vancomycin IV 1,000 MG/200 ML BAG 200 MG IV ×3 (05:19→21:14)
[2025-01-23] MEDS: Gabapentin 600 MG Tablet PO ×2 (05:47→18:17)
[2025-01-23] MEDS: Acetaminophen 325 MG Tablet 650 MG PO ×2 (05:47→18:17)
[2025-01-23 06:00] VITALS: BMI 23.3
[2025-01-23] MEDS: Piperacil/Tazobactam 3.375 GM in 0.9% Normal Saline (50mL MB+) 50 ML IV ×3 (06:31→21:17)
[2025-01-23] MEDS: Insulin Lispro 100 UNIT/ML INSULN.PEN SC ×4 (06:35→16:15)
[2025-01-23 06:55] LABS: Bedside Glucose 193 mg/dL (74-106)
--- NOTE | 2025-01-23 09:19 | PCM.PN.HOSP ---
Reason for Visit Reason for Visit: Right diabetic foot wound Subjective Subjective Patient states he did not sleep well last night. Denies any significant pain. Discussed with Dr. Staples and plan is for probable discharge on Saturday as long as his foot continues to look improved. Will likely need IV antibiotics at discharge but will need await ID input. Discussed with patient. This may be problematic as he does not have a primary care physician and home health care will be difficult to set up without PCP. Objective Data Objective Data Vital Signs: Vital Signs Temp Pulse Resp BP Pulse Ox O2 Del Method 97.9 F 83 15 104/63 95 Room Air 01/23/25 03:38 01/23/25 03:38 01/23/25 03:38 01/23/25 03:38 01/23/25 03:38 01/23/25 07:44 Oxygen Delivery Method Room Air Weight: 75.8 kg Body Mass Index (BMI) 23.3 Intake & Output: Intake and Output for Last 24 Hours 01/21/25 01/22/25 01/23/25 23:59 23:59 23:59 Intake Total 1855.00 / 1855.00 814.75 / 814.75 750 / 750 Output Total 700 / 700 2100 / 2100 2000 / 2000 Balance 1155.00 / 1155.00 -1285.25 / -1285.25 -1250 / -1250 Lab / Micro Data 01/22/25 05:20 01/22/25 05:20 Labs: Laboratory Results - last 24 hr 01/22/25 10:12: Vancomycin Trough 14.8 01/22/25 11:07: POC Glucose 168 H 01/22/25 16:28: POC Glucose 221 H 01/22/25 23:01: POC Glucose 279 H 01/23/25 06:33: POC Glucose 193 H Micro: Microbiology 01/21/25 13:01 Wound - Right Foot Gram Stain - Final 01/21/25 13:01 Wound - Right Foot Wound Culture - Preliminary 01/21/25 13:01 Wound - Right Foot Skin and Soft Tissue MRSA/MSSA (PCR - Final Staphylococcus aureus Radiography Diagnostic Testing: Radiology Impression Extremity Arterial Study 01/21/25 15:33 Interpretation Summary Triphasic Doppler waveforms are noted at ankle level bilaterally. Pulse-volume recordings appear satisfactory at all levels bilaterally. Resting ankle-brachial indices are normal bilaterally. Digital-brachial indices are normal bilaterally. There is no evidence of significant arterial occlusive disease in the lower extremities bilaterally. Ordering Physician: Yehuda Staples Performed By: Ching Rodrigues RVT Physical Exam Const alert, oriented x3, no apparent distress, average body habitus and well nourished Constitutional Narrative: Very pleasant, middle-aged, white male, lying in bed flat, appears comfortable currently, nontoxic General Appearance: cooperative HEENT head/scalp atraumatic Head and Scalp: normocephalic Psych Psych Narrative: Affect is a bit flat today or patient appears tired, very pleasant, eye contact is good and patient interacts appropriately Assessment & Plan Assessment/Plan (1) Diabetic foot ulcer: (2) Hyperglycemia due to type 2 diabetes mellitus: (3) Leukocytosis: (4) Tobacco abuse: PLAN: Plan Right foot diabetic foot ulcer -MRI is suggestive of further abscess and osteomyelitis of the first toe--> current plan is watchful waiting hopeful for conservative management success -Vascular studies are still pending read but have been performed -Cultures continue to be consistent with MSSA with sensitivities pending -Continue vancomycin and Zosyn and await further ID input or sensitivities for narrowing -Patient is to be nonweightbearing until further instructed by podiatry -Podiatry is following-appreciate input--> discussed with Dr. Staples and plan is for discharge to home likely on Saturday if clinically remained stable -Wound care is following-appreciate care -ID is following appreciate input DM-2 with hyperglycemia -Hemoglobin A1c is 12.2 -Fasting blood sugar this morning is 150 -Continue 22 units at at bedtime of basal insulin -Add Humalog prandial 5 units 3 times daily -Continue SSI with Accu-Cheks as ordered -Carb controlled diet History of DVT -Provoked after knee surgery -Not currently anticoagulated -Monitor Osteoarthritis -Status post 5 total knee arthroplasties -Patient had some med failure issues but no infection -Has chronic pain and sees pain management -Continue home buprenorphine -As needed oxycodone available Neuropathy -Continue home gabapentin History of hyperlipidemia -Patient is currently not on any medication -Recommend outpatient follow-up Elevated blood pressure -Blood pressures are overall better today -Continue to monitor for antihypertensive needs Tobacco abuse -Patient quit 2 weeks ago -Nicotine patches available -Encouraged ongoing cessation DVT prophylaxis -Enoxaparin 40 mg daily CODE STATUS -Full code as verified on admission Charges/Coding Visit Charges Inpatient E&M: 55621 Subs Hosp L1
--- NOTE | 2025-01-23 10:01 | PCM.PROGNOTE ---
Subjective Subjective Patient was seen this morning for follow up on right foot. He is resting in bed, no new complaints. No fevers. Objective Data Objective Data Vital Signs: Vital Signs Temp Pulse Resp BP Pulse Ox O2 Del Method 97.9 F 83 15 104/63 95 Room Air 01/23/25 03:38 01/23/25 03:38 01/23/25 03:38 01/23/25 03:38 01/23/25 03:38 01/23/25 07:44 Oxygen Delivery Method Room Air Weight: 75.8 kg Body Mass Index (BMI) 23.3 Intake & Output: Intake and Output for Last 24 Hours 01/21/25 01/22/25 01/23/25 23:59 23:59 23:59 Intake Total 1855.00 / 1855.00 814.75 / 814.75 750 / 750 Output Total 700 / 700 2100 / 2100 1999 / 1999 Balance 1155.00 / 1155.00 -1285.25 / -1285.25 -1250 / -1250 Lab / Micro Data 01/22/25 05:20 01/22/25 05:20 Labs: Laboratory Results - last 24 hr 01/22/25 10:12: Vancomycin Trough 14.8 01/22/25 11:07: POC Glucose 168 H 01/22/25 16:28: POC Glucose 221 H 01/22/25 23:01: POC Glucose 279 H 01/23/25 06:33: POC Glucose 193 H Micro: Microbiology 01/21/25 13:01 Wound - Right Foot Gram Stain - Final 01/21/25 13:01 Wound - Right Foot Wound Culture - Preliminary 01/21/25 13:01 Wound - Right Foot Skin and Soft Tissue MRSA/MSSA (PCR - Final Staphylococcus aureus Radiography Diagnostic Testing: Radiology Impression Extremity Arterial Study 01/21/25 15:33 Interpretation Summary Triphasic Doppler waveforms are noted at ankle level bilaterally. Pulse-volume recordings appear satisfactory at all levels bilaterally. Resting ankle-brachial indices are normal bilaterally. Digital-brachial indices are normal bilaterally. There is no evidence of significant arterial occlusive disease in the lower extremities bilaterally. Ordering Physician: Yehuda Staples Performed By: Ching Rodrigues RVT Physical Exam Const alert, oriented x3 and no apparent distress Constitutional Narrative: Right foot: ulcer sub 1st met head, open incision dorsal and medial 1st MTPJ, there is some purulence but continues to be less, erythema and edema is continuing to improve, no maloder, no streaking - overall foot appears to continue to improve, no evidence of acute ischemia, pedal pulses intact, no POP or pain on ROM to foot or ankle. Calf soft and supple with no calf pain bilateral. Assessment & Plan Assessment/Plan (1) Cellulitis of foot, right: (2) Diabetic polyneuropathy: (3) Type 2 diabetes mellitus with foot ulcer: PLAN: Plan Evaluation performed. Reviewed diagnostic data. s/p bedside debridement and I+D was completed. Today clinically his right foot continues to appear improved, but will require continued antibiotics, wound care and close monitoring. We discussed options for osteomyelitis and remaining infection - discussed antibiotics, wound care, and surgical options (amputation). He would like to proceed with attempts at limb salvage at this time, clinically foot is improved today, at this time we can continue to monitor and treat without surgery but he understands we may need to proceed with surgical intervention with possible amputation. Ordered LEAS for further evaluation of LE arterial flow - reviewed results - noted to be good arterial flow to foot bilateral. A culture of right foot wound has been obtained and results showing staph aureus so far - patient is on Vancomycin and Zosyn. No weightbearing right foot. Keep right foot elevated. Podiatry will continue to follow
[2025-01-23 11:06] VITALS: BP 102/64; PULSE 86; RESP 18; TEMP 37; O2SAT 97
[2025-01-23] MEDS: Enoxaparin 40 MG/0.4 ML Syringe SC (11:08)
--- NOTE | 2025-01-23 11:20 | NURSING ---
pt assessed for primary RN no distress noted. pt states pain mild, dressing completed by Dr. Staples this a.m. call light within reach. denies all further needs.
[2025-01-23 11:38] LABS: Bedside Glucose 150 mg/dL (74-106)
[2025-01-23 14:04] LABS: Vancomycin, Trough Level 15.7 ug/mL (5.0-15.0)
--- NOTE | 2025-01-23 14:12 | PCM.RX.CS ---
Consult Antibiotic Management Pharmacy has been consulted to manage selected antibiotic: Vancomycin Type of Intervention Type of Consult: Follow-up Labs Labs: Sodium 135 mmol/L (133-145) 01/22/25 05:20 Potassium 4.1 mmol/L (3.3-5.1) 01/22/25 05:20 Chloride 101 mmol/L (98-108) 01/22/25 05:20 Carbon Dioxide 23.9 mmol/L (21.0-32.0) 01/22/25 05:20 Anion Gap 10 (5-15) 01/22/25 05:20 BUN 8 mg/dL (4-19) 01/22/25 05:20 Creatinine 0.63 mg/dL (0.70-1.20) L 01/22/25 05:20 Est GFR (MDRD) Non-Af 111 (>60) 01/22/25 05:20 BUN/Creatinine Ratio 11.9 RATIO (10-20) 01/22/25 05:20 Glucose 158 mg/dL (70-99) H 01/22/25 05:20 Vancomycin Trough 15.7 ug/mL (5.0-15.0) H 01/23/25 12:25 Microbiology Microbiology: Microbiology 01/21/25 13:01 Wound - Right Foot Gram Stain - Final 01/21/25 13:01 Wound - Right Foot Wound Culture - Preliminary Staphylococcus aureus 01/21/25 13:01 Wound - Right Foot Skin and Soft Tissue MRSA/MSSA (PCR - Final Staphylococcus aureus Pharmacy Plan for Drug Dosing Pharmacy Plan for Drug Dosing: VANCOMYCIN LEVEL RECEIVED Current Vancomycin Dose: 1000MG Q8 Number of Doses Received: 6 Vancomycin Level: 15.7 MG/DL Hours Since Last Dose: 7 Renal Function: SCr 0.63 mg/dL (01/22), CrCl 137 mL/min Renal Function Trend: stable Lab/Micro: staph in wound cx Vancomycin Plan/Comments: 7 hour trough is therapeutic (goal 15-20). Will continue current dosing and order a trough in 2 days per policy. Pending Level: 01/25/25 @ 1230 Pharmacy Service will continue to monitor and adjust dosing as required.
[2025-01-23 14:17] VITALS: BP 129/83; PULSE 92; RESP 17; TEMP 36.8; O2SAT 97
[2025-01-23] MEDS: 0.9% Saline Lock 10 ML Syringe IV ×2 (14:20→21:09)
[2025-01-23 16:59] LABS: Bedside Glucose 262 mg/dL (74-106)
[2025-01-23] MEDS: Senna/Docusate Sodium 1 Tablet 2 TABLET PO (20:03)
[2025-01-23 21:03] VITALS: BP 130/85; PULSE 86; RESP 18; TEMP 37.1; O2SAT 96
[2025-01-23] MEDS: Insulin Glargine-YFGN 100 UNIT/ML Pen 22 UNIT SC (21:07)
[2025-01-23] MEDS: 0.9% Normal Saline (100mL Bag) 100 ML 15 ML IV (21:13)
[2025-01-23 22:27] LABS: Bedside Glucose 125 mg/dL (74-106)
[2025-01-23 23:19] VITALS: BMI 22.6
[2025-01-24] MEDS: Vancomycin IV 1,000 MG/200 ML BAG 200 MG IV ×2 (05:05→13:35)
[2025-01-24] MEDS: Piperacil/Tazobactam 3.375 GM in 0.9% Normal Saline (50mL MB+) 50 ML IV ×2 (05:05→13:35)
[2025-01-24] MEDS: 0.9% Saline Lock 10 ML Syringe IV (05:05)
[2025-01-24] MEDS: Gabapentin 600 MG Tablet PO ×2 (06:40→18:02)
[2025-01-24] MEDS: Acetaminophen 325 MG Tablet 650 MG PO ×2 (06:45→18:17)
[2025-01-24] MEDS: Enoxaparin 40 MG/0.4 ML Syringe SC (07:50)
[2025-01-24] MEDS: Insulin Lispro 100 UNIT/ML INSULN.PEN SC ×5 (07:50→18:03)
[2025-01-24 08:06] VITALS: BP 104/68; PULSE 87; RESP 16; TEMP 36.7; O2SAT 95
[2025-01-24] MEDS: Senna/Docusate Sodium 1 Tablet 2 TABLET PO ×2 (08:28→23:07)
--- NOTE | 2025-01-24 08:34 | PCM.PROGNOTE ---
Subjective Subjective Patient was seen this morning for follow up on right foot infection. He is resting in bed, he relates he slept better last night - relates he had few interruptions. He denies f/c/n/v. Objective Data Objective Data Vital Signs: Vital Signs Temp Pulse Resp BP Pulse Ox O2 Del Method 98.1 F 87 16 104/68 95 Room Air 01/24/25 08:06 01/24/25 08:06 01/24/25 08:06 01/24/25 08:06 01/24/25 08:06 01/24/25 08:06 Oxygen Delivery Method Room Air Weight: 73.5 kg Body Mass Index (BMI) 22.6 Intake & Output: Intake and Output for Last 24 Hours 01/22/25 01/23/25 01/24/25 23:59 23:59 23:59 Intake Total 814.75 / 814.75 1450.25 / 1450.25 250 / 250 Output Total 2100 / 2100 4200 / 4200 Balance -1285.25 / -1285.25 -2749.75 / -2749.75 250 / 250 Lab / Micro Data 01/22/25 05:20 01/22/25 05:20 Labs: Laboratory Results - last 24 hr 01/23/25 11:14: POC Glucose 150 H 01/23/25 12:25: Vancomycin Trough 15.7 H 01/23/25 16:11: POC Glucose 262 H 01/23/25 21:05: POC Glucose 125 H Micro: Microbiology 01/21/25 11:14 Blood Culture (Wb) - Anticubital Right Blood Culture - Preliminary No growth in 48 hours. 01/21/25 11:00 Blood Culture (Wb) - Anticubital Left Blood Culture - Preliminary No growth in 48 hours. 01/21/25 13:01 Wound - Right Foot Gram Stain - Final 01/21/25 13:01 Wound - Right Foot Wound Culture - Preliminary Staphylococcus aureus 01/21/25 13:01 Wound - Right Foot Skin and Soft Tissue MRSA/MSSA (PCR - Final Staphylococcus aureus Physical Exam Const alert, oriented x3 and no apparent distress Constitutional Narrative: Right foot: ulcer sub 1st met head, open incision dorsal and medial 1st MTPJ, there is trace purulence from plantar wound but continues to be less every day, erythema and edema much improved and continues to improve, no maloder, no streaking - overall foot improved, no evidence of acute ischemia, pedal pulses intact, no POP or pain on ROM to foot or ankle. Calf soft and supple with no calf pain bilateral. Assessment & Plan Assessment/Plan (1) Cellulitis of foot, right: (2) Diabetic polyneuropathy: (3) Type 2 diabetes mellitus with foot ulcer: PLAN: Plan Evaluation performed. Reviewed diagnostic data. s/p bedside debridement and I+D has been completed. Today clinically his right foot again appears further improved, but will require continued antibiotics, wound care and close monitoring. We discussed options for osteomyelitis and remaining infection - discussed antibiotics, wound care, and surgical options (amputation). He would like to proceed with attempts at limb salvage at this time, clinically foot is improved today, at this time we can continue to monitor and treat without surgery but he understands we may need to proceed with surgical intervention with possible amputation. Reviewed LEAS results - noted to be good arterial flow to foot bilateral. A culture of right foot wound has been obtained and results showing staph aureus (MRSA negative) - patient is on Vancomycin and Zosyn. Infectious Disease on consult. No weightbearing right foot. Keep right foot elevated. Podiatry will continue to follow
--- NOTE | 2025-01-24 08:58 | PCM.PN.HOSP ---
Reason for Visit Reason for Visit: Right foot wound Subjective Subjective No issues overnight. Patient states he did not sleep well. Just tired. He does ask for some suggestions for primary care physician. He states he keeps seeing people he either does not like or retire after he finds them. Like somebody he is going to stay more long-term and does not care for male or female. Objective Data Objective Data Vital Signs: Vital Signs Temp Pulse Resp BP Pulse Ox O2 Del Method 98.1 F 87 16 104/68 95 Room Air 01/24/25 08:06 01/24/25 08:06 01/24/25 08:06 01/24/25 08:06 01/24/25 08:06 01/24/25 08:06 Oxygen Delivery Method Room Air Weight: 73.5 kg Body Mass Index (BMI) 22.6 Intake & Output: Intake and Output for Last 24 Hours 01/22/25 01/23/25 01/24/25 23:59 23:59 23:59 Intake Total 814.75 / 814.75 1450.25 / 1450.25 250 / 250 Output Total 2100 / 2100 4200 / 4200 Balance -1285.25 / -1285.25 -2749.75 / -2749.75 250 / 250 Lab / Micro Data 01/22/25 05:20 01/22/25 05:20 Labs: Laboratory Results - last 24 hr 01/23/25 11:14: POC Glucose 150 H 01/23/25 12:25: Vancomycin Trough 15.7 H 01/23/25 16:11: POC Glucose 262 H 01/23/25 21:05: POC Glucose 125 H Micro: Microbiology 01/21/25 11:14 Blood Culture (Wb) - Anticubital Right Blood Culture - Preliminary No growth in 48 hours. 01/21/25 11:00 Blood Culture (Wb) - Anticubital Left Blood Culture - Preliminary No growth in 48 hours. 01/21/25 13:01 Wound - Right Foot Gram Stain - Final 01/21/25 13:01 Wound - Right Foot Wound Culture - Preliminary Staphylococcus aureus 01/21/25 13:01 Wound - Right Foot Skin and Soft Tissue MRSA/MSSA (PCR - Final Staphylococcus aureus Physical Exam Const alert, oriented x3, no apparent distress, average body habitus, healthy appearing and well nourished Constitutional Narrative: Very pleasant, middle-aged, white male, lying in bed flat awake but trying to follow sleep, appears comfortable currently, nontoxic General Appearance: cooperative HEENT normocephalic, head/scalp atraumatic and moist oral mucous membranes Resp normal respiratory effort, no retractions, no use of accessory muscles and clear to auscultation bilaterally Resp Narrative: Diffusely diminished but clear Auscultation: Negative for rales, rhonchi or wheezes Cardio regular rate, regular rhythm, S1 normal heart sound, S2 normal heart sound, no murmurs, no rub, no gallops and no clicks GI normal to inspection, nondistended, normoactive bowel sounds, soft to palpation and non-tender Extremity no clubbing, cyanosis or edema Extremity Narrative: Right lower extremity with postoperative dressing in place-wound care pictures reviewed Neuro oriented x3, moves all extremities and no focal motor deficits Neuro Narrative: Decreased sensation bilateral feet Speech: speech normal Psych affect normal Psych Narrative: Pleasant, interacts appropriately Assessment & Plan Assessment/Plan (1) Diabetic foot ulcer: (2) Hyperglycemia due to type 2 diabetes mellitus: (3) Leukocytosis: (4) Tobacco abuse: PLAN: Plan Right foot diabetic foot ulcer -MRI is suggestive of further abscess and osteomyelitis of the first toe--> current plan is watchful waiting hopeful for conservative management success -Vascular studies with no significant -Cultures show MSSA with denny sensitivity except of tetracyclines -Discontinue vancomycin and Zosyn and narrow to Ancef 1 g every 6 hours -Patient is to be nonweightbearing until further instructed by podiatry -Podiatry is following-appreciate input--> Dr. Staples suspect patient will be stable for discharge on Thursday 01/25 -Wound care is following-appreciate care -ID is following appreciate input DM-2 with hyperglycemia -Hemoglobin A1c is 12.2 -Blood sugar control is currently good -Continue 22 units at at bedtime of basal insulin -Continue Humalog 5 units with meals -Continue SSI with Accu-Cheks as ordered -Carb controlled diet -May benefit from following up with endocrinology at discharge. History of DVT -Provoked after knee surgery -Not currently anticoagulated -Monitor Osteoarthritis -Status post 5 total knee arthroplasties -Patient had some med failure issues but no infection -Has chronic pain and sees pain management -Continue home buprenorphine -As needed oxycodone available Neuropathy -Continue home gabapentin History of hyperlipidemia -Patient is currently not on any medication -Recommend outpatient follow-up Elevated blood pressure -Resolved without therapy Tobacco abuse -Patient quit 2 weeks ago -Nicotine patches available -Encouraged ongoing cessation DVT prophylaxis -Enoxaparin 40 mg daily CODE STATUS -Full code as verified on admission Charges/Coding Visit Charges Inpatient E&M: 17530 Subs Hosp L1
--- NOTE | 2025-01-24 10:09 | NURSING ---
downtime documentation 01/24/25 12am until 7am
[2025-01-24 10:35] LABS: Bedside Glucose 159 mg/dL (74-106)
[2025-01-24 12:04] LABS: Bedside Glucose 112 mg/dL (74-106)
[2025-01-24 14:04] VITALS: BP 105/69; PULSE 87; RESP 16; TEMP 36.6; O2SAT 98
[2025-01-24 16:29] LABS: Bedside Glucose 208 mg/dL (74-106)
[2025-01-24] MEDS: Cefazolin 1 GM/50 ML BAG IV ×2 (18:02→22:59)
[2025-01-24 22:53] VITALS: BP 115/72; PULSE 81; RESP 18; TEMP 36.6; O2SAT 97
[2025-01-24] MEDS: Insulin Glargine-YFGN 100 UNIT/ML Pen 22 UNIT SC (22:57)
[2025-01-24] MEDS: 0.9% Normal Saline (100mL Bag) 100 ML 15 ML IV (23:01)
[2025-01-25 00:22] LABS: Bedside Glucose 120 mg/dL (74-106)
[2025-01-25 05:42] VITALS: BP 126/83; PULSE 87; RESP 16; TEMP 36.6; O2SAT 98
[2025-01-25] MEDS: 0.9% Saline Lock 10 ML Syringe IV ×2 (05:43→11:34)
[2025-01-25] MEDS: Cefazolin 1 GM/50 ML BAG IV ×3 (05:43→18:12)
[2025-01-25] MEDS: Acetaminophen 325 MG Tablet 650 MG PO ×2 (06:31→18:17)
[2025-01-25] MEDS: Gabapentin 600 MG Tablet PO ×2 (06:32→18:11)
[2025-01-25 07:08] LABS: Hematocrit 38.6 % (40-54); Mean Corp Hgb Conc 33.7 g/dL (32-36); Mean Corpuscular Hgb 29.1 pg (27.0-32.0); Mean Corpuscular Volume 86.5 fL (80-94); Mean Platelet Vol. 8.7 fl (6.2-12.0); Platelet Count 463 K/mm3 (150-450); RBC Distribution Width CV 13.7 % (11.6-14.6); RBC Distribution Width SD 43.2 fl (35.1-43.9); Red Blood Count 4.46 M/mm3 (4.6-6.2); White Blood Count 8.5 K/mm3 (4.4-11.0)
[2025-01-25 07:31] LABS: Bedside Glucose 155 mg/dL (74-106)
[2025-01-25 07:42] LABS: Anion Gap 13 (5-15); BUN 14 mg/dL (4-19); BUN/Creat Ratio 18.1 RATIO (10-20); Calcium,Total 9.4 mg/dL (7.6-11.0); Carbon Dioxide 19.4 mmol/L (21.0-32.0); Chloride 102 mmol/L (98-108); Creatinine, Serum 0.76 mg/dL (0.70-1.20); EST Glomerular Filtration Rate 105 (>60); Estimated Creatinine Clearance 111.49 ml/min (50-250); Glucose 157 mg/dL (70-99); Potassium 4.3 mmol/L (3.3-5.1); Sodium Level 134 mmol/L (133-145)
[2025-01-25] MEDS: Insulin Lispro 100 UNIT/ML INSULN.PEN SC ×4 (09:12→16:47)
[2025-01-25] MEDS: Enoxaparin 40 MG/0.4 ML Syringe SC (09:13)
[2025-01-25 09:37] VITALS: BP 112/75; PULSE 82; RESP 16; TEMP 36.9; O2SAT 96
--- NOTE | 2025-01-25 11:32 | CASEMGMT ---
Dr. Meneses states that the pt may be able to DC today. is aware that the pt does not have a PCP so HHC would not be an option unless the ID doctor is willing to follow HH orders (if the pt requires IV ATBs after DC). made aware that the pt could utilize the [facility] OP Infusion center if the IV is only needed once per day. Dr Meneses anticipates that the pt will go home on PO ATBs. However, ID consult is pending today (Dr. Pickett is on now per MS rounds). Pt does not have an order for a PICC at this time. Dr. Meneses also states that the pt will receive new DM Rxs @ the time of DC and will utilize WCP in the case that the medications are expensive. RN CM to pt room at this time. Pt RN @ bedside. Pt resting comfortably in bed and is A&Ox4. Pt educated on the tentative DC plan. Pt states that he feels safe returning home once he is medically ready. Pt states that he is OK and prefers [facility]CP @ DC. Pt denies any concerns at this time. CM to follow. Tentative plan: DC home once medically ready, follow for IV ATB needs and Rx costs.
[2025-01-25 12:19] LABS: Bedside Glucose 95 mg/dL (74-106)
--- NOTE | 2025-01-25 13:00 | PN.ID_ITS ---
ID ID: Route of nutrition/ use of supplements: [] Nutritional Intake: [] IV Site: [] Ambriz Catheter: [] Patient ambulating with crutches. Tolerating cefazolin well. Microbiology data reviewed. Overall clinically stable. No gastrointestinal distress. No cardio pulmonary symptoms. On exam he is alert and responsive does not appear toxic heart exam S1-S2 abdomen soft nontender right foot dressings are in place. Assessment & Plan Assessment/Plan (1) Cellulitis of foot, right: PLAN: MSSA isolated from the right foot culture data. On cefazolin and overall clinically stable. Duration and route of antimicrobial therapy will depend on the appearance of the foot and the extent of the right foot infection.
--- NOTE | 2025-01-25 14:25 | PN_ITS ---
Subjective Subjective Patient was seen today for follow up on his right foot. He has no complaints of f/c/n/v. Objective Data Objective Data Vital Signs: Vital Signs Temp Pulse Resp BP Pulse Ox O2 Del Method 98.4 F 82 16 112/75 96 Room Air 01/25/25 09:37 01/25/25 09:37 01/25/25 09:37 01/25/25 09:37 01/25/25 09:37 01/25/25 09:37 Oxygen Delivery Method Room Air Weight: 73.5 kg Body Mass Index (BMI) 22.6 Intake & Output: Intake and Output for Last 24 Hours 01/23/25 01/24/25 01/25/25 23:59 23:59 23:59 Intake Total 1450.25 / 1450.25 1325.79 / 1325.79 622.25 / 622.25 Output Total 4200 / 4200 1400 / 1400 800 / 800 Balance -2749.75 / -2749.75 -74.21 / -74.21 -177.75 / -177.75 Lab / Micro Data 01/25/25 06:32 01/25/25 06:32 Labs: Laboratory Results - last 24 hr 01/24/25 16:01: POC Glucose 208 H 01/24/25 22:56: POC Glucose 120 H 01/25/25 06:30: POC Glucose 155 H 01/25/25 06:32: WBC 8.5, RBC 4.46 L, Hgb 13.0, Hct 38.6 L, MCV 86.5, MCH 29.1, MCHC 33.7, RDW Std Deviation 43.2, RDW Coeff of Arjun 13.7, Plt Count 463 H, MPV 8.7, Sodium 134, Potassium 4.3, Chloride 102, Carbon Dioxide 19.4 L, Anion Gap 13, BUN 14, Creatinine 0.76, Estim Creat Clear Calc 111.49, Est GFR (MDRD) Non- Af 105, BUN/Creatinine Ratio 18.1, Glucose 157 H, Calcium 9.4 01/25/25 11:32: POC Glucose 95 Micro: Microbiology 01/21/25 13:01 Wound - Right Foot Gram Stain - Final 01/21/25 13:01 Wound - Right Foot Wound Culture - Preliminary Staphylococcus aureus 01/21/25 13:01 Wound - Right Foot Skin and Soft Tissue MRSA/MSSA (PCR - Final Staphylococcus aureus 01/21/25 11:14 Blood Culture (Wb) - Anticubital Right Blood Culture - Preliminary No growth in 48 hours. 01/21/25 11:00 Blood Culture (Wb) - Anticubital Left Blood Culture - Preliminary No growth in 48 hours. Physical Exam Const alert, oriented x3 and no apparent distress Constitutional Narrative: Right foot: ulcer sub 1st met head, open incision dorsal and medial 1st MTPJ, there is trace purulence from plantar wound and noted visible abscess formation to plantar 1st toe proximal phalanx, otherwise erythema and edema overally continues to improve, no maloder, no streaking, no evidence of acute ischemia, pedal pulses intact, no POP or pain on ROM to foot or ankle. Calf soft and supple with no calf pain bilateral. Assessment & Plan Assessment/Plan (1) Cellulitis of foot, right: (2) Diabetic polyneuropathy: (3) Type 2 diabetes mellitus with foot ulcer: PLAN: Plan Evaluation performed. Reviewed diagnostic data. s/p bedside debridement and I+D has been completed. Noted visible abscess formation pllantar right 1st toe - discussed this with patient and after consent was obtained further I+D debridement was completed as noted below. We have discussed options for osteomyelitis and remaining infection - discussed antibiotics, wound care, and surgical options (amputation). He would like to continue to proceed with attempts at limb salvage, we can continue to monitor and treat without surgery but he understands we may need to proceed with surgical intervention with possible amputation. Reviewed LEAS results - noted to be good arterial flow to foot bilateral. A culture of right foot wound has been obtained and results showing staph aureus (MRSA negative) - patient is on Cefazolin. Infectious Disease on consult. No weightbearing right foot. Keep right foot elevated. Podiatry will continue to follow. Right foot incision and drainage: Discussed with patient in detail, reviewed possible benefits and risks, and alternative options. Patient elected to proceed with the procedure, the consent form was reviewed with him and he freely signed it. After consent was obtained the skin was cleansed with 70% isopropyl alcohol right foot plantar 1st toe, using a 15 blade an incision of less than 1 cm was made over the abscess site, there was immediate purulence that was released, all of this drained out and the loculations of the abscess were broken up using a hemostat, the abscess extended to the fascia layer, did not probe to bone. Betadine solution was applied to site and a gauze, kerlix and natalia dressing was applied. Keep clean, dry and intact, ok to re-inforce with gauze and Kerlix as needed by nursing. Patient tolerated well with no complications. No anesthesia was needed due to patient's peripheral neuroapthy. He was resting in his hospital bed the entire time, A+Ox3 and NAD.
--- NOTE | 2025-01-25 14:33 | PN.HOSP_ITS ---
Reason for Visit Reason for Visit: Diagnoses Elevated white blood cell count, unspecified (01/21/25) Type 2 diabetes mellitus with diabetic polyneuropathy (01/21/25) Type 2 diabetes mellitus with foot ulcer (01/21/25) Type 2 diabetes mellitus with hyperglycemia (01/21/25) Cellulitis of right lower limb (01/21/25) Non-pressure chronic ulcer of other part of unspecified foot with unspecified severity (01/21/25) Osteomyelitis, unspecified (01/21/25) Tobacco use (01/21/25) Subjective Subjective Saw patient at bedside this morning. Patient was sitting back comfortably in bed, conversing normally and in no acute distress. Denied any fevers or chills. Foot was wrapped in Emiliano wrap and he denied any pain or discomfort in the foot. No other acute concerns this morning. Objective Data Objective Data Vital Signs: Vital Signs Temp Pulse Resp BP Pulse Ox O2 Del Method 98.4 F 82 16 112/75 96 Room Air 01/25/25 09:37 01/25/25 09:37 01/25/25 09:37 01/25/25 09:37 01/25/25 09:37 01/25/25 09:37 Oxygen Delivery Method Room Air Weight: 73.5 kg Body Mass Index (BMI) 22.6 Intake & Output: Intake and Output for Last 24 Hours 01/23/25 01/24/25 01/25/25 23:59 23:59 23:59 Intake Total 1450.25 / 1450.25 1325.79 / 1325.79 622.25 / 622.25 Output Total 4200 / 4200 1400 / 1400 800 / 800 Balance -2749.75 / -2749.75 -74.21 / -74.21 -177.75 / -177.75 Lab / Micro Data 01/25/25 06:32 01/25/25 06:32 Labs: Laboratory Results - last 24 hr 01/24/25 16:01: POC Glucose 208 H 01/24/25 22:56: POC Glucose 120 H 01/25/25 06:30: POC Glucose 155 H 01/25/25 06:32: WBC 8.5, RBC 4.46 L, Hgb 13.0, Hct 38.6 L, MCV 86.5, MCH 29.1, MCHC 33.7, RDW Std Deviation 43.2, RDW Coeff of Arjun 13.7, Plt Count 463 H, MPV 8.7, Sodium 134, Potassium 4.3, Chloride 102, Carbon Dioxide 19.4 L, Anion Gap 13, BUN 14, Creatinine 0.76, Estim Creat Clear Calc 111.49, Est GFR (MDRD) Non- Af 105, BUN/Creatinine Ratio 18.1, Glucose 157 H, Calcium 9.4 01/25/25 11:32: POC Glucose 95 Micro: Microbiology 01/21/25 13:01 Wound - Right Foot Gram Stain - Final 01/21/25 13:01 Wound - Right Foot Wound Culture - Preliminary Staphylococcus aureus 01/21/25 13:01 Wound - Right Foot Skin and Soft Tissue MRSA/MSSA (PCR - Final Staphylococcus aureus 01/21/25 11:14 Blood Culture (Wb) - Anticubital Right Blood Culture - Preliminary No growth in 48 hours. 01/21/25 11:00 Blood Culture (Wb) - Anticubital Left Blood Culture - Preliminary No growth in 48 hours. Physical Exam Const alert, oriented x3, no apparent distress and average body habitus Constitutional Narrative: Pleasant middle-age male, sitting back comfortably in bed, conversing normally, in no acute distress. General Appearance: cooperative and comfortable HEENT normocephalic, head/scalp atraumatic, hearing grossly normal bilaterally, nasal mucous membranes and turbinates normal and moist oral mucous membranes Eyes PERRL, EOMs intact bilaterally and conjunctivae normal Neck full ROM Chest inspection of chest normal Resp normal respiratory effort, normal air movement, no use of accessory muscles and clear to auscultation bilaterally Cardio regular rate, regular rhythm, no murmurs and peripheral pulses 2+ throughout GI normal to inspection, nondistended, normoactive bowel sounds, soft to palpation, non-tender and non-distended Back/Spine normal ROM Extremity Extremity Narrative: Right foot in Emiliano wrap from base of toes up to mid calf, stable. Psych mental status grossly normal Assessment & Plan Assessment/Plan (1) Type 2 diabetes mellitus with foot ulcer: (2) Osteomyelitis: PLAN: Plan Patient is a 59-year-old male who presented to [facility] ED on 01/21/2025 with worsening right foot wound. 1. Right diabetic foot ulcer with suspected osteomyelitis ? Podiatry and infectious disease following. PT/OT/case management following. Presented with worsening right foot wound. Right foot MRI showed diffuse abnormal edema/enhancement of mid to distal right foot concerning for cellulitis with probable osteomyelitis involving the proximal phalanx of the right first toe and distal first metatarsal. S/p I&D with podiatry on day of admission, wound cultures growing MSSA. Treated with IV antibiotics and patient doing well. Had lower extremity arterial study that noted good arterial flow bilaterally. Had repeat small I&D done at the bedside on 01/25 with podiatry. Continue nonweightbearing status to right foot. Discussed with podiatry and ID, will have PICC line placed with plan for IV ertapenem for 4-week course with close outpatient follow-up. Case management helping patient to establish with new PCP as plan is for home with home health care who can administer IV antibiotics daily. Tentatively planning for discharge tomorrow. 2. Poorly controlled type 2 diabetes mellitus with hyperglycemia and diabetic neuropathy ? A1c 12.2% on admit. Home regimen was Lantus 22 units at night and Humalog 10 units with meals, but patient had not been taking Humalog and noted he was only eating sporadically with decreased appetite. Has been on Lantus 22 units at night and Humalog 5 units with meals while here with good blood sugar control, and patient reports improvement in his appetite. Plan to discharge home on prior home regimen. Continue home gabapentin. Chronic medical conditions: ? History of DVT: Provoked after knee surgery. Not currently on anticoagulation. ? Osteoarthritis: S/p 5 total knee arthroplasties. Had some med failure issues but no infection. Has chronic pain and sees pain management. Continue home buprenorphine. ? History of hyperlipidemia: Not currently on any medication. Recommend outpatient follow-up. ? Tobacco abuse: Patient quit 2 weeks ago. Nicotine patch available as needed. Encouraged ongoing cessation. DVT prophylaxis: Lovenox CODE STATUS: Full code, verified Expected disposition: Home with home health care, 1 to 2 days Total clinical time spent by myself addressing the patient's medical issues, reviewing all the data, and collaborating with patient's care team: 35 minutes. Charges/Coding Visit Charges Inpatient E&M: 46349 Subs Hosp L2
--- NOTE | 2025-01-25 15:22 | CASEMGMT ---
Dr. Staples states that the pt will likely require IV ATBs moving forward. Pt does not have a PCP. Dr. tSaples states that he is willing to follow HH orders x 1-2 weeks initially. GRECIA CAMPOVERDE to pt room at this time. Pt states that he prefers [facility] for a new PCP. TC to [facility] who states that they are not taking new pts until April. TC to [facility], no answer. TC to [facility], no answer. TC to [place], no answer. TC to [facility] who states that they cannot accept a new pt until one month at the earliest. See ID note. Dr. Meneses states to this RN CM that the pt will be needing Ertapenem IV x1 per day. This RN CM inquired if the pt would be willing/able to attend the [facility]fusion [facility] once per day. Regarding transportation, pt states that he does not have friends or family in the area other than his . Pt states that his works and will not be able to provide him with reliable transportation unless it is no later than 8am. TC to [facility] OP Infusion Center who states that they can accept the pt but not until 0830 daily. RN NIRALI returns to pt room. Pt states that this does not work with him or his . Pt educated that [facility] Transportation Van may be an option. Pt agreeable. TC to [facility] Transportation Services and Gene states that they do not have availability to accommodate the needs of this pt. GRECIA CAMPOVERDE back to pt room. Pt states that he was able to get a PCP appt scheduled for this with Soumya Whitney (BOX OFFICE AGENT-PIE FILLER) through [facility]. Dr. Staples notified. Pt states that he prefers to have HH set up rather than the OP Infusion center. Pt declines wanting to review a local list of in-network HHC agencies or Infusion Companies and states that he prefers [facility] HH and [facility]. TC to [facility] and referral made to [facility] for SN for IV therapy and wound care. Awaiting return response. [facility] notified that Dr Staples is willing to follow the HH orders initially. CM to send referral to [facility] once appropriate. At this time, awaiting final ID recommendations as well as PICC insertion. GRECIA CAMPOVERDE back to pt room. Pt SO at bedside. Pt and pt SO reports that they can be the teachable caregivers. Pt and pt SO deny further questions or concerns at this time. Regarding pt wound, pt states that he plans to f/u with Podiatry ([facility]) weekly and denies wanting to come to the [facility] weekly. CM to follow. Return call to [facility] OP [facility]fusion [facility] and referral canceled. Tentative Plan: DC home tomorrow with pt SO, HHC, Home IV ATB therapy, and f/u with Podiatry as an OP for wound care.
[2025-01-25 16:07] VITALS: BP 141/88; PULSE 84; RESP 16; TEMP 36.6; O2SAT 97
[2025-01-25 17:44] LABS: Bedside Glucose 132 mg/dL (74-106)
[2025-01-25] MEDS: Senna/Docusate Sodium 1 Tablet 2 TABLET PO (18:17)
[2025-01-25 21:52] VITALS: BP 112/77; PULSE 92; RESP 16; TEMP 36.4; O2SAT 97
[2025-01-26] MEDS: Cefazolin 1 GM/50 ML BAG IV ×3 (00:01→11:24)
[2025-01-26] MEDS: Insulin Glargine-YFGN 100 UNIT/ML Pen 22 UNIT SC (00:04)
[2025-01-26 00:28] LABS: Bedside Glucose 105 mg/dL (74-106)
[2025-01-26 00:28] LABS: Bedside Glucose 100 mg/dL (74-106)
[2025-01-26 05:00] VITALS: BP 104/70; PULSE 91; RESP 16; TEMP 36.6; O2SAT 97
[2025-01-26 05:10] VITALS: BMI 22.6
[2025-01-26] MEDS: Acetaminophen 325 MG Tablet 650 MG PO (06:05)
[2025-01-26] MEDS: Senna/Docusate Sodium 1 Tablet 2 TABLET PO (06:05)
[2025-01-26] MEDS: Gabapentin 600 MG Tablet PO (06:05)
[2025-01-26 06:31] LABS: Bedside Glucose 93 mg/dL (74-106)
[2025-01-26] MEDS: Insulin Lispro 100 UNIT/ML INSULN.PEN SC ×2 (08:06→11:18)
[2025-01-26] MEDS: Enoxaparin 40 MG/0.4 ML Syringe SC (10:00)
[2025-01-26 10:17] VITALS: BP 95/66; PULSE 88; RESP 16; TEMP 36.6; O2SAT 95
--- NOTE | 2025-01-26 10:19 | CASEMGMT ---
Dr. Meneses states that the pt will likely DC today. Dr. Staples notified. Awaiting final ID recommendations. TC to [facility] at [facility] who states that they will likely accept for SOC tomorrow, will follow. CHARLEE Tidwell planing secretary administrative assistant, to send referral to [facility]. CM to continue to follow.
--- NOTE | 2025-01-26 10:30 | CASEMGMT ---
Discharge Planning Referral sent to I. Diann Khan DC Planning Asst.
--- NOTE | 2025-01-26 10:41 | CASEMGMT ---
Lucero from [facility] states that they can accept for SOC tomorrow. Dr. Staples notified. RN CM to pt room at this time. Pt states that he is agreeable. Pt states that his will be here later today for transportation home. At this time, [facility] referral is pending. Awaiting final ID recommendations. CM to follow.
--- NOTE | 2025-01-26 10:43 | DS.PCM_ITS ---
Providers Date of Admission: 01/21/25 Date of Discharge: 01/26/25 Primary Care Physician: Denita Primary Care Phys Consultations 01/21/25 14:43 Consult: Infectious Disease Routine Consulting Provider: Cheng Jefferson Reason for Consult: Diabetic foot wound EMERGENT Consult: No Notified: Yes Date Notified: 01/21/25 Time Notified: 14:46 Method of Notification: Text Consult: Onc/Wound/asset protection manager Routine Comment: Consult: Podiatry Routine Consulting Provider: Yehuda Staples Reason for Consult: Diabetic foot wound EMERGENT Consult: No Notified: Yes Date Notified: 01/21/25 Time Notified: 12:49 Method of Notification: ED Physician Initiated Reason For Visit: R :E DIABETIC FOOT WOUND/?OM Diagnosis Discharge Diagnosis (1) Type 2 diabetes mellitus with foot ulcer: Status: Acute Code(s): E11.621 - Type 2 diabetes mellitus with foot ulcer; L97.509 - Non-pressure chronic ulcer of other part of unspecified foot with unspecified severity (2) Osteomyelitis: Status: Acute Code(s): M86.9 - Osteomyelitis, unspecified Medications at Discharge Home Medications insulin glargine 100 unit/mL (3 mL) subcutaneous pen 22 units subcut QHS diabetes 12/19/19 gabapentin 300 mg capsule 600 mg PO BID 05/30/22 acetaminophen 325 mg tablet 650 mg PO Q12H PRN pain 01/21/25 buprenorphine HCl 450 mcg buccal film (Belbuca) 450 mcg buccal Q12H 01/21/25 insulin lispro 100 unit/mL subcutaneous solution (Humalog U-100 Insulin) 10 unit (0.1 mL) subcut TIDCM 30 days #15 mL 01/25/25 ertapenem 1 gram solution for injection 1 g IV Q24H 30 days #10 ea 01/26/25 Hospital Course Operations None Procedures - (Right foot I&D x 2, foot x-ray, lower extremity MRI, lower extremity arterial study) Summary of Care Provided Minutes Spent on Discharge: 35 Hospital Course: Patient is a 59-year-old male who presented to [facility] ED on 01/21/2025 with worsening right foot wound. Hospital course as noted below. Patient discharged home with home health care in stable condition on 01/26. 1. Right diabetic foot ulcer with suspected osteomyelitis ? Podiatry and infectious disease followed. PT/OT/case management followed. Presented with worsening right foot wound. Right foot MRI showed diffuse abnormal edema/enhancement of mid to distal right foot concerning for cellulitis with probable osteomyelitis involving the proximal phalanx of the right first toe and distal first metatarsal. S/p I&D with podiatry on day of admission, wound cultures grew MSSA. Treated with IV antibiotics and patient improved. Had lower extremity arterial study that noted good arterial flow bilaterally. Had repeat small I&D done at the bedside on 01/25 with podiatry. Per ID, PICC line placed and will treat with 4-week course of IV ertapenem on discharge. Home health care will be able to assist with this; patient has appointment with new PCP on and this PCP will be able to continue order for home health care. Per podiatry, maintain nonweightbearing status to right foot and will have patient follow-up in the office shortly after discharge. 2. Poorly controlled type 2 diabetes mellitus with hyperglycemia and diabetic neuropathy ? A1c 12.2% on admit. Home regimen was Lantus 22 units at night and Humalog 10 units with meals, but patient had not been taking Humalog and noted he was only eating sporadically with decreased appetite. Has been on Lantus 22 units at night and Humalog 5 units with meals while here with good blood sugar control, and patient reports improvement in his appetite. Will discharge home on prior home regimen and recommend close outpatient follow-up with his new PCP. Continue home gabapentin. Chronic medical conditions: ? History of DVT: Provoked after knee surgery. Not currently on anticoagulation. ? Osteoarthritis: S/p 5 total knee arthroplasties. Had some med failure issues but no infection. Has chronic pain and sees pain management. Continue home buprenorphine. ? History of hyperlipidemia: Not currently on any medication. Recommend outpatient follow-up. ? Tobacco abuse: Patient quit 2 weeks ago. Nicotine patch available as needed. Encouraged ongoing cessation. Total clinical time spent by myself addressing the patient's medical issues, reviewing all the data, and collaborating with patient's care team: 35 minutes. Physical Exam Const alert, oriented x3, no apparent distress and average body habitus Constitutional Narrative: Pleasant middle-age male, sitting back comfortably in bed, conversing normally, in no acute distress. General Appearance: cooperative and comfortable HEENT normocephalic, head/scalp atraumatic, hearing grossly normal bilaterally, nasal mucous membranes and turbinates normal and moist oral mucous membranes Eyes PERRL, EOMs intact bilaterally and conjunctivae normal Neck full ROM Chest inspection of chest normal Resp normal respiratory effort, normal air movement, no use of accessory muscles and clear to auscultation bilaterally Cardio regular rate, regular rhythm, no murmurs and peripheral pulses 2+ throughout GI normal to inspection, nondistended, normoactive bowel sounds, soft to palpation, non-tender and non-distended Back/Spine normal ROM Extremity Extremity Narrative: Right foot in Emiliano wrap from base of toes up to mid calf, stable. Psych mental status grossly normal Weight / BMI Weight Weight: 73.2 kg Body Mass Index (BMI) 22.6 ABG / Lab / Microbiology Data 01/25/25 06:32 01/25/25 06:32 Laboratory: Laboratory Results - last 24 hr 01/25/25 16:43: POC Glucose 132 H 01/25/25 21:55: POC Glucose 100 01/26/25 00:03: POC Glucose 105 01/26/25 06:10: POC Glucose 93 01/26/25 11:17: POC Glucose 113 H Microbiology: Microbiology 01/21/25 11:14 Blood Culture (Wb) - Anticubital Right Blood Culture - Final No growth in 5 days. 01/21/25 11:00 Blood Culture (Wb) - Anticubital Left Blood Culture - Final No growth in 5 days. 01/21/25 13:01 Wound - Right Foot Gram Stain - Final 01/21/25 13:01 Wound - Right Foot Wound Culture - Preliminary Staphylococcus aureus Gram Positive Cocci 01/21/25 13:01 Wound - Right Foot Skin and Soft Tissue MRSA/MSSA (PCR - Final Staphylococcus aureus D/C Instructions DC O2, CPAP, BIPAP Needs Home O2 Discharge instructions: No Meaningful Use Info Meaningful Use Meaningful Use Diagnoses (Choose all that apply): None applicable Ischemic Stroke Statin Dosing Therapy Reference: STATIN DOSE THERAPY REFERENCE: * Patients > 75 years receive moderate or high dose statin therapy. * Patients 75 years or YOUNGER should receive HIGH intensity statin dose unless contraindicated. You will be required to document reason for non-treatment if statin daily dose does not meet guidelines. HIGH DOSE STATIN THERAPY DAILY Atorvastatin > than or = to 40 mg Rosuvastatin > than or = to 20 mg Amlodipine + Atorvastatin > than or = to 2.5/40 mg Ezetimibe + Simvastatin 10/80 mg Simvastatin 80mg Discharge Plan Admission Admit Date/Time: 01/21/25 12:43 Primary Reason for Your Visit: Right foot wound Attending Provider: Sunil Meneses Primary Care Provider: Care Physician,No Primary Consulting Providers: Cheng Jefferson; Yehuda Staples; Miroslava Sherman Instructions Additional Instructions / Restrictions: Please take insulin glargine 20 units at night and up to 10 units with meals. Recommend that you check your blood sugar before every meal as able. Can consider reducing dose to 5 to 8 units with meal if eating less or blood sugar is low normal prior to the meal. Can discuss further with your new PCP at your visit on . Discharge Orders/Prescriptions Prescriptions: New ertapenem 1 gram recon soln 1 g IV Q24H 30 Days Qty: 10 0RF Continued insulin glargine 100 UNITS/ML insulin pen 22 units subcut QHS gabapentin 300 mg capsule 600 mg PO BID buprenorphine HCl [Belbuca] 450 mcg film 450 mcg BUCCAL Q12H acetaminophen 325 mg tablet 650 mg PO Q12H PRN (Reason: pain) Changed insulin lispro [Humalog U-100 Insulin] 100 unit/mL solution 10 unit subcut TIDCM 30 Days Qty: 15 0RF Referrals / Follow Up: Yehuda Staples DPM [Med Staff - Active Staff] - Cheng Jefferson MD [Med Staff - Active Staff] - Care Physician,No Primary [Primary Care Provider] - Disposition Disposition (needs filled in before D/C Order can be placed): Home Health Service Charges/Coding Visit Charges Inpatient E&M: 57182 Disch Hosp >30min
[2025-01-26] MEDS: 0.9% Saline Lock 10 ML Syringe IV (11:24)
[2025-01-26 12:14] LABS: Bedside Glucose 113 mg/dL (74-106)
--- NOTE | 2025-01-26 12:57 | PCM.PN.ID ---
ID ID: Route of nutrition/ use of supplements: [] Nutritional Intake: [] IV Site: [] Ambriz Catheter: [] Patient overall clinically stable. Tolerating antimicrobial therapy well. Discussed with hospitalist yesterday regards to antimicrobial regimen route and duration. There is concern of residual bone infection in the right great toe. Alert responsive does not appear toxic. PICC line right arm. Right foot dressings are in place. Assessment & Plan Assessment/Plan (1) Diabetic foot ulcer: PLAN: Concern of diabetic feet osteomyelitis right great toe. Will arrange for daily ertapenem 1 g through February 22. Along with weekly blood work. Prescription written.
--- NOTE | 2025-01-26 13:01 | CASEMGMT ---
IV ATB Rx signed by Dr. Villagomez for Ertapenem IV q24 Hr. Rx sent to [facility] via [facility] at this time. The ID MD placed a new order for the ATB to be infused in the hospital prior to DC today. Pt RN is aware. Dr. Staples updated and aware and states that he will have the pt f/u with the screed person on Saturday for further wound care management. Radha, Wound RN, states that she plans to update the wound order for the HH nurse. [facility] to start care tomorrow. CM to follow.
--- NOTE | 2025-01-26 13:58 | CASEMGMT ---
Addendum entered by Radha Finch 01/26/25 14:41: DC Summary sent to [facility] via [facility]. No further needs identified. Pt RN aware. Original Note: [facility] states that they are able to deliver the medications by the end of the day today. [facility] aware that HH is starting tomorrow. RN CM to pt room at this time. Pt states that he is agreeable to this plan. Pt RN @ bedside and is aware. Pt to get the ATB IV infusion here at [facility] and DC home with pt subsequently. Pt plans to f/u with Dr. Staples on Saturday. HH and the pt will also help with wound care. Pt denies further questions, concerns, or needs. PLAN: Home with IV ATB therapy through [facility], HHC SN through [facility] HH, and f/u with Podiatry as an OP for additional wound care.
[2025-01-26] MEDS: Ertapenem Sod 1 GM in 0.9% Normal Saline (50mL MB+) 50 ML IV (14:05)
[2025-01-26 15:48] VITALS: BP 128/81; PULSE 81; RESP 16; TEMP 36.6; O2SAT 94
--- NOTE | 2025-01-26 15:53 | PHA.DC.MR.R ---
Pharmacy [place] Med Reconciliation Pharmacy Service has performed discharge medication reconciliation for this patient. The patient's discharge medication list was reviewed for discrepancies and discrepancies were resolved. Medications at Discharge Home Medications insulin glargine 100 unit/mL (3 mL) subcutaneous pen 22 units subcut QHS diabetes 12/19/19 gabapentin 300 mg capsule 600 mg PO BID 05/30/22 acetaminophen 325 mg tablet 650 mg PO Q12H PRN pain 01/21/25 buprenorphine HCl 450 mcg buccal film (Belbuca) 450 mcg buccal Q12H 01/21/25 insulin lispro 100 unit/mL subcutaneous solution (Humalog U-100 Insulin) 10 unit (0.1 mL) subcut TIDCM 30 days #15 mL 01/25/25 ertapenem 1 gram solution for injection 1 g IV Q24H 30 days #10 ea 01/26/25
== END 2025-01-26 17:17 | disposition home health service (06) | DRG 623 ==
LOC: ED 10:56 → MS3 14:34
PROVIDERS: Internal Medicine Infectious Disease; Admitting Provider Internal Medicine; Emergency Provider Surgery; Visit Provider Hospitalist
DX: E11.621 Type 2 diabetes mellitus with foot ulcer (principal); L02.611 Cutaneous abscess of right foot; L03.115 Cellulitis of right lower limb; M86.9 Osteomyelitis, unspecified; E11.42 Type 2 diabetes mellitus with diabetic polyneuropathy; D72.829 Elevated white blood cell count, unspecified; B95.61 Methicillin susceptible Staphylococcus aureus infection as the cause of diseases classified elsewhere; E11.65 Type 2 diabetes mellitus with hyperglycemia; M19.90 Unspecified osteoarthritis, unspecified site; E86.0 Dehydration; Z79.4 Long term (current) use of insulin; E78.5 Hyperlipidemia, unspecified; L97.519 Non-pressure chronic ulcer of other part of right foot with unspecified severity; E11.69 Type 2 diabetes mellitus with other specified complication; Z87.891 Personal history of nicotine dependence; Z83.3 Family history of diabetes mellitus; Z86.718 Personal history of other venous thrombosis and embolism; Z96.653 Presence of artificial knee joint, bilateral
CPT/HCPCS: 36415; 36569; 73630; 73720; 80048; 80053; 80202; 82962; 83036; 83605; 83735; 84100; 85025; 85027; 85652; 86140; 87040; 87070; 87077; 87186; 87205; 87640; 93923; 94668; 97116; 97162; 97530; 99252; 99285; A9575; A4216; G0463

== ENCOUNTER → 2025-02-03 | Outpatient (CLI) | payer OTHER, SELFPAY ==
[2025-02-03 15:40] LABS: Hematocrit 39.2 % (40-54); Hemoglobin 12.3 g/dL (13.0-16.5); Mean Corp Hgb Conc 31.4 g/dL (32-36); Mean Corpuscular Hgb 28.6 pg (27.0-32.0); Mean Corpuscular Volume 91.2 fL (80-94); Mean Platelet Vol. 9.8 fl (6.2-12.0); Platelet Count 430 K/mm3 (150-450); RBC Distribution Width CV 13.9 % (11.6-14.6); RBC Distribution Width SD 46.7 fl (35.1-43.9); White Blood Count 8.9 K/mm3 (4.4-11.0)
[2025-02-03 16:05] LABS: ALB/GLOB Ratio 0.8 RATIO (0.9-2.4); AST(SGOT) 19 U/L (<=37); Alanine Aminotransfer ALT/SGPT 16 U/L (<=46); Albumin, Serum 3.5 g/dL (3.5-5.0); Alkaline Phosphatase 107 U/L (40-129); Anion Gap 10 (5-15); BUN 25 mg/dL (4-19); Calcium,Total 9.5 mg/dL (7.6-11.0); Chloride 101 mmol/L (98-108); Creatinine, Serum 0.87 mg/dL (0.70-1.20); EST Glomerular Filtration Rate 101 (>60); Globulin 4.5 g/dL (2.2-4.2); Glucose 130 mg/dL (70-99); Potassium 4.2 mmol/L (3.3-5.1); Sodium Level 135 mmol/L (133-145); Total Bilirubin 0.21 mg/dL (0.00-1.30)
== END | disposition home or self-care (01) ==
LOC: LABSPEC 13:01
PROVIDERS: Visit Provider Internal Medicine Infectious Disease
DX: M86.171 Other acute osteomyelitis, right ankle and foot (principal)
CPT/HCPCS: 80053; 85027

== ENCOUNTER → 2025-02-09 | Outpatient (CLI) | payer OTHER, SELFPAY | END | disposition home or self-care (01) | LOC: LABSPEC 16:32 | PROVIDERS: Visit Provider Podiatrist | DX: L03.115 Cellulitis of right lower limb (principal) | CPT/HCPCS: 87070; 87205 ==

== ENCOUNTER 2025-02-10 12:29 | Outpatient (CLI) | payer OTHER, SELFPAY ==
[2025-02-10 16:01] LABS: Hematocrit 37.7 % (40-54); Mean Corp Hgb Conc 31.8 g/dL (32-36); Mean Corpuscular Hgb 28.4 pg (27.0-32.0); Mean Corpuscular Volume 89.3 fL (80-94); Mean Platelet Vol. 9.7 fl (6.2-12.0); Platelet Count 301 K/mm3 (150-450); RBC Distribution Width CV 14.4 % (11.6-14.6); RBC Distribution Width SD 46.3 fl (35.1-43.9); Red Blood Count 4.22 M/mm3 (4.6-6.2); White Blood Count 8.6 K/mm3 (4.4-11.0)
[2025-02-10 16:52] LABS: ALB/GLOB Ratio 0.8 RATIO (0.9-2.4); AST(SGOT) 17 U/L (<=37); Alanine Aminotransfer ALT/SGPT 24 U/L (<=46); Albumin, Serum 3.5 g/dL (3.5-5.0); Alkaline Phosphatase 120 U/L (40-129); Anion Gap 9 (5-15); BUN 24 mg/dL (4-19); BUN/Creat Ratio 29.1 RATIO (10-20); Calcium,Total 9.2 mg/dL (7.6-11.0); Carbon Dioxide 23.5 mmol/L (21.0-32.0); Chloride 104 mmol/L (98-108); Creatinine, Serum 0.82 mg/dL (0.70-1.20); EST Glomerular Filtration Rate 102 (>60); Globulin 4.3 g/dL (2.2-4.2); Glucose 159 mg/dL (70-99); Potassium 5.1 mmol/L (3.3-5.1); Protein, Total 7.9 g/dL (5.9-8.4); Sodium Level 136 mmol/L (133-145); Total Bilirubin 0.24 mg/dL (0.00-1.30)
== END 2025-02-10 23:59 | disposition home or self-care (01) ==
LOC: LABSPEC 12:30
PROVIDERS: Visit Provider Internal Medicine Infectious Disease
DX: M86.9 Osteomyelitis, unspecified (principal)
CPT/HCPCS: 80053; 85027

== ENCOUNTER 2025-02-17 11:28 | Outpatient (CLI) | payer OTHER, SELFPAY ==
[2025-02-17 15:32] LABS: Hematocrit 38.3 % (40-54); Hemoglobin 12.1 g/dL (13.0-16.5); Mean Corp Hgb Conc 31.6 g/dL (32-36); Mean Corpuscular Hgb 28.8 pg (27.0-32.0); Mean Corpuscular Volume 91.2 fL (80-94); Mean Platelet Vol. 9.8 fl (6.2-12.0); Platelet Count 312 K/mm3 (150-450); RBC Distribution Width CV 14.6 % (11.6-14.6); RBC Distribution Width SD 48.6 fl (35.1-43.9); White Blood Count 9.8 K/mm3 (4.4-11.0)
[2025-02-17 15:52] LABS: ALB/GLOB Ratio 0.9 RATIO (0.9-2.4); AST(SGOT) 21 U/L (<=37); Alanine Aminotransfer ALT/SGPT 19 U/L (<=46); Albumin, Serum 3.6 g/dL (3.5-5.0); Alkaline Phosphatase 100 U/L (40-129); Anion Gap 12 (5-15); BUN 25 mg/dL (4-19); BUN/Creat Ratio 28.4 RATIO (10-20); Calcium,Total 8.8 mg/dL (7.6-11.0); Carbon Dioxide 23.2 mmol/L (21.0-32.0); Chloride 104 mmol/L (98-108); Creatinine, Serum 0.89 mg/dL (0.70-1.20); EST Glomerular Filtration Rate 100 (>60); Globulin 4.1 g/dL (2.2-4.2); Glucose 51 mg/dL (70-99); Potassium 3.9 mmol/L (3.3-5.1); Protein, Total 7.7 g/dL (5.9-8.4); Sodium Level 139 mmol/L (133-145); Total Bilirubin 0.34 mg/dL (0.00-1.30)
== END 2025-02-17 23:59 | disposition home or self-care (01) ==
PROVIDERS: Referring Provider Internal Medicine Infectious Disease; Visit Provider Internal Medicine Infectious Disease
DX: M86.9 Osteomyelitis, unspecified (principal)
CPT/HCPCS: 36415; 80053; 85027